=== PATIENT | female | born 1995 | race Caucasian/White ===

== ENCOUNTER 2020-10-16 17:41 | Emergency (ER) | payer OTHER, SELFPAY ==
--- NOTE | 2020-10-16 17:40 | RAD_ITS ---
STUDY: X-RAY - RIGHT ANKLE REASON FOR EXAM: Female, 25 years old. Fall. Lateral foot pain. TECHNIQUE: 3 view(s) of the ankle. COMPARISON: 05/07/2014. Right foot, 10/16/2020. FINDINGS: Normal visualized distal tibia and fibula. Normal medial and lateral malleoli. Normal tibiotalar articulation and ankle mortise. Normal visualized talus and calcaneus. The visualized subtalar, talonavicular, calcaneocuboid and tarsal articulations are normal. There is evidence of a fracture of the distal fifth metatarsal. The soft tissue structures are unremarkable. RAD/Ankle min 3 Views IMPRESSION: 1. Normal x-ray examination of the ankle. 2. Fracture of the fifth metatarsal. Electronically Signed: Jamison Langley DO at 18:02 EDT Tel [phone], Service support ,
[2020-10-16 17:41] VITALS: BP 142/97; PULSE 88; RESP 16; TEMP 36.2; O2SAT 97; BMI 25.0
--- NOTE | 2020-10-16 17:43 | RAD_ITS ---
STUDY: X-RAY - RIGHT FOOT CLINICAL: Female, 25 years old. Fall. TECHNIQUE: 3 view(s) of the foot. COMPARISON: Right foot, 05/07/2014. FINDINGS: Normal talus, calcaneus, and tarsal bones. Normal visualized subtalar, talonavicular, calcaneocuboid, tarsal and tarsometatarsal articulations. Normal first through fourth metatarsi. There is a spiral fracture of the distal shaft of the fifth metatarsal. Normal metatarsophalangeal joint of the great toe. Normal tibial and fibular sesamoid bones. Normal interphalangeal joint of the great toe. Normal phalanges of the great toe. Normal second through fifth metatarsophalangeal joints. Normal interphalangeal joints and phalanges of the lesser toes. Lateral soft tissue swelling. RAD/Foot min 3 Views IMPRESSION: Fracture of the distal fifth metatarsal with associated soft tissue swelling. Electronically Signed: Jamison Langley DO at 18:01 EDT Tel [phone], Service support ,
--- NOTE | 2020-10-16 19:36 | ED.VIS.FALL ---
HPI HPI - Fall History of Present Illness Chief Complaint: Fall Informant: patient Occured/Mechanism Occurred: Today Usually ambulates: Without assistance Pain/Injury Location: Right foot and ankle Pain Location: lower extremity Quality of Pain: Aching Worsened by: Movement Relieved by: Nothing Associated Symptoms Associated Symptoms: Negative for Parasthesias, Weakness, Inability to ambulate and Loss of consciousness Narrative Narrative: Patient presents with right foot and ankle injury that occurred today after a fall. Patient states she fell down some steps. Patient denies any head injury or loss of consciousness. Patient admits to some bruising and swelling over the right fifth metatarsal area. Patient also complains of pain and swelling over the lateral aspect of her right ankle. Patient admits to an abrasion over her right knee as well. Patient states her pain is worse with movement. Patient describes her pain as aching. Patient denies any paresthesias or weakness. Patient denies any other injuries. PFSH PFSH no medical history Home Medications Control Pills 1 tab PO DAILY 03/08/15 [History Last Taken Unknown] hydrocodone-acetaminophen 1 tab PO Q6H PRN PRN 3 Days #10 tablet 10/16/20 [Rx Last Taken Unknown] Allergy/AdvReac Type Severity Reaction Status Date / Time cefuroxime [From Ceftin] Allergy Rash Verified 10/16/20 17:43 no surgical history Social History Smoking Status: Never smoker ROS ROS ED Constitutional Constitutional ED: Denies chills or fever(s) Eyes Eyes: Denies blurry vision or change in vision ENT ENT ED: Denies rhinorrhea or sore throat Cardiovascular Cardiovascular: Denies chest pain or palpitations Respiratory/Chest Respiratory/Chest: Denies cough or dyspnea Gastrointestinal Gastrointestinal: Denies nausea or vomiting Genitourinary Genitourinary ED: Denies dysuria or hematuria Musculoskeletal Musculoskeletal: Denies back pain or neck pain Integumentary Denies abscess or rash Neurologic Neurologic: Denies headache(s) or weakness Allergic/Immunologic Allergic/Immunologic ED: Denies mouth swelling or urticaria EXAM Physical Exam Const Vital Signs: 10/16/20 17:41 Temperature 97.2 F L Temperature Source Temporal Pulse Rate 88 Respiratory Rate 16 Blood Pressure 142/97 H Blood Pressure Mean 112 Pulse Ox 97 Oxygen Delivery Method Room Air Positive well nourished and well developed General Appearance ED: well developed HEENT Reports normocephalic atraumatic Neck full ROM Extremity Extremity Narrative: There is tenderness, edema, and ecchymosis over the lateral aspect of the right foot. There is also tenderness and edema over the lateral malleolus of the right ankle. There is no deformity noted. Range of motion was limited in all motions of the right foot and ankle secondary to pain. Sensation was intact to light touch in all digits. Capillary refill was less than 2 seconds in all digits. There is superficial abrasion over the anterior aspect of the right knee. There is no active bleeding noted. There is full range of motion. There is no effusion. Pedal pulses are equal bilaterally. Neuro oriented x3, CN's II-XII intact bilaterally, moves all extremities, no focal motor deficits and no sensory deficits noted Sensorium / Orientation: alert Psych mental status grossly normal Skin Trauma: abrasion MDM MDM MDM Narrative Medical decision making narrative: X-rays of the right foot were obtained. There are 3 views. On my interpretation, there is a spiral oblique fracture of the distal fifth metatarsal shaft. There is minimal displacement and no angulation. Radiologist also interpreted the x-ray and agrees. X-rays of the right ankle were obtained. There are 3 views. There are no fractures of the ankle bones on my interpretation, there is a fracture of the fifth metatarsal. Radiologist also interpreted the x-rays and agrees. Patient was given a walking boot. Patient was instructed to ice and elevate the right foot and ankle. Patient was given a prescription for [place]. Patient declined crutches. Patient was instructed to follow-up with her primary care physician in 5 to 7 days. Patient was also given referral for podiatry. Patient and family understood and were agreeable with the plan. All questions were answered. Radiography Diagnostic Testing: Radiology Impression Ankle X-Ray 10/16/20 17:40 IMPRESSION: 1. Normal x-ray examination of the ankle. 2. Fracture of the fifth metatarsal. Electronically Signed: Jamison Langley DO at 18:02 EDT Tel [phone], Service support , Foot X-Ray 10/16/20 17:43 IMPRESSION: Fracture of the distal fifth metatarsal with associated soft tissue swelling. Electronically Signed: Jamsion Langley DO at 18:01 EDT Tel [phone], Service support , Discharge Plan Triage Chief Complaint: Fall ED Provider: Gael Beltre Dx/Rx/DC Orders Clinical Impression: Closed nondisplaced fracture of fifth right metatarsal bone Instructions: ED Fracture, Foot Prescriptions: New hydrocodone-acetaminophen [hydrocodone-acetaminophen] 1 TABLET tablet 1 tab PO Q6H PRN PRN (Reason: Pain) 3 Days Qty: 10 RF: 0 No Action Control Pills 1 tab PO DAILY RF: 0 Primary Care Provider: Melvin Langley Referrals: Everardo Small DPM [STAFF PHYSICIAN] - 3-5 Days Melvin Langley MD [Primary Care Provider] - 5-7 Days Disposition Disposition: Home, Self Care
[2020-10-16] MEDS: HYDROcodone Bitartrate/Apap 5/325 Tablet PO (20:51)
[2020-10-16 20:52] VITALS: BP 123/74; PULSE 80; RESP 16; O2SAT 98
== END 2020-10-16 21:24 | disposition home or self-care (01) ==
LOC: ED 19:56
PROVIDERS: Emergency Provider Emergency Medicine; PCP Family Medicine
DX: S92.354A Nondisplaced fracture of fifth metatarsal bone, right foot, initial encounter for closed fracture (principal); W10.9XXA Fall (on) (from) unspecified stairs and steps, initial encounter; Y93.01 Activity, walking, marching and hiking; Y92.89 Other specified places as the place of occurrence of the external cause; Y99.8 Other external cause status
CPT/HCPCS: 73610; 73630; 99284

== ENCOUNTER → 2020-10-19 15:18 | Outpatient (CLI) | payer OTHER, SELFPAY ==
[2020-10-19 18:49] LABS: Vitamin D,25 Hydroxy 33.4 ng/mL
== END ==
PROVIDERS: PCP Family Medicine; Referring Provider Podiatrist; Visit Provider Podiatrist
DX: E55.9 Vitamin D deficiency, unspecified (principal); S92.309A Fracture of unspecified metatarsal bone(s), unspecified foot, initial encounter for closed fracture
CPT/HCPCS: 36415; 82306

== ENCOUNTER 2021-02-23 18:49 | Emergency (ER) | payer OTHER, SELFPAY ==
[2021-02-23 18:50] VITALS: BP 131/87; PULSE 87; RESP 18; TEMP 35.9; O2SAT 100; BMI 25.0
[2021-02-23 19:56] VITALS: BP 131/87; PULSE 87; RESP 18; TEMP 35.9; O2SAT 100
--- NOTE | 2021-02-23 20:12 | CT_ITS ---
STUDY: CTA CHEST REASON FOR EXAM: Female, 25 years old. Covid positive pain under right breast RADIATION DOSAGE (If Supplied By Facility): CTDIvol = ( 8.89 ) mGy, DLP = ( 273.85 ) mGycm TECHNIQUE: The examination was performed with the intravenous administration of IV 100mL Isovue-370. Post-processing of the angiographic images was performed, with multiplanar reformation and 3D reconstruction. Individualized dose optimization techniques were used for this CT. COMPARISON: None. FINDINGS: There is no acute or chronic pulmonary embolism. Aorta is of normal caliber. Lungs are clear. There is no pneumothorax, pulmonary edema or pleural effusions. Mediastinal contents are normal. Osseous structures are intact. Abdominal structures are unremarkable. CT/CTA Chest W/WO Contrast IMPRESSION: 1. No pulmonary embolism 2. No acute chest disease. Electronically Signed: Tc Gregory MD at 21:24 EST Tel , Service support ,
--- NOTE | 2021-02-23 20:14 | EX.ED.DYSGE1 ---
HPI History of Present Illness Chief Complaint: Shortness of Breath Informant: patient Narrative Narrative: 25-year-old female presenting to the emergency room with right lower chest pain. Patient was able to come out of her Covid quarantine on Monday and states that she really had some mild symptoms. She started off with some mild rhinorrhea and then began to have a cough. That subsided and today's cough has been rather dry as compared to the moist cough that it had been. She notes a sharp pain lower anterior right chest that is worse with coughing and deep breathing. Not necessarily tender to palpation. [facility] Medical History (Updated 02/23/21 @ 21:[address] Bulmaro Zaldivar DO) COVID-19 Home Medications Control Pills 1 tab PO DAILY 03/08/15 [History Last Taken Unknown] Allergy/AdvReac Type Severity Reaction Status Date / Time cefuroxime [From Ceftin] Allergy Rash Verified 02/23/21 18:52 Social History (Updated 02/23/21 @ 20:[address] Bulmaro Zaldivar DO) Smoking Status: Never smoker substance use type: does not use ROS ROS ED Constitutional Constitutional ED: Denies chills, fever(s) or weight loss Eyes Eyes: Denies change in vision or diplopia ENT ENT ED: Reports rhinorrhea; Denies ear pain or sore throat Cardiovascular Cardiovascular: Reports chest pain; Denies orthopnea, palpitations or racing heartbeat Respiratory/Chest Respiratory/Chest: Reports cough; Denies dyspnea or orthopnea Gastrointestinal Gastrointestinal: Denies abdominal pain, diarrhea, nausea or vomiting Genitourinary Genitourinary ED: Denies dysuria, hematuria or urinary frequency Musculoskeletal Musculoskeletal: Denies arthralgias or myalgias Integumentary Denies abscess or rash Neurologic Neurologic: Denies headache(s) or weakness Psychiatric Psychiatric: Denies anxiety, depression, suicidal ideation or suicidal thoughts Endocrine Endocrinology: Denies polydipsia, polyphagia or polyuria Allergic/Immunologic Allergic/Immunologic ED: Denies mouth swelling, tongue swelling or urticaria EXAM Physical Exam Const Vital Signs: 02/23/21 18:50 02/23/21 19:56 Temperature 96.7 F L 96.7 F L Temperature Source Temporal Temporal Pulse Rate 87 87 Respiratory Rate 18 18 Respiratory Effort Short of Breath Blood Pressure 131/87 H 131/87 H Blood Pressure Mean 101 101 Pulse Ox 100 100 Oxygen Delivery Method Room Air Room Air Positive well nourished and well developed General Appearance ED: well developed HEENT Reports normocephalic, head/scalp atraumatic, TM's clear and moist mucous membranes Negative for trauma Tympanic Membrane ED: Yes TM's clear Eyes PERRL and EOMs intact bilaterally Neck no lymphadenopathy, supple and no JVD Resp normal respiratory effort and clear to auscultation bilaterally Cardio regular rate, regular rhythm and no murmurs GI normal to inspection, nondistended, normoactive bowel sounds and non-tender Palpation: soft Back/Spine no CVA tenderness and normal ROM Extremity normal to inspection General Extremety ED: Negative for edema General Extremity: Negative for edema Neuro oriented x3 and CN's II-XII intact bilaterally Sensorium / Orientation: alert Motor Exam: strength 5/5 throughout Psych mental status grossly normal Mood & Affect: Negative for depressed or tearful Skin no rashes or lesions noted and no wounds MDM MDM MDM Narrative Medical decision making narrative: Basic blood work was negative. CTA of the chest shows no pulmonary embolism or acute chest disease. Patient will be discharged home with supportive care return if worsening or concerns Lab Data Attestation: I reviewed the patient's lab results. Labs: Laboratory Results - last 24 hr 02/23/21 02/23/21 02/23/21 20:25 20:25 20:25 WBC 6.0 RBC 4.67 Hgb 14.0 Hct 42.6 MCV 91.2 MCH 30.0 MCHC 32.9 RDW Std Deviation 39.7 RDW Coeff of [place] 11.8 Plt Count 324 MPV 9.1 Immature Gran % (Auto) 0.300 Neut % (Auto) 47.4 Lymph % (Auto) 36.2 [place] % (Auto) 9.9 Eos % (Auto) 5.4 H Baso % (Auto) 0.8 Absolute Neuts (auto) 2.8 Absolute Lymphs (auto) 2.16 Nucleated RBC % 0 Sodium 141 Potassium 4.0 Chloride 105 Carbon Dioxide 27.0 Anion Gap 9 BUN 18 Creatinine 0.94 Estim Creat Clear Calc 88.97 Est GFR (MDRD) Af Amer 93 Est GFR (MDRD) Non-Af 77 BUN/Creatinine Ratio 19.2 Glucose 85 Calcium 9.1 Serum , Qual NEGATIVE Radiography Diagnostic Testing: Clinical Impression(s) from Imaging Studies Chest CTA 02/23/21 20:12 IMPRESSION: 1. No pulmonary embolism 2. No acute chest disease. Electronically Signed: Tc Gregory MD at 21:24 EST Tel , Service support , Discharge Plan Triage Chief Complaint: Shortness of Breath ED Provider: Bulmaro Zaldivar Dx/Rx/DC Orders Clinical Impression: Chest pain Instructions: ED Chest Pain, Uncertain Cause Prescriptions: No Action Control Pills 1 tab PO DAILY RF: 0 Primary Care Provider: Melvin Langley Referrals: Melvin Langley MD [Primary Care Provider] - As Needed Disposition Disposition: Home, Self Care
[2021-02-23 20:32] LABS: Absolute Lymphocyte Count 2.16 X10^3/uL (0.83-4.51); Absolute Neutrophil Count 2.8 X10^3/uL (2.0-7.7); Basophil# 0.05 X10^3/uL; Basophil% 0.8 % (0-1); Eosinophil# 0.32 X10^3/uL; Eosinophils% 5.4 % (0-5); Hematocrit 42.6 % (37-47); Lymphocyte # 2.16 X10^3/ul (0.83-4.51); Lymphocyte % 36.2 % (19-41); Mean Corp Hgb Conc 32.9 g/dL (32-36); Mean Corpuscular Volume 91.2 fL (81-99); Mean Platelet Vol. 9.1 fl (6.2-12.0); Monocyte# 0.59 X10^3/uL; Monocyte% 9.9 % (0-10); NRBC Flagged by Analyzer 0 % (0-5); Neutrophil # 2.83 X10^3/uL (2.7-7.7); Neutrophil % 47.4 % (47-70); Platelet Count 324 K/mm3 (150-450); RBC Distribution Width CV 11.8 % (11.6-14.6); RBC Distribution Width SD 39.7 fl (35.1-43.9); Red Blood Count 4.67 M/mm3 (4.2-5.4)
[2021-02-23 20:49] LABS: Internal QC Validated? YES +Cl - CLEAR BKGD; Pregnancy, Serum, hCG Quali. NEGATIVE Negative
[2021-02-23 20:53] LABS: Anion Gap 9 (5-15); BUN 18 mg/dL (7-18); BUN/Creat Ratio 19.2 RATIO (10-20); Calcium,Total 9.1 mg/dL (8.5-10.1); Chloride 105 mmol/L (98-107); Creatinine, Serum 0.94 mg/dL (0.55-1.02); EST Glomerular Filtration Rate 77 mL/min (>60); Est Glom Filt Rate - Afr Amer 93 mL/min (>60); Estimated Creatinine Clearance 88.97 ml/min; Glucose 85 mg/dL (74-106); Sodium Level 141 mmol/L (136-145)
== END 2021-02-23 21:57 | disposition home or self-care (01) ==
PROVIDERS: Emergency Provider Emergency Medicine; PCP Family Medicine; Visit Provider Emergency Medicine
DX: R07.9 Chest pain, unspecified (principal); R06.02 Shortness of breath; Z79.3 Long term (current) use of hormonal contraceptives; Z86.16 Personal history of COVID-19
CPT/HCPCS: 71275; 80048; 84703; 85025; 99284; Q9967

== ENCOUNTER → 2021-09-02 | Outpatient (CLI) | payer MEDICAID, SELFPAY ==
[2021-09-02 12:53] LABS: T4 Free Direct 1.29 ng/dL (0.76-1.46); Thyroid Stim Hormone (TSH) 1.93 uIU/mL (0.358-3.74)
== END | disposition home or self-care (01) ==
LOC: MTLAB 10:23
PROVIDERS: PCP Family Medicine; Referring Provider Family Medicine; Visit Provider Family Medicine
DX: N92.6 Irregular menstruation, unspecified (principal)
CPT/HCPCS: 36415; 84439; 84443

== ENCOUNTER → 2021-11-01 | Outpatient (CLI) | payer MEDICAID, SELFPAY ==
[2021-11-12 15:08] LABS: Lyme IgG P18 Ab Absent (.); Lyme IgG P23 Ab Absent (.); Lyme IgG P28 Ab Absent (.); Lyme IgG P30 Ab Absent (.); Lyme IgG P39 Ab Absent (.); Lyme IgG P41 Ab Absent (.); Lyme IgG P45 Ab Absent (.); Lyme IgG P58 Ab Absent (.); Lyme IgG P66 Ab Absent (.); Lyme IgG P93 Ab Absent (.); Lyme IgM P23 Ab Absent (.); Lyme IgM P39 Ab Absent (.); Lyme IgM P41 Ab Absent (.)
[2021-11-12 20:40] LABS: Lyme IgG WB Interpretation Negative (.); Lyme IgM WB Interpretation Negative (.)
== END | disposition home or self-care (01) ==
LOC: MTLAB 13:42
PROVIDERS: PCP Family Medicine; Referring Provider Family Medicine; Visit Provider Family Medicine
DX: S30.816A Abrasion of unspecified external genital organs, female, initial encounter (principal); A69.20 Lyme disease, unspecified; W57.XXXA Bitten or stung by nonvenomous insect and other nonvenomous arthropods, initial encounter
CPT/HCPCS: 36415; 86617

== ENCOUNTER → 2021-11-29 | Outpatient (CLI) | payer MEDICAID, SELFPAY ==
--- NOTE | 2021-11-29 | LES_PTH ---
PATIENT: ARIES PARISI [facility][id number] AGE/SX: 26/F ROOM: RE11/29/[address]: Dr. Bella Ma DO : 1995 BED: DIS: 11/29/2021 SPEC #: [id number] RECD: 11/29/21 18:02 STATUS: AME ALTAGRACIA #: [id number] SHANTELL: 11/29/21 00:[address]: Bella Ma DEPT: SURGICAL PATHOLOGY RECD BY: Tyler Leos ENTERED: 11/30/21 11:46 SP TYPE: Lesion OTHR DR: Dr. Melvin Langley MD Tissues: Skin of eyelid, NOS Procedures: Surgery Specimen Level IV HEADER OPERATION: Excision right preauricular lesion PRE-OP DIAGNOSIS: Telangiectasia, painful, cyst, mucinous TISSUE SUBMITTED: Preauricular skin lesion MICROSCOPIC DIAGNOSIS Preauricular skin lesion, biopsy: Granulation with associated acute and chronic inflammation. Focal changes suggestive of an epidermal inclusion cyst. See comment. AM:[email or web address] 12/01/2021 COMMENT There are focal changes suggestive of an epidermal inclusion cyst. Clinical correlation is suggested. MICROSCOPIC DESCRIPTION Slides are reviewed. GROSS DESCRIPTION Received in fixative is one container labeled with the patient's name and designated right preauricular lesion. The specimen consists of a shave biopsy of beverly-white skin measuring 0.6 x 0.4 x 0.1 cm. This piece is inked and serially sectioned. Also present in the container is a small piece of beverly-white skin measuring 0.2 x 0.1 x 0.1 cm. The entire specimen is submitted in one cassette. / LUIS F:arcadio 11/30/2021 TC:2 CPT: 10623
== END | disposition home or self-care (01) ==
LOC: LABSPEC 14:08
PROVIDERS: PCP Family Medicine; Visit Provider Family Medicine
DX: I78.1 Nevus, non-neoplastic (principal)
CPT/HCPCS: 88305

== ENCOUNTER → 2022-11-30 | Outpatient (CLI) | payer OTHER, MEDICAID, SELFPAY | END | disposition home or self-care (01) | LOC: LABSPEC 12:56 | PROVIDERS: PCP Family Medicine; Referring Provider Registered Nurse; Visit Provider Registered Nurse | DX: Z34.90 Encounter for supervision of normal pregnancy, unspecified, unspecified trimester (principal); Z3A.00 Weeks of gestation of pregnancy not specified | CPT/HCPCS: 87086; 87088 ==

== ENCOUNTER → 2022-12-14 | Outpatient (CLI) | payer OTHER, SELFPAY ==
[2022-12-14 14:23] LABS: NATERA MAILED SPECIMEN
[2022-12-14 16:04] LABS: Absolute Lymphocyte Count 2.41 X10^3/uL (0.83-4.51); Absolute Neutrophil Count 8.5 X10^3/uL (2.0-7.7); Basophil# 0.07 X10^3/uL; Basophil% 0.6 % (0-1); Eosinophil# 0.14 X10^3/uL; Eosinophils% 1.2 % (0-5); Hematocrit 38.5 % (37-47); Hemoglobin 13.1 g/dL (12.0-15.0); Lymphocyte # 2.41 X10^3/ul (0.83-4.51); Lymphocyte % 20.5 % (19-41); Mean Corpuscular Hgb 31.3 pg (27.0-32.0); Mean Corpuscular Volume 91.9 fL (81-99); Mean Platelet Vol. 9.6 fl (6.2-12.0); Monocyte# 0.56 X10^3/uL; Monocyte% 4.8 % (0-10); NRBC Flagged by Analyzer 0 % (0-5); Neutrophil # 8.49 X10^3/uL (2.7-7.7); Neutrophil % 72.3 % (47-70); Platelet Count 362 K/mm3 (150-450); RBC Distribution Width CV 12.7 % (11.6-14.6); RBC Distribution Width SD 42.1 fl (35.1-43.9); Red Blood Count 4.19 M/mm3 (4.2-5.4); White Blood Count 11.7 K/mm3 (4.4-11.0)
[2022-12-14 17:35] LABS: HIV - WCH Non-Reactive (Nonreactive); Hepatitis B Surface Antigen Non-Reactive (Nonreactive); Hepatitis C Antibody Non-Reactive (Nonreactive); Rubella IgG Reactive (Nonreactive); Syphilis Antibodies Non-reactive
== END | disposition home or self-care (01) ==
LOC: MTLAB 12:48
PROVIDERS: PCP Family Medicine; Referring Provider Registered Nurse; Visit Provider Registered Nurse
DX: Z34.90 Encounter for supervision of normal pregnancy, unspecified, unspecified trimester (principal); Z3A.00 Weeks of gestation of pregnancy not specified
CPT/HCPCS: 36415; 85025; 86703; 86762; 86780; 86803; 86850; 86900; 86901; 87340; 87491; 87591

== ENCOUNTER 2023-01-08 14:05 | Emergency (ER) | payer OTHER, MEDICAID, SELFPAY ==
[2023-01-08 14:06] VITALS: BP 135/79; PULSE 87; RESP 16; TEMP 37.1; O2SAT 97; BMI 26.2
--- NOTE | 2023-01-08 14:50 | US_ITS ---
STUDY: SECOND AND THIRD TRIMESTER OBSTETRICAL ULTRASOUND - LIMITED REASON FOR EXAM: Female, 27 years old vaginal bleeding LMP: 09/23/2022 PRIOR ULTRASOUND: None. TECHNIQUE: Transabdominal TECHNICAL QUALITY: Adequate. FINDINGS: There is a single intrauterine fetus. The fetus is in a breech presentation. There is demonstrated cardiac activity with a heart rate of 164 bpm. There is a normal amniotic fluid volume. The largest amniotic fluid pocket measures 3.6 cm. The amniotic fluid index (DAVID) is cm. The placenta is anterior in location and is not low lying. There are Grade 0 placental changes. The cervix measures 3.4 cm cm in length. BIOMETRY: BPD: : weeks, days HC: : weeks, days AC: 9.3 cm: 15 weeks, 3 days FL: : weeks, days Age by LMP: 15 weeks, 2 days. ROMY by LMP: 06/30/2023. age by prior US: weeks, days. ROMY by prior US: . age by current US: 15 weeks, 3 days. ROMY by current US: 06/29/2023. Estimated weight: grams, +/- grams, percentile. Gender: US/OB Limited (No Biometrics) IMPRESSION: Living intrauterine of 15 weeks 3 days as described above. Electronically Signed: Jonn Fisher MD at 17:14 EST ,
--- NOTE | 2023-01-08 14:58 | ED.VIS.FEGU ---
HPI <ELIZABETH Marcial - Last Filed: 01/08/23 17:39> HPI - Female History of Present Illness Chief Complaint: Vag Bld, Preg Narrative Narrative: Patient presenting today due to a vaginal bleed that started this afternoon after having intercourse. She reports that this has happened in the past after having intercourse but she has never had this much bleeding. She reports that the bleeding has diminished and is now a light spotting, she has not had to use a tampon or pad. She is G1, P0, currently 15 weeks , she follows with Dr. Paredes. She reports having minimal pelvic pain but reports that she does have this occasionally. PFSH <ELIZABETH Marcial - Last Filed: 01/08/23 17:39> PFS Medical History Anxiety COVID-19 Home Medications inulin 2 gram chewable tablet (Fiber Gummies) 2 g PO DAILY 11/30/22 [History Last Taken Unknown] magnesium 200 mg tablet 200 mg PO DAILY 11/30/22 [History Last Taken Unknown] multivitamin no.47-iron fum 27 mg-folate no.1 1 mg-dha 300 mg capsule (PNV-DHA) 1 cap PO DAILY 11/30/22 [History Last Taken Unknown] escitalopram oxalate 10 mg tablet 10 mg PO DAILY 01/08/23 [History Last Taken Unknown] Allergy/AdvReac Type Severity Reaction Status Date / Time cefuroxime [From Ceftin] Allergy Rash Verified 01/08/23 14:06 Family History Grandfather Throat cancer Grandfather Alzheimer disease Dementia Grandmother Cancer Mother Breast cancer, Onset Age: 25 Endometriosis Father No problems noted. Social History adopted: No household members: spouse housing: house current occupational status: employed current occupation: [employer] at [employer] current occupational exposures/hazards: Yes pets and animals: Yes history of recent travel: No sexually active: Yes Smoking Status: Former smoker how long ago did patient quit smoking: quit a month ago since alcohol intake: never substance use type: does not use seatbelt use: always do you feel safe at home: Yes additional social history: Spouse - Marcos Schimdt ROS <ELIZABETH Marcial - Last Filed: 01/08/23 17:39> ROS ED Constitutional Constitutional ED: Denies chills or fever(s) Cardiovascular Cardiovascular: Denies chest pain Respiratory/Chest Respiratory/Chest: Denies cough or dyspnea Gastrointestinal Gastrointestinal: Denies abdominal pain, nausea or vomiting Genitourinary Genitourinary ED: Denies dysuria, hematuria or urinary urgency Musculoskeletal Musculoskeletal: Denies arthralgias or myalgias Neurologic Neurologic: Denies weakness EXAM <ELIZABETH Marcial - Last Filed: 01/08/23 17:39> Physical Exam Const Vital Signs: 01/08/23 14:06 Temperature 98.7 F Temperature Source Temporal Pulse Rate 87 Respiratory Rate 16 Blood Pressure 135/79 H Blood Pressure Mean 97 Pulse Ox 97 Oxygen Delivery Method Room Air Positive well nourished, well developed and no apparent distress General Appearance ED: well developed HEENT Reports normocephalic and head/scalp atraumatic Mouth ED: Yes moist mucous membranes normal Eyes PERRL and EOMs intact bilaterally Neck full ROM and supple Chest Wall inspection of chest normal Resp normal respiratory effort and clear to auscultation bilaterally Cardio regular rate and regular rhythm GI soft to palpation, non-tender, non-distended and no masses Back/Spine normal ROM and normal to inspection Extremity normal to inspection and full ROM Neuro oriented x3, CN's II-XII intact bilaterally, moves all extremities, no focal motor deficits and no sensory deficits noted Sensorium / Orientation: awake and alert Psych mental status grossly normal and thought process normal Skin no rashes or lesions noted and no wounds <Dr. Yordan Geronimo MD - Last Filed: 01/08/23 15:28> Physical Exam Const Vital Signs: 01/08/23 14:06 Temperature 98.7 F Temperature Source Temporal Pulse Rate 87 Respiratory Rate 16 Blood Pressure 135/79 H Blood Pressure Mean 97 Pulse Ox 97 Oxygen Delivery Method Room Air MDM <ELIZABETH Marcial - Last Filed: 01/08/23 17:39> MDM MDM Narrative Medical decision making narrative: Patient presenting due to vaginal bleeding that occurred after having intercourse with her this afternoon. She has had vaginal bleeding in the past after intercourse while being but reports that she seems to be bleeding more now than she did in the past which concerned her. She reports that she is having mild spotting now. She is currently 15 weeks , follows with Dr. Paredes. Her blood type is A positive. Serum quant will be obtained and transvaginal ultrasound. Transvaginal ultrasound shows a live intrauterine of 15 weeks and 3 days. She has been encouraged to have pelvic rest, avoid intercourse/heavy lifting. She is to follow-up with her OB and will be discharged home in stable condition. She is not having any increased bleeding, she is comfortable with plan. I have personally performed a face to face assessment of the patient and have reviewed the KENNY Note. I performed a substantive portion of the visit including all aspects of the following. My gaviria findings include: History is 27-year-old female Ab0. Approximately [address] 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 Patient had intercourse today and had some vaginal bleeding. Her blood type is a positive. She is really not having much pelvic cramping is had no dysuria or fever. Exam is [well-appearing 27-year-old female. Vital signs stable afebrile. HEENT exam normal. Lungs clear. Heart regular rhythm. Abdomen soft nontender. Moving all 4 extremities. Nontender no edema. Neurologically she is awake and alert with no focal motor deficits.] Medical Decision Making [patient in second trimester with vaginal bleeding. Quant and pelvic ultrasound be obtained. Her blood type is known and is A positive.] Other additions or changes: [None] Lab Data Labs: Laboratory Results - last 24 hr 01/08/23 14:51 HCG, Quant [id number] H Radiography Diagnostic Testing: Clinical Impression(s) from Imaging Studies Obstetrics Ultrasound 01/08/23 14:50 IMPRESSION: Living intrauterine of 15 weeks 3 days as described above. Electronically Signed: Jonn Fisher MD at 17:14 EST , <Dr. Yordan Geronimo MD - Last Filed: 01/08/23 15:28> [facility] Narrative Medical decision making narrative: Patient presenting due to vaginal bleeding that occurred after having intercourse with her this afternoon. She has had vaginal bleeding in the past after intercourse while being but reports that she seems to be bleeding more now than she did in the past which concerned her. She is currently 15 weeks , follows with Dr. Paredes. Her blood type is A positive. Serum quant will be obtained and transvaginal ultrasound. I have personally performed a face to face assessment of the patient and have reviewed the KENNY Note. I performed a substantive portion of the visit including all aspects of the following. My gaviria findings include: History is 27-year-old female Ab0. Approximately [address] 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 Patient had intercourse today and had some vaginal bleeding. Her blood type is a positive. She is really not having much pelvic cramping is had no dysuria or fever. Exam is [well-appearing 27-year-old female. Vital signs stable afebrile. HEENT exam normal. Lungs clear. Heart regular rhythm. Abdomen soft nontender. Moving all 4 extremities. Nontender no edema. Neurologically she is awake and alert with no focal motor deficits.] Medical Decision Making [patient in second trimester with vaginal bleeding. Quant and pelvic ultrasound be obtained. Her blood type is known and is A positive.] Other additions or changes: [None] History & Record Review Discussion w/independent historian: Patient and Family Lab Data Labs: Laboratory Results - last 24 hr 01/08/23 14:51 HCG, Quant [id number] H Radiography Diagnostic Testing: Clinical Impression(s) from Imaging Studies Obstetrics Ultrasound 01/08/23 14:50 IMPRESSION: Living intrauterine of 15 weeks 3 days as described above. Electronically Signed: Jonn Fisher MD at 17:14 EST , Discharge Plan Triage Chief Complaint: Vag Bld, Preg ED Midlevel Provider: Morenita Edwards ED Provider: Yordan Geronimo Dx/Rx/DC Orders Clinical Impression: Vaginal bleeding during , Second trimester Instructions: Bleeding During Early Prescriptions: No Action magnesium 200 mg tablet 200 mg PO DAILY PNV-DHA 27 mg iron-1 mg -300 mg capsule 1 cap PO DAILY Fiber Gummies 2 gram tablet,chewable 2 g PO DAILY escitalopram oxalate 10 mg tablet 10 mg PO DAILY Patient Comments: TAKE 1 TABLET BY MOUTH EVERY DAY Primary Care Provider: Bella Ma Referrals: Bella Ma DO [Primary Care Provider] - Activity Restrictions/Additional Instructions: Follow-up with your OB, return for any worsening of your symptoms. Refrain from having sexual intercourse or any heavy lifting. Disposition Disposition: Home, Self Care
[2023-01-08 17:40] VITALS: RESP 14
== END 2023-01-08 17:41 | disposition home or self-care (01) ==
PROVIDERS: Physician Assistant; Emergency Provider Emergency Medicine; PCP Family Medicine; Visit Provider Emergency Medicine
DX: O20.9 Hemorrhage in early pregnancy, unspecified (principal); Z87.891 Personal history of nicotine dependence; Z3A.15 15 weeks gestation of pregnancy; O99.342 Other mental disorders complicating pregnancy, second trimester; F41.9 Anxiety disorder, unspecified
CPT/HCPCS: 76815; 84702; 99282; A4216

== ENCOUNTER → 2023-01-24 | Outpatient (CLI) | payer OTHER, SELFPAY ==
[2023-01-24 07:47] LABS: Mucous, Urine 0 SEEN /hpf (<or=2+)
[2023-01-24 10:10] LABS: Color, Urine Yellow (Yellow); Glucose, Dipstick Normal (Normal); Ketone-Dipstick Negative (Negative); Leukocyte Esterase-Dipstick 25 /ul (Negative); Nitrite-Dipstick Negative (Negative); Occult Blood-Urine 50 /ul (Negative); Protein-Dipstick 15 mg/dl (Negative); Specific Gravity, Urine 1.015 (1.002-1.030); Urine Bilirubin Dipstick Negative (Negative); Urine Clarity Clear (Clear); Urine Urobilinogen Normal (Normal)
[2023-01-24 10:28] LABS: Amorphous Sediment 2+; Bacteria 2+ /hpf (None Seen); Red Blood Cells-Urine 0-5 SEEN /hpf (0-5); Squamous Epithelial Cells - UA 5-10 SEEN /hpf (5-10); White Blood Cells 0-5 SEEN /hpf (0-5)
== END | disposition home or self-care (01) ==
PROVIDERS: PCP Family Medicine; Visit Provider Physician Assistant
DX: R30.0 Dysuria (principal)
CPT/HCPCS: 81001; 87086

== ENCOUNTER → 2023-01-30 | Outpatient (CLI) | payer OTHER, SELFPAY | END | disposition home or self-care (01) | PROVIDERS: PCP Family Medicine; Referring Provider Nurse Practitioner Women's Health; Visit Provider Nurse Practitioner Women's Health | DX: O26.899 Other specified pregnancy related conditions, unspecified trimester (principal); R10.2 Pelvic and perineal pain; R30.0 Dysuria | CPT/HCPCS: 87070; 87086; 87205 ==

== ENCOUNTER → 2023-03-09 | Outpatient (CLI) | payer OTHER, SELFPAY ==
--- NOTE | 2023-03-09 14:22 | US_ITS ---
STUDY: SECOND AND THIRD TRIMESTER OBSTETRICAL ULTRASOUND REASON FOR EXAM: Female, 27 years old anatomy LMP: 09/23/2022 TECHNIQUE: Transabdominal TECHNICAL QUALITY: Adequate. PRIOR ULTRASOUND: 01/08/2023 FINDINGS: There is a single intrauterine fetus. The fetus is in a transverse lie with the head on the maternal right side. There is demonstrated cardiac activity with a heart rate of 155 bpm. There is a normal amniotic fluid volume. The largest amniotic fluid pocket measures 4.0 cm. The amniotic fluid index (DAVID) is cm. The placenta is anterior in location and is not low lying. There are Grade 0 placental changes. The cervix measures 4.4 cm in length. The bilateral adnexal regions are normal. BIOMETRY: BPD: 5.7 cm: 23 weeks, 3 days HC: 21.2 cm: 23 weeks, 2 days AC: 20.0 cm: 24 weeks, 5 days FL: 4.0 cm: 22 weeks, 6 days CI: 75.97 FL/BPD: 69.86 FL/HC: 18.83 FL/AC: 19.89 HC/AC: 1.06 age by current US: 23 weeks, 3 days. ROMY by current US: 07/03/2023. Estimated weight: 640 grams, +/- 96 grams, 43 %. age by prior US: weeks, days. ROMY by prior US: . Age by LMP: 23 weeks, 6 days. RMOY by LMP: 06/30/2023. ANATOMY: Gender: Male Cranium: Normal lateral ventricles. Normal choroid plexus. Normal cerebellum. Normal cisterna magna. Normal face, nose and lips. Chest: Normal 4-chamber heart. Abdomen/Pelvis: Normal diaphragm. Normal stomach. Normal abdominal wall. Normal cord insertion. Normal 3 vessel cord. Normal kidneys. Normal bladder. Spine: Normal cervical spine. Normal thoracic spine. Normal lumbar spine. Normal sacrum. Extremities: Normal bilateral upper extremities. Normal bilateral lower extremities. US/OB Anatomy Scan IMPRESSION: Living intrauterine of 23 weeks 3 days as described above. Electronically Signed: Jonn Fisher MD at 23:29 EST ,
--- OUTSIDE RECORDS SUMMARY | 2023-03-09 14:46 | XMS RPT_ITS | CCD ---
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 Name Role Phone Melvin Langley MD Primary Care Provider MELVIN LANGLEY Primary Care Unavailable BRUNILDA CARTAGENA Attending Unavailable MELVIN LANGLEY Primary Care Unavailable BRUNILDA CARTAGENA Referring Unavailable MELVIN LANGLEY Primary Care Unavailable DR LYNETTE COBURN DO Primary Care Physician TAI MCGHEE MD Attending Unavailable DR LYNETTE COBURN DO Primary Care Unavailable TAI MCGHEE MD Attending Unavailable DR LYNETTE COBURN DO Primary Care Unavailable Allergies Allergy Classification Reported Allergen(s) Allergy Type Date of Onset Reaction(s) Facility (3 sources) cefdinir; Translations: [CEFDINIR] Drug Allergy 03-29-2011 GI Upset [facility] Work Phone: (4 sources) Coconut extract; Translations: [COCONUT] Drug Allergy 09-11-2017 Hives [facility] (3 sources) Wheat gluten extract; Translations: [GLUTEN] Drug Allergy 10-21-2020 Rash, GI Upset [facility] (1 source) Gluten Food allergy [facility] Medications Completed/Discontinued Medications Medication Drug Class(es) Dates Sig (Normalized) Sig (Original) Albuterol (2 sources) beta2-Adrenergic Agonist ALBUTER OL SULFATE ORAL Take by mouth. 0 Active Problems Active Problems Problem Classification Problem Date Documented Date Episodic/Chronic Contraceptive and procreative management (1 source) Oral contraception; Translations: [Encounter for surveillance of contraceptive pills] Episodic Immunizations and screening for infectious disease (2 sources) Patient encounter status; Translations: [Encounter for screening for infections with a predominantly sexual mode of transmission] Episodic Menstrual disorders (4 sources) Secondary amenorrhea; Translations: [Secondary amenorrhea] Onset: 08-18-2009 Chronic Other female genital disorders (1 source) Vaginal discharge; Translations: [Other specified noninflammatory disorders of vagina] Episodic Other upper respiratory infections (1 source) Pharyngitis; Translations: [Acute pharyngitis, unspecified] Episodic Past or Other Problems Problem Classification Problem Date Documented Da te Episodic/Chronic Other injuries and conditions due to external causes (2 sources) Foreign body in esophagus; Translations: [Unspecified foreign body in esophagus causing other injury, initial encounter] Onset: 03-14-2015 03-14-2015 Episodic Results Test Name Value Interpretation Reference Range Facil ity Vital Signs Date Time Vital Sign Value Performing Clinician Facility 02-15-2022 12:15-0500 Body temperature 98.24 [degF] TAI MCGHEE MD [facility] 02-15-2022 12:15-0500 Body weight 71.5 kg TAI MCGHEE MD [facility] 02-15-2022 12:15-0500 Diastolic Blood Pressure Non-Invasive 76 1 TAI MCGHEE MD [facility] 02-15-2022 12:15-0500 Heart rate 130 /min TAI MCGHEE MD [facility] 02-15-2022 12:15-0500 Respiratory rate 16 /min TAI MCGHEE MD [facility] 02-15-2022 12:15-0500 Systolic Blood Pressure Non-Invasive 158 1 TAI MCGHEE MD [facility] 02-11-2022 14:44-0500 Body temperature 98.71 [degF] Everardo Alvarado APRN.CNP Work Phone: [facility] 02-11-2022 14:44-0500 Body weight 73.39 kg Everardo Alvarado APRN.CNP Work Phone: [facility] 02-11-2022 14:44-0500 Diastolic blood pressure 82 mm[Hg] Everardo Robertleearnestine HOSPITAL PHARMACY TECHNICIAN.[employer] Work Phone: [facility] 02-11-2022 14:44-0500 Heart rate 110 /min Everardo Stewardearnestine HOSPITAL PHARMACY TECHNICIAN.[employer] Work Phone: [facility] 02-11-2022 14:44-0500 Respiratory rate 18 /min Everardo Stewardearnestine HOSPITAL PHARMACY TECHNICIAN.[employer] Work Phone: [facility] 02-11-2022 14:44-0500 SaO2% (BldA) [Mass fraction] 96 % Everardo Stewardearnestine HOSPITAL PHARMACY TECHNICIAN.[employer] Work Phone: [facility] 02-11-2022 14:44-0500 Systolic blood pressure 118 mm[Hg] Everardonamrata Jonesemmyearnestine HOSPITAL PHARMACY TECHNICIAN.[employer] Work Phone: [facility] 11-10-2021 15:48-0400 Body height 170.2 cm Brunilda Cartagena HOSPITAL PHARMACY TECHNICIAN.[employer] Work Phone: [facility] 11-10-2021 15:48-0400 Body weight 75.3 kg Brunilda Cartagena HOSPITAL PHARMACY TECHNICIAN.[employer] Work Phone: [facility] 11-10-2021 15:48-0400 Diastolic blood pressure 76 mm[Hg] Brunilda Cartagena HOSPITAL PHARMACY TECHNICIAN.[employer] Work Phone: [facility] 11-10-2021 15:48-0400 Systolic blood pressure 126 mm[Hg] Brunilda Cartagena HOSPITAL PHARMACY TECHNICIAN.[employer] Work Phone: [facility] Encounters Encounter Date Encounter Type Care Provider Facility Start: 02-15-2022 End: 02-15-2022 Emergency department patient visit TAI MCGHEE MD Facility:B Start: 02-15-2022 End: 02-15-2022 Emergency department patient visit TAI MCGHEE MD [facility] Start: 02-11-2022 End: 02-11-2022 ambulatory MELVIN LANGLEY Facility:[facility] Start: 02-11-2022 End: 02-11-2022 Office outpatient visit 15 minutes Everardo Alvarado APRN.CNP Work Phone: [facility] Procedures Date Procedure Procedure Detail Performing Clinician Start: 02-11-2022 STREP A MOLECULAR (POC) Everardo Alvarado APRN.CNP Work Phone: Plan of Treatment Date Care Activity Detail Author Start: 09-16-2022 PAP TESTING PAP TESTING [facility] Start: 11-10-2021 End: 01-10-2022 Choriogonadotropin.beta subunit [Units/volume] in Serum or Plasma [facility] Work Phone: Immunizations Immunization Date Immunization Notes Care Provider Emeli gonzalez 05-19-2009 human papilloma viru s vaccine, quadrivalent Brunilda Cartagena APRN.[employer] Work Phone: [facility] Work Phone: 12-23-2008 human papilloma viru s vaccine, quadrivalent Brunilda Cartagena RADHA.[employer] Work Phone: [facility] Work Phone: 10-16-2008 human papilloma viru s vaccine, quadrivalent Brunilda Cartagena HOSPITAL PHARMACY TECHNICIAN.[employer] Work Phone: [facility] Work Phone: Payers Date Payer Category Payer Unknown [id number] 2021 Medicaid MEDICAID [facility] MEDICAID [id number] 2021-Present [phone] [address] [place] [address] Medicaid [id number] 2021 Medicaid [id number] 1995 Unknown [id number] 1995 Unknown [id number] Social History Date Type Detail Facility Start: 11-10-2021 Tobacco smoking stat us NHIS Ex-smoker [facility] Work Phone: History of tobacco use Current smoker [facility] Work Phone: History of tobacco use Cigarette Smoker C [facility] Work Phone: Start: 11-10-2021 Tobacco use and exposure Smokeless tobacco non-user [facility] Work Phone: Start: 11-10-2021 End: 02-11-2022 Alcohol intake Current drinker of alcohol (finding) [facility] Start: 09-17-2019 History SDOH Alcohol Frequency 2 [facility] Start: 09-17-2019 History SDOH Alcohol Binge 1 [facility] Start: 09-05-2016 History SDOH Alcohol Comment Occasionally [facility] Start: 09-17-2019 History SDOH Social Connections Phone 3 [facility] Start: 09-17-2019 History SDOH Social Connections Living 7 [facility] Start: 09-17-2019 History SDOH Physica l Activity DPW 4 [facility] Start: 09-17-2019 History SDOH Physica l Activity MPS 6 [facility] Start: 11-10-2021 Tobacco Comment [facility] Start: 1995 Sex Assigned At Not on file C [facility] Tobacco smoking status No Smokin g Status Entered [facility] Sex Assigned At Female [facility] Functional Status Date Assessment Result Facility 02-15-2022 Functional Status Standard Safet y ID band on, Call device within reach, Bed in low position, Wheels locked, Upper/Half-Length side-rails up, Bedside Cart Locked, Safety level maintained [facility] Mental Status Date Assessment Result Facility 02-15-2022 Mental Status Orientation Oriented x 4 [facility] Clinical Notes 10-02-2009 to 02-15-2022 Patient InstructionsEverardo Alvarado APRN.VIJAYA - 02/11/2022 2:45 PM Ayaka Cartagena APRN.CNP - 11/10/2021 3:43 PM EDT Note Date & Type Note Facility 02-15-2022 Hospital Discharge instructions Patient Education 02/15/2022 13:16:48 Rectal Foreign Body, Removed (Adult) Rectal Foreign Body, Removed (Adult) An object in the rectum is called a foreign body. Objects that are easy to put into the rectum can be very hard to get out again. Trying to remove them can lead to swelling and spasms of the rectal muscles. This can make getting the object out even harder. An object stuck in the rectum can be very painful. It can cause bleeding. It may also puncture the wall of the rectum. This can be very serious. If the object is in the rectum for a time, infection can develop. X-rays or other tests may be done to get a view of the object and where it is. The goal is to remove the object from the rectum without causing further damage. This can often be done safely in the emergency department. Medicine may be given to relax you and prevent pain during removal. After the object is removed, the rectum is examined for signs of injury or infection. Home care Medicine may be prescribed to help relieve pain and swelling. Take all medicine as directed. Antibiotics may be used to help treat or prevent infection. If these are prescribed, take them as directed until they are gone. The following are general care guidelines: If you were given relaxing medicine for the removal, do not drive or operate heavy equipment for 24 hours. Don't put anything into your rectum for at least a week. This allows it to heal. If passing stool is painful, use a laxative or stool softener for a few days. Take these by mouth, instead of using a suppository. If using vibrators or dildos for sex play, choose one made for insertion into the rectum. These have safety features that keep them from getting stuck. Follow-up care Follow up with your healthcare provider, or as advised. If you have damage to the rectum, you may be referred to a specialist. Call 911 Call 911 if any of these occur: Heavy bleeding Swollen, tense, or very painful abdomen Fainting or loss of consciousness Trouble breathing Rapid heart rate When to seek medical advice Call your healthcare provider right away if any of these occur: Fever of 100.4 F (38 C) or higher, or as directed by your healthcare provider Bleeding from the rectum Rectal pain that gets worse Nausea or vomiting 1994-[address] [employer]. [address] [place] [address], [place] [address]. All rights reserved. This information is not intended as a substitute for professional medical care. Always follow your healthcare professional's instructions. Follow Up Care 02/15/2022 12:13:52 With:LYNETTE COBURN DO Address: [address] [place] [address] [place] [id number]- When:2-4 days [facility] Emergency department Discharge summary Discharge Instructions Thank you for allowing [facility] to assist you with your healthcare needs. The following is important discharge information regarding your hospital visit. Diagnosis from Today's Visit Rectal foreign body What to Do Next Instructions from Your Care Team No qualifying data available. Post Acute Orders No qualifying data available. You Need to Schedule the Following Appointments Follow Up with LYNETTE COBURN DO When Within 2-4 days Where: [address] [place] [address] [id number]- Allergies Glutens coconut Medications Please ask your primary doctor or pharmacist before taking any other medication not listed, including over the counter drugs, herbal medications, vitamins and or supplements as they may interact with your home medications. Please take this list to your next doctor s visit. Bring all medications you take, including over the counter medications, herbals and other supplements with you to your doctor s visit. Patients and families are reminded to discard old lists and to update any records with all medication providers or retail pharmacies. Education Materials Rectal Foreign Body, Removed (Adult) An object in the rectum is called a foreign body. Objects that are easy to put into the rectum can be very hard to get out again. Trying to remove them can lead to swelling and spasms of the rectal muscles. This can make getting the object out even harder. An object stuck in the rectum can be very painful. It can cause bleeding. It may also puncture the wall of the rectum. This can be very serious. If the object is in the rectum for a time, infection can develop. X-rays or other tests may be done to get a view of the object and where it is. The goal is to remove the object from the rectum without causing further damage. This can often be done safely in the emergency department. Medicine may be given to relax you and prevent pain during removal. After the object is removed, the rectum is examined for signs of injury or infection. Home care Medicine may be prescribed to help relieve pain and swelling. Take all medicine as directed. Antibiotics may be used to help treat or prevent infection. If these are prescribed, take them as directed until they are gone. The following are general care guidelines: If you were given relaxing medicine for the removal, do not drive or operate heavy equipment for 24 hours. Don't put anything into your rectum for at least a week. This allows it to heal. If passing stool is painful, use a laxative or stool softener for a few days. Take these by mouth, instead of using a suppository. If using vibrators or dildos for sex play, choose one made for insertion into the rectum. These have safety features that keep them from getting stuck. Follow-up care Follow up with your healthcare provider, or as advised. If you have damage to the rectum, you may be referred to a specialist. Call 911 Call 911 if any of these occur: Heavy bleeding Swollen, tense, or very painful abdomen Fainting or loss of consciousness Trouble breathing Rapid heart rate When to seek medical advice Call your healthcare provider right away if any of these occur: Fever of 100.4 F (38 C) or higher, or as directed by your healthcare provider Bleeding from the rectum Rectal pain that gets worse Nausea or vomiting [id number] [employer]. [address] [place] [address], [place] [address]. All rights reserved. This information is not intended as a substitute for professional medical care. Always follow your healthcare professional's instructions. Additional Information VACCINATE! IT SAVES LIVES! Members of the community who have not yet received the COVID-19 vaccine and would like to receive it can visit one of [facility] vaccine clinics. There are many vaccine clinic locations within the [facility]. For locations and available times, please visit [email or web address]. It is important to note that some COVID mobile vaccine clinics are held outdoors and may be canceled in rainy or stormy conditions. To learn more about pediatric vaccinations (ages 5-11), we invite you to visit the [facility] webpage. [email or web address] To learn more about the COVID-19 vaccine, we invite you to visit the [facility] website for a list of frequently asked questions. [email or web address] [email or web address] [facility] Patient Portal Access Instructions: Stay connected with your healthcare team and access your personal medical information anytime with the [facility] Patient Portal. If you would like a full copy of your medical records please contact the [facility] Medical Records Department Monday through Monday between 8a.m. and 4:30p.m. Please follow the directions below to access the portal: 1.Access the email account you provided upon registration to the [facility].2.Look for an invitation email from [facility].3.Open the email and access the invitation link: Accept Invitation to [facility]4.Fill in the required alcocer to create your account. Sign into [email or web address] with your username and password that you created in the above steps to stay up to date. You can then view a summary of results, a summary of your visits, and the ability to download your summaries to your computer or send the information securely to a physician. Remember that your healthcare information is confidential, so carefully consider who you will allow to register on the [facility] Patient Portal for access to your information. You can also access the [facility] Patient Portal on the ViewReple. Simply click on Health Records under Health Data and then click on the SpotOnWay logo. HOW TO SAFELY DISPOSE OF PRESCRIPTION MEDICATIONS Please use one of the following methods to safely dispose of your unused medications. 1.Use a drug disposal kit: the drug disposal pouch allows you to safely discard your old and unused drugs. Ask your nurse to give you one when you are discharged.2.Visit a local take-back location: Many local pharmacies and police departments have programs that collect old and unwanted prescription drugs. Call your local pharmacy or go to http://bit.ly/2S5Te3s to find one close to you.3.Make use of household items: Use cat litter or old coffee grounds to dispose medications if other options are not available. Mix your drugs with these household products, seal them in an airtight container and throw it into the garbage. Call [facility]: [phone] to be sure your drugs can be disposed of in this way. Some medicines may require a different approach.4.Never flush your medications down the toilet. IF YOU HAVE BEEN PRESCRIBED AN OPIOIDS FOR PAIN If you have been prescribed an opioid (such as hydrocodone, oxycodone or morphine), it is critical to understand the possible side effects and risks of opioid pain medications. Even when taken as directed, opioids can have several side effects including: Tolerance, meaning you might need to take more of a medication for the same pain relief. Nausea, vomiting and/or constipation. Sleepiness, dizziness, dry mouth, confusion, depression or itching. Physical dependence, meaning you have withdrawal symptoms when a medication is stopped ? this can develop within a few days. KNOW YOUR RESPONSIBILITIES It is important to know exactly how much and how often to take the opioid pain medications you are prescribed. Never take opioids in higher amounts or more often than prescribed. Do not combine opioids with alcohol or other drugs that cause drowsiness, such as benzodiazepines, also known as benzos, including diazepam and alprazolam, muscle relaxants or sleep aids. Never sell or share prescription opioids. This is illegal. Store opioids in a secure place and out of reach of others (including children, family, friends and visitors). The last page(s) of this document has been signed and retained as a CHART COPY Signatures Patient Education Materials Rectal Foreign Body, Removed (Adult) Medication Leaflets My discharge plan and instructions have been reviewed and explained to me and IISAK RACHEL understand my current condition and have read and understand these discharge instructions. I have received a written copy of the plan/instructions. If I have questions, I am aware that I should contact my doctor. 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 There is a nonobstructive bowel gas pattern. There is no radiopaque foreign body. Soft tissues are unremarkable. IMPRESSION: No radiopaque foreign body. Interpreted by: Charlie Briones MD Preliminary Report By: Charlie Briones MD Electronically signed By Charlie Briones MD Dictated Date: 02/15/2022 12:59:53 PM Prelim Date: 02/15/2022 1:00:43 PM Sign Date: 02/15/2022 1:00:43 PM Ordering Provider: [facility] 02-15-2022 Note ORIGINAL HISTORY: Foreign body COMPARISON: No FINDINGS: There is formed stool and gas in the large bowel. There is a nonobstructive bowel gas pattern. There is no radiopaque foreign body. Soft tissues are unremarkable. IMPRESSION: No radiopaque foreign body. Interpreted by: Charlie Briones MD Preliminary Report By: Charlie Briones MD Electronically signed By Charlie Briones MD Dictated Date: 02/15/2022 12:59:53 PM Prelim Date: 02/15/2022 1:00:43 PM Sign Date: 02/15/2022 1:00:43 PM Ordering Provider: [facility] 02-11-2022 Note HNO ID: [id number] Author: Everardo lAvarado APRN.[employer] Service: ? Author Type: Nurse Practitioner Type: Progress Notes Filed: 02/11/2022 3:08 PM Note Text: Subjective HPI Nontoxic-appearing female presents urgent care chief complaint sore throat ear pain. Duration of symptoms 1 day. Associated symptoms sore throat or ear pain slight nasal congestion. States pain was worse when she arose this morning. Did take Motrin this did help. Did have a low-grade temperature. Nothing greater than 100.4. No known sick contacts. Denies any significant discomfort currently. Denies inability to swallow handling secretions decreased range of motion of neck. History of strep throat this feels similar. Denies any fever body aches chills productive cough chest pain shortness of breath pleuritic pain hemoptysis nausea vomiting abdominal pain change in bowel or bladder habits. Past medical history prescription medication use and allergies reviewed. Denies chance of is not breast-feeding. .Patient presents with: Sore Throat: Sore throat 7/10, bilateral ear pain 6/10 x 1 day PAST MEDICAL HISTORY Diagnosis Date Chlamydia 2013 Dysmenorrhea Endometriosis, site unspecified Endometriosis Gonorrhea 2013 PAST SURGICAL HISTORY Procedure Laterality Date EGD FLEXIBLE FOREIGN BODY REMOVAL 03/08/15 meat UNSPECIFIED ORAL SURGERY PROCEDURE, BY REPORT [place] [facility] ALLERGIES Coconut, Omnicef [Cefdinir], and Gluten MEDICATIONS busPIRone (BUSPAR) 5 mg tablet Take 5 mg by mouth once daily. Drospirenone-Ethinyl Estradiol (JAME, 28,) 3-0.02 mg per tablet Take 1 tablet by mouth once daily. FOR CONTINUOUS USE. FLUoxetine HCl 20 mg tablet Take 20 mg by mouth once daily. Take 40mg daily ALBUTEROL SULFATE ORAL Take by mouth. FAMILY HISTORY Problem Relation Age of Onset Cancer Paternal Grandmother Cancer Paternal Grandfather Alzheimer's Disease Paternal Grandfather Cancer Maternal Grandfather Pancreatic Heart Maternal Grandfather Alzheimer's Disease Maternal Grandfather other (Endometrosis) Mother Aneurysm Father Heart Social History Tobacco Use Smoking status: Former Types: Cigarettes Smokeless tobacco: Never Tobacco comments: now vaping Vaping Use Vaping Use: Some days Substances: Nicotine, Flavoring Substance Use Topics Alcohol use: Yes Alcohol/week: 5.0 - 7.5 standard drinks Types: 2 - 3 Mixed Drinks per week Comment: Occasionally Drug use: No Comment: former BP 118/82 Pulse 110 Temp 37.1 ?C (98.7 ?F) Resp 18 Wt 73.4 kg (161 lb 12.8 oz) LMP 06/14/2021 (Approximate) SpO2 96% BMI 25.34 kg/m? Hr 82 Review of Systems Constitutional: Negative for chills, fever and malaise/fatigue. HENT: Positive for congestion, ear pain and sore throat. Negative for ear discharge and sinus pain. Eyes: Negative for blurred vision, pain, discharge and redness. Respiratory: Negative for cough, hemoptysis, sputum production, shortness of breath, wheezing and stridor. Cardiovascular: Negative for chest pain. Gastrointestinal: Negative for abdominal pain, diarrhea, nausea and vomiting. Musculoskeletal: Negative for myalgias. Skin: Negative for itching and rash. Neurological: Negative for dizziness and headaches. Objective Physical Exam Vitals and nursing note reviewed. Constitutional: General: She is not in acute distress. Appearance: She is not diaphoretic. HENT: Head: Normocephalic and atraumatic. Jaw: No trismus, tenderness or pain on movement. Right Ear: Hearing, tympanic membrane, ear canal and external ear normal. No decreased hearing noted. No drainage, swelling or tenderness. No mastoid tenderness. Tympanic membrane is not perforated, erythematous or bulging. Left Ear: Hearing, tympanic membrane, ear canal and external ear normal. No decreased hearing noted. No drainage, swelling or tenderness. No mastoid tenderness. Tympanic membrane is not perforated, erythematous or bulging. Nose: Congestion present. Mouth/Throat: Lips: [place]. Mouth: Mucous membranes are moist. Pharynx: Oropharynx is clear. Uvula midline. Posterior oropharyngeal erythema present. No pharyngeal swelling, oropharyngeal exudate or uvula swelling. Tonsils: No tonsillar exudate or tonsillar abscesses. 1+ on the right. 1+ on the left. Eyes: General: Right eye: No discharge. Left eye: No discharge. Conjunctiva/sclera: Conjunctivae normal. Pupils: Pupils are equal, round, and reactive to light. Cardiovascular: Rate and Rhythm: Normal rate and regular rhythm. Heart sounds: Normal heart sounds. Pulmonary: Effort: Pulmonary effort is normal. No tachypnea, accessory muscle usage or respiratory distress. Breath sounds: Normal breath sounds. No stridor. No wheezing, rhonchi or rales. Abdominal: Palpations: Abdomen is soft. Tenderness: There is no abdominal tenderness. Musculoskeletal: General: No tenderness. Normal range of motion. (more content not included)... [facility] 02-11-2022 Instructions Everardo Alvarado APRN.[facility] - 02/11/2022 3:02 PM EST [facility] PATIENT INFO PHARYNGITIS OVERVIEW A sore throat (pharyngitis) is a common problem, and usually is caused by a viral or bacterial infection. Sore throat usually resolves on its own without complications in adults, although it is important to know when to seek medical attention. Viruses can cause a sore throat and other upper respiratory infections, such as the common cold. Sore throat caused by a virus is not treated with antibiotics, but instead may be treated with rest, pain medication, and other therapies aimed at relieving symptoms. Strep throat is a particular kind of pharyngitis that is caused by a bacterium known as group A streptococcus (GAS). Strep throat is treated with a course of antibiotics. SORE THROAT SYMPTOMS Viral pharyngitis -- Most people with a sore throat have a virus. The most common viruses are those that cause upper respiratory infections, such as the common cold. Symptoms of a viral infection can include: A runny or congested nose Irritation or redness of the eyes Cough, hoarseness, or soreness in the roof of the mouth Some viruses cause a fever and can make you feel quite ill. Strep throat -- Approximately 10 percent of adults with a sore throat have strep throat. Signs and symptoms of strep throat include the following: Pain in the throat Fever (temperature greater than 100.4 F or 38 C) Enlarged lymph glands in the neck White patches of pus on the side or back of the throat No cough, runny nose, or irritation/redness of the eyes Other infections -- Many other less common but more serious infections can cause a sore throat, including mononucleosis (mono), influenza (the flu), N. gonococcus (gonorrhea), human immunodeficiency virus (HIV), and others. When to seek urgent help -- See your doctor or nurse immediately if you have a sore throat along with any of the following: Difficulty breathing Skin rash Drooling because you cannot swallow Swelling of the neck or tongue Stiff neck or difficulty opening the mouth SORE THROAT DIAGNOSIS Most people with a sore throat get better without treatment. There is no specific treatment for a sore throat caused by usual cold viruses. Is it strep or not? -- A combination of symptoms (fever, enlarged glands in the neck, white patches on your tonsils, and no cough) can help in determining if you have strep. If you have two or more symptoms, a rapid test or throat culture may be done. People with fewer than two symptoms usually do not need testing or treatment for strep throat. Rapid test -- The rapid test determines if there are streptococcus bacteria on a throat swab. The test can be done in a clinician's office and the results are available within a few minutes. The test is accurate in most cases, although a small percentage of tests are falsely negative (the bacteria are present but the test is negative). Throat culture -- A throat culture involves swabbing the throat, sending the swab to a laboratory, and waiting 24 to 48 hours for the results. Throat cultures are slightly more accurate than the rapid test. TREATMENT OF SORE THROAT Sore throat treatment -- Antibiotics do not help throat pain caused by a virus and are not recommended. Sore throat caused by viral infections usually lasts four to five days. During this time, treatments to reduce pain may be helpful. Several therapies can help to relieve throat pain. Pain medication -- You can treat your throat pain with a mild pain reliever such as acetaminophen (Tylenol ) or a non-steroidal anti-inflammatory agent such as ibuprofen or naproxen (Motrin or Aleve ). Oral rinses -- Salt-water gargles are an old stand-by for throat pain. It is not clear that salt water works to relieve pain, but it is unlikely to be harmful. Most recipes suggest 1/4 to 1/2 teaspoon of salt per one cup (8 ounces) of warm water. Sprays -- Sprays containing topical anesthetics (eg, benzocaine, phenol) are available to treat sore throat. However, such sprays are no more effective than sucking on hard candy. Lozenges -- A variety of lozenges (cough drops) are available to treat throat pain or relieve dryness. However, it is not clear that lozenges work any better than other forms of hard candy, which are generally less expensive. Other treatments -- Other treatments that may help with throat pain include sipping warm beverages (eg, honey or lemon tea, chicken soup), cold beverages, or eating cold or frozen desserts (eg, ice cream, popsicles). Alternative therapies -- Health food stores, vitamin outlets, and Internet Web sites offer alternative treatments for relief of sore throat pain. We do not recommend these type of treatments due to the risks of contamination with pesticides/herbicides, inaccurate labeling and dosing information, and a lack of studies showing that these treatments are safe and effective. Strep throat -- Although strep throat typically resolves on its own within two to five days, treatment with antibiotics is recommended for adults whose rapid test or throat culture is positive for strep throat. Penicillin, or an antibiotic related to penicillin, is the treatment of choice for strep throat. It is usually given in pill or liquid form two to four times per day for 10 days. A one time injection of penicillin is also available. People who are allergic to penicillin are given an alternate antibiotic. It is important to finish the entire course of treatment to completely eliminate the infection. If symptoms do not begin to improve or worsen by three days of antibiotic treatment, you should see your doctor or nurse again. Return to work/school -- If you have been diagnosed with strep throat, stay home from work or school until you have completed 24 hours of antibiotics. Within 24 hours of beginning antibiotic treatment, you will feel better and will be less contagious [1]. If you have a sore throat (not diagnosed as strep), you may participate in your usual activities as soon as you feel well. SORE THROAT PREVENTION Hand washing is an essential and highly effective way to prevent the spread of infection. Wet your hands with water and plain soap, and rub them together for 15 to 30 seconds. Pay special attention to the fingernails, between the fingers, and the wrists. Rinse your hands thoroughly, and dry them with a clean towel. Alcohol-based hand rubs are a good alternative for disinfecting hands if a sink is not available. Hand rubs should be spread over the entire surface of hands, fingers, and wrists until dry, and may be used several times. These rubs can be used repeatedly without skin irritation or loss of effectiveness. Hand rubs are available as a liquid or wipe in small, portable sizes that are easy to carry in a pocket or handbag. When a sink is available, visibly soiled hands should be washed with soap and water. Wash your hands after coughing, blowing the nose, or sneezing. While it is not always possible to avoid being near a person who is sick, avoiding touching your eyes, nose, or mouth to prevent the spread of infection. In addition, tissues should be used to cover the mouth when sneezing or coughing. These used tissues should be disposed of promptly. Sneezing/coughing into your sleeve (at the inner elbow) is another way to contain sprays of saliva and secretions and will not contaminate your hand documented in this encounter [facility] 02-11-2022 History of Present illness Narrative Subjective HPI Nontoxic-appearing female presents urgent care chief complaint sore throat ear pain. Duration of symptoms 1 day. Associated symptoms sore throat or ear pain slight nasal congestion. States pain was worse when she arose this morning. Did take Motrin this did help. Did have a low-grade temperature. Nothing greater than 100.4. No known sick contacts. Denies any significant discomfort currently. Denies inability to swallow handling secretions decreased range of motion of neck. History of strep throat this feels similar. Denies any fever body aches chills productive cough chest pain shortness of breath pleuritic pain hemoptysis nausea vomiting abdominal pain change in bowel or bladder habits. Past medical history prescription medication use and allergies reviewed. Denies chance of is not breast-feeding. .Patient presents with: Sore Throat: Sore throat 7/10, bilateral ear pain 6/10 x 1 day PAST MEDICAL HISTORY Diagnosis Date Chlamydia 2013 Dysmenorrhea Endometriosis, site unspecified Endometriosis Gonorrhea 2013 PAST SURGICAL HISTORY Procedure Laterality Date EGD FLEXIBLE FOREIGN BODY REMOVAL 03/08/15 meat UNSPECIFIED ORAL SURGERY PROCEDURE, BY REPORT [place] [facility] ALLERGIES Coconut, Omnicef [Cefdinir], and Gluten MEDICATIONS busPIRone (BUSPAR) 5 mg tablet Take 5 mg by mouth once daily. Drospirenone-Ethinyl Estradiol (JAME, 28,) 3-0.02 mg per tablet Take 1 tablet by mouth once daily. FOR CONTINUOUS USE. FLUoxetine HCl 20 mg tablet Take 20 mg by mouth once daily. Take 40mg daily ALBUTEROL SULFATE ORAL Take by mouth. FAMILY HISTORY Problem Relation Age of Onset Cancer Paternal Grandmother Cancer Paternal Grandfather Alzheimer's Disease Paternal Grandfather Cancer Maternal Grandfather Pancreatic Heart Maternal Grandfather Alzheimer's Disease Maternal Grandfather other (Endometrosis) Mother Aneurysm Father Heart Social History Tobacco Use Smoking status: Former Types: Cigarettes Smokeless tobacco: Never Tobacco comments: now vaping Vaping Use Vaping Use: Some days Substances: Nicotine, Flavoring Substance Use Topics Alcohol use: Yes Alcohol/week: 5.0 - 7.5 standard drinks Types: 2 - 3 Mixed Drinks per week Comment: Occasionally Drug use: No Comment: former BP 118/82 Pulse 110 Temp 37.1 C (98.7 F) Resp 18 Wt 73.4 kg (161 lb 12.8 oz) LMP 06/14/2021 (Approximate) SpO2 96% BMI 25.34 kg/m Hr 82 Review of Systems Constitutional: Negative for chills, fever and malaise/fatigue. HENT: Positive for congestion, ear pain and sore throat. Negative for ear discharge and sinus pain. Eyes: Negative for blurred vision, pain, discharge and redness. Respiratory: Negative for cough, hemoptysis, sputum production, shortness of breath, wheezing and stridor. Cardiovascular: Negative for chest pain. Gastrointestinal: Negative for abdominal pain, diarrhea, nausea and vomiting. Musculoskeletal: Negative for myalgias. Skin: Negative for itching and rash. Neurological: Negative for dizziness and headaches. Objective Physical Exam Vitals and nursing note reviewed. Constitutional: General: She is not in acute distress. Appearance: She is not diaphoretic. HENT: Head: Normocephalic and atraumatic. Jaw: No trismus, tenderness or pain on movement. Right Ear: Hearing, tympanic membrane, ear canal and external ear normal. No decreased hearing noted. No drainage, swelling or tenderness. No mastoid tenderness. Tympanic membrane is not perforated, erythematous or bulging. Left Ear: Hearing, tympanic membrane, ear canal and external ear normal. No decreased hearing noted. No drainage, swelling or tenderness. No mastoid tenderness. Tympanic membrane is not perforated, erythematous or bulging. Nose: Congestion present. Mouth/Throat: Lips: [place]. Mouth: Mucous membranes are moist. Pharynx: Oropharynx is clear. Uvula midline. Posterior oropharyngeal erythema present. No pharyngeal swelling, oropharyngeal exudate or uvula swelling. Tonsils: No tonsillar exudate or tonsillar abscesses. 1+ on the right. 1+ on the left. Eyes: General: Right eye: No discharge. Left eye: No discharge. Conjunctiva/sclera: Conjunctivae normal. Pupils: Pupils are equal, round, and reactive to light. Cardiovascular: Rate and Rhythm: Normal rate and regular rhythm. Heart sounds: Normal heart sounds. Pulmonary: Effort: Pulmonary effort is normal. No tachypnea, accessory muscle usage or respiratory distress. Breath sounds: Normal breath sounds. No stridor. No wheezing, rhonchi or rales. Abdominal: Palpations: Abdomen is soft. Tenderness: There is no abdominal tenderness. Musculoskeletal: General: No tenderness. Normal range of motion. Cervical back: Normal range of motion and neck supple. No rigidity or tenderness. No pain with movement. Normal range of motion. Lymphadenopathy: Head: Right side of head: No submental, submandibular, tonsillar, preauricular, posterior auricular or occipital adenopathy. Left side of head: No submental, submandibular, tonsillar, preauricular, posterior auricular or occipital adenopathy. Cervical: Cervical adenopathy present. Right cervical: Superficial cervical adenopathy present. No posterior cervical adenopathy. Left cervical: Superficial cervical adenopathy present. No posterior cervical adenopathy. Skin: General: Skin is warm and dry. Findings: No rash. Neurological: Mental Status: She is alert and oriented to person, place, and time. ASSESSMENT/PLAN: 1. Pharyngitis, unspecified etiology - ICD9: 462, ICD10: J02.9 - STREP A MOLECULAR (POC) Strep test negative. Suspicious of viral cause of pharyngitis. No cough body aches or chills. Patient was educated on supportive therapies. Patient will follow up with primary care provider as needed. Patient was instructed to immediately proceed to emergency room for any new, worsening, or symptoms lasting longer than anticipated. The patient's clinical presentation is otherwise unremarkable at this time. Based on exam and clinical finding, the patient is stable for discharge. Plan of care was discussed with patient. Patient verbalizes understanding and agrees to plan of care. This note was generated using [employer] software. It may contain errors in wording, punctuation, or spelling. Everardo Alvarado APRN.[facility] documented in this encounter [facility] 11-10-2021 Note HNO ID: [id number] Author: Brunilda Cartagena APRN.[facility] Service: ? Author Type: Nurse Practitioner Type: Progress Notes Filed: 11/10/2021 4:23 PM Note Text: Advisory Application Developer offered: Patient declines. Aries is a 26 year old who presents for an annual gynecologic exam with complaints, amenorrhea . One month ago, ended bad relationship and moved back with mother after living with BF for 6 months with a really stressful relationship. Affected mental health. Menses: cycles every 28 days and 4 days of light-moderate flow. No menses for past 4-5 months no missed pills. Several home UPT negative. Contraception: oral contraceptives [employer] history: endometriosis HPV vaccine: Yes Last Pap: 2019 normal HPV: n/a History of abnormal pap: No Last mammogram: never Sexually active: No Last sexual encounter 2 months ago No bleeding or pain with intercourse. Documentation from previous visit of 10/21/2020 was copied and pasted, documentation has been reviewed and edited as necessary for today's visit. 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: Sexual Activity: Not Currently; Male Contraception: Pill PAST MEDICAL HISTORY Diagnosis Date Chlamydia 2013 Dysmenorrhea Endometriosis, site unspecified Endometriosis Gonorrhea 2013 PAST SURGICAL HISTORY Procedure Laterality Date EGD W/REM FB STOMACH/DUOD 03/08/15 meat UNSPECIFIED ORAL SURGERY PROCEDURE, BY REPORT [place] [facility] FAMILY HISTORY Problem Relation Age of Onset Cancer Paternal Grandmother Cancer Paternal Grandfather Alzheimer's Disease Paternal Grandfather Cancer Maternal Grandfather Pancreatic Heart Maternal Grandfather Alzheimer's Disease Maternal Grandfather other (Endometrosis) Mother Aneurysm Father Heart SOCIAL HISTORY Social History Tobacco Use Smoking status: Former Smokeless tobacco: Never Tobacco comments: now vaping Vaping Use Vaping Use: current everyday user Substances: Nicotine, Flavoring Substance Use Topics Alcohol use: Yes Alcohol/week: 5.0 - 7.5 standard drinks Types: 2 - 3 Mixed Drinks per week Comment: Occasionally Drug use: No Comment: former REVIEW OF SYSTEMS Abdomen: No abdominal pain, nausea, vomiting, diarrhea, or constipation. No bloating, early satiety, indigestion, or increased flatulence. Bladder: No dysuria, gross hematuria, urinary frequency, urinary urgency, or incontinence. Breast: No breast lumps, nipple d/c, overlying skin changes, redness or skin retraction. Allergies and current medication updated:Yes EXAM: BP 126/76 Ht 5' 7 (1.70m) Wt 166 lb (75.3kg) LMP 06/14/2021 BMI 25.99 kg/(m2). GENERAL: pleasant, female in no apparent distress HEENT: Normocephalic, atraumatic, mucus membranes moist, and no lesions NECK: Supple, full range of motion, no adenopathy, and thyroid normal DERMATOLOGY: Normal, without lesions, non-icteric, and non-hirsute BREAST: soft, non-tender, symmetric, no dominant mass, normal nipple-areolar complex, no lymphadenopathy, and no nipple discharge CHEST: Normal inspiratory effort ABDOMEN: soft, non-tender, and no masses PELVIC: external genitalia normal, normal Bartholin's glands, urethra, [place]'s glands, no vulvar lesions, no cervical lesions, good vaginal support, pale yellow-white discharge present, normal appearing perineal body and perianal region. Cervix beefy in color BIMANUAL: uterus normal size, shape and consistency, no adnexal masses, and non-tender NO CMT RECTOVAGINAL: deferred. NEURO: alert and oriented x3,exam grossly non-focal EXTREMITIES: normal ASSESSMENT/PLAN: 1) Health maintenance: Pap/HPV up to date. Nutrition, exercise and routine health maintenance exams reviewed. Smoking cessation: Benefits of smoking cessation reviewed. Patient encouraged to avoid smoking. HPV vaccine: completed series 2. 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 Vaginal discharge - ICD9: 623.5, ICD10: N89.8 - GC/CHLAMYDIA DNA DET - VICKY / TRICHOMONAS AMPLIFICATION - BACTERIAL VAGINOSIS AMPLIFICATION 4) Contraception: combined hormonal contraceptives. Contraceptive options reviewed and information provided. 5) STD screening: Accepted STD check. 6) Follow up one year or sooner as needed Brunilda Cartagena APRN.[facility] 11-10-2021 History of Present illness Narrative Advisory Application Developer offered: Patient declines. Aries is a 26 year old who presents for an annual gynecologic exam with complaints, amenorrhea . One month ago, ended bad relationship and moved back with mother after living with BF for 6 months with a really stressful relationship. Affected mental health. Menses: cycles every 28 days and 4 days of light-moderate flow. No menses for past 4-5 months no missed pills. Several home UPT negative. Contraception: oral contraceptives [employer] history: endometriosis HPV vaccine: Yes Last Pap: 2019 normal HPV: n/a History of abnormal pap: No Last mammogram: never Sexually active: No Last sexual encounter 2 months ago No bleeding or pain with intercourse. Documentation from previous visit of 10/21/2020 was copied and pasted, documentation has been reviewed and edited as necessary for today's visit. 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: Sexual Activity: Not Currently; Male Contraception: Pill PAST MEDICAL HISTORY Diagnosis Date Chlamydia 2013 Dysmenorrhea Endometriosis, site unspecified Endometriosis Gonorrhea 2013 PAST SURGICAL HISTORY Procedure Laterality Date EGD W/REM FB STOMACH/DUOD 03/08/15 meat UNSPECIFIED ORAL SURGERY PROCEDURE, BY REPORT [employer] [place] [facility] FAMILY HISTORY Problem Relation Age of Onset Cancer Paternal Grandmother Cancer Paternal Grandfather Alzheimer's Disease Paternal Grandfather Cancer Maternal Grandfather Pancreatic Heart Maternal Grandfather Alzheimer's Disease Maternal Grandfather other (Endometrosis) Mother Aneurysm Father Heart SOCIAL HISTORY Social History Tobacco Use Smoking status: Former Smokeless tobacco: Never Tobacco comments: now vaping Vaping Use Vaping Use: current everyday user Substances: Nicotine, Flavoring Substance Use Topics Alcohol use: Yes Alcohol/week: 5.0 - 7.5 standard drinks Types: 2 - 3 Mixed Drinks per week Comment: Occasionally Drug use: No Comment: former REVIEW OF SYSTEMS Abdomen: No abdominal pain, nausea, vomiting, diarrhea, or constipation. No bloating, early satiety, indigestion, or increased flatulence. Bladder: No dysuria, gross hematuria, urinary frequency, urinary urgency, or incontinence. Breast: No breast lumps, nipple d/c, overlying skin changes, redness or skin retraction. Allergies and current medication updated:Yes EXAM: BP 126/76 Ht 5' 7 (1.70m) Wt 166 lb (75.3kg) LMP 06/14/2021 BMI 25.99 kg/(m^2). GENERAL: pleasant, female in no apparent distress HEENT: Normocephalic, atraumatic, mucus membranes moist, and no lesions NECK: Supple, full range of motion, no adenopathy, and thyroid normal DERMATOLOGY: Normal, without lesions, non-icteric, and non-hirsute BREAST: soft, non-tender, symmetric, no dominant mass, normal nipple-areolar complex, no lymphadenopathy, and no nipple discharge CHEST: Normal inspiratory effort ABDOMEN: soft, non-tender, and no masses PELVIC: external genitalia normal, normal Bartholin's glands, urethra, [place]'s glands, no vulvar lesions, no cervical lesions, good vaginal support, pale yellow-white discharge present, normal appearing perineal body and perianal region. Cervix beefy in color BIMANUAL: uterus normal size, shape and consistency, no adnexal masses, and non-tender NO CMT RECTOVAGINAL: deferred. NEURO: alert and oriented x3,exam grossly non-focal EXTREMITIES: normal ASSESSMENT/PLAN: 1) Health maintenance: Pap/HPV up to date. Nutrition, exercise and routine health maintenance exams reviewed. Smoking cessation: Benefits of smoking cessation reviewed. Patient encouraged to avoid smoking. HPV vaccine: completed series 2. 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 Vaginal discharge - ICD9: 623.5, ICD10: N89.8 - GC/CHLAMYDIA DNA DET - VICKY / TRICHOMONAS AMPLIFICATION - BACTERIAL VAGINOSIS AMPLIFICATION 4) Contraception: combined hormonal contraceptives. Contraceptive options reviewed and information provided. 5) STD screening: Accepted STD check. 6) Follow up one year or sooner as needed Brunilda Cartagena APRN.VIJAYA documented in this encounter [facility] documented as of this encounter (statuses as of 11/10/2021) [facility]08-13-2010 History of Past illness Narrative* Problem Noted Date Resolved Date Sprain of foot, unspecified site 10/02/2009 07/30/2015 Congenital pes planus 10/02/2009 07/30/2015 Closed fracture of middle or proximal phalanx or phalanges of hand 01/27/2009 07/30/2015 documented as of this encounter (statuses as of 02/13/2022) [facility] No data available for this section [facility] Evaluation note* Diagnosis Encounter for gynecological examination with abnormal finding- Primary Routine gynecological examination Screening examination for STD (sexually transmitted disease) Screening examination for venereal disease Secondary amenorrhea Absence of menstruation Surveillance for control, oral contraceptives Surveillance of previously prescribed contraceptive pill Vaginal discharge Leukorrhea, not specified as infective Screen for STD (sexually transmitted disease) Screening examination for venereal disease documented in this encounter [facility] Diagnosis Pharyngitis, unspecified etiology- Primary documented in this encounter [facility] Summary Purpose Family History No Family History Records FoundNo Family History Records Found Advance Directives No Advanced Directives Records FoundNo Advanced Directives Records Found Additional Source Comments Source Comments (unrecognize d section and content) In the event this informatio n is protected by the Federal Confidentiality of Alcohol and Drug Abuse Patient Records regulations: The Federal rules restrict any use of the information to criminally investigate or prosecute any alcohol or drug abuse patient.[facility] the event this information is protected by the Federal Confidentiality of Alcohol and Drug Abuse Patient Records regulations: The Federal rules restrict any use of the information to criminally investigate or prosecute any alcohol or drug abuse patient.[facility] Care Teams (unrecognized sec tion and content) Tailing Machine Operator Relationship Specialty Start Date End Date Melvin Langley MD PCP - General 02/03/09 Reason for Visit (unrecogniz ed section and content) INFORMATION SOURCE (unrecogn ized section and content) DATE CREATED AUTHOR AUTHOR'S ORGANIZ ATION 05/23/2022 [facility]) Care Team (unrecognized sect ion and content) Care Team Personnel Name: LYNETTE COBURN DO Member Role: Primary Care Physician Address: Address: [address] [place] [address] [place] [address]- Name: BLAKE PLEITEZ DO Position: Resident Member Role: Resident Address: Address: [address] [facility] [place] [address]- Name: VERONICA Nathan Position: ED RN Member Role: ED RN Name: TAI MCGHEE MD Position: ED Physician Member Role: ED Physician Address: Address: [facility] [address] [place] [address]- US FOR RECORDS PERTAINING TO PATIENTS WHO ARE OR HAVE BEEN ENROLLED IN A CHEMICAL DEPENDENCY/SUBSTANCEABUSE PROGRAM, SOME INFORMATION MAY BE OMITTED. This clinical summary was aggregated from multiple sources. Caution should be exercised in using it in the provision of clinical care. This summary normalizes information from multiple sources, and as a consequence, information in this document may materially change the coding, format and clinical context of patient data. In addition, data may be omitted in some cases. CLINICAL DECISIONS SHOULD BE BASED ON THE PRIMARY CLINICAL RECORDS. [facility]. provides no warranty or guarantee of the accuracy or completeness of information in this document.
== END | disposition home or self-care (01) ==
PROVIDERS: PCP Family Medicine; Referring Provider Obstetrics & Gynecology; Visit Provider Obstetrics & Gynecology
DX: Z34.00 Encounter for supervision of normal first pregnancy, unspecified trimester (principal); Z3A.00 Weeks of gestation of pregnancy not specified
CPT/HCPCS: 76805; 76817

== ENCOUNTER → 2023-04-11 | Outpatient (CLI) | payer OTHER, SELFPAY ==
--- OUTSIDE RECORDS SUMMARY | 2023-03-23 09:06 | XMS RPT_ITS | CCD ---
Author Name Unknown Address [address] [place] [address] [place] [address] Organization [facility] Care Team Providers Care Police District Switchboard Operator Name Role Phone Melvin Langley MD Primary Care Provider 1( [phone] MELVIN LANGLEY Primary Care Unavailable BRUNILDA CARTAGENA Attending Unavailable MELVIN LANGLEY Primary Care Unavailable BRUNILDA CARTAGENA Referring Unavailable MELVIN LANGLEY Primary Care Unavailable DR LYNETTE COBURN DO Primary Care Physician TAI MCGHEE MD Attending Unavailable DR LYNETTE COBURN DO Primary Care Unavailable TAI MCGHEE MD Attending Unavailable DR LYNETTE COBUNR DO Primary Care Unavailable Allergies Allergy Classification Reported Allergen(s) Allergy Type Date of Onset Reaction(s) Facility (3 sources) cefdinir; Translations: [CEFDINIR] Drug Allergy 03-29-2011 GI Upset [facility] Work Phone: (4 sources) Coconut extract; Translations: [COCONUT] Drug Allergy 09-11-2017 Hives [facility] (3 sources) Wheat gluten extract; Translations: [GLUTEN] Drug Allergy 10-21-2020 Rash, GI Upset [facility] (1 source) Gluten Food allergy [facility] Medications Completed/Discontinued Medications Medication Drug Class(es) Dates [...] Body temperature 98.24 [degF] TAI MCGHEE MD [facility] 02-15-2022 12:15-0500 Body weight 71.5 kg TAI MCGHEE MD [facility] 02-15-2022 12:15-0500 Diastolic Blood Pressure Non-Invasive 76 1 TAI MCGHEE MD [facility] 02-15-2022 12:15-0500 Heart rate 130 /min TAI MCGHEE MD [facility] 02-15-2022 12:15-0500 Respiratory rate 16 /min TAI MCGHEE MD [facility] 02-15-2022 12:15-0500 Systolic Blood Pressure Non-Invasive 158 1 TAI MCGHEE MD [facility] 02-11-2022 14:44-0500 Body temperature 98.71 [degF] Everardo Alvarado APRN.CNP Work Phone: [facility] 02-11-2022 14:44-0500 Body weight 73.39 kg Everardo Alvarado APRN.CNP Work Phone: [facility] 02-11-2022 14:44-0500 Diastolic blood pressure 82 mm[Hg] Everardo Robertleearnestine BEEF CATTLE FARM WORKER.POP SINGER Work Phone: [facility] 02-11-2022 14:44-0500 Heart rate 110 /min Everardo Stewardearnestine BEEF CATTLE FARM WORKER.POP SINGER Work Phone: [facility] 02-11-2022 14:44-0500 Respiratory rate 18 /min Everardo Stewardearnestine BEEF CATTLE FARM WORKER.POP SINGER Work Phone: [facility] 02-11-2022 14:44-0500 SaO2% (BldA) [Mass fraction] 96 % Everardo Stewardearnestine BEEF CATTLE FARM WORKER.POP SINGER Work Phone: [facility] 02-11-2022 14:44-0500 Systolic blood pressure 118 mm[Hg] Everardonamrata Jonesemmyearnestine BEEF CATTLE FARM WORKER.POP SINGER Work Phone: [facility] 11-10-2021 15:48-0400 Body height 170.2 cm Brunilda Cartagena BEEF CATTLE FARM WORKER.POP SINGER Work Phone: [facility] 11-10-2021 15:48-0400 Body weight 75.3 kg Brunilda Cartagena BEEF CATTLE FARM WORKER.POP SINGER Work Phone: [facility] 11-10-2021 15:48-0400 Diastolic blood pressure 76 mm[Hg] Brunilda Cartagena BEEF CATTLE FARM WORKER.POP SINGER Work Phone: [facility] 11-10-2021 15:48-0400 Systolic blood pressure 126 mm[Hg] Brunilda Cartagena BEEF CATTLE FARM WORKER.POP SINGER Work Phone: [facility] Encounters Encounter Date Encounter Type Care Provider Facility Start: 02-15-2022 End: 02-15-2022 Emergency department patient visit TAI MCGHEE MD Facility:B Start: 02-15-2022 End: 02-15-2022 Emergency department patient visit TAI MCGHEE MD [facility] Start: 02-11-2022 End: 02-11-2022 ambulatory MELVIN LANGLEY Facility:[facility] Start: 02-11-2022 End: 02-11-2022 Office outpatient visit 15 minutes Everardo Alvarado APRN.CNP Work Phone: [facility] Procedures Date Procedure Procedure Detail Performing Clinician Start: 02-11-2022 STREP A MOLECULAR (POC) Everardo Alvarado APRN.CNP Work Phone: Plan of Treatment Date Care Activity Detail Author Start: 09-16-2022 PAP TESTING PAP TESTING [facility] Start: 11-10-2021 End: 01-10-2022 Choriogonadotropin.beta subunit [Units/volume] in Serum or Plasma [facility] Work Phone: Immunizations Immunization Date Immunization Notes Care Provider Emeli gonzalez 05-19-2009 human papilloma viru s vaccine, quadrivalent Brunilda Cartagena APRN.POP SINGER Work Phone: [facility] Work Phone: 12-23-2008 human papilloma viru s vaccine, quadrivalent Brunilda Cartagena RADHA.POP SINGER Work Phone: [facility] Work Phone: 10-16-2008 human papilloma viru s vaccine, quadrivalent Brunilda Cartagena BEEF CATTLE FARM WORKER.POP SINGER Work Phone: [facility] Work Phone: Payers Date Payer Category Payer Unknown [id number] 2021 Medicaid MEDICAID [facility] MEDICAID [id number] 2021-Present [phone] [address] [place] [address] Medicaid [id number] 2021 Medicaid [id number] 1995 Unknown [id number] 1995 Unknown [id number] Social History Date Type Detail Facility Start: 11-10-2021 Tobacco smoking stat us NHIS Ex-smoker [facility] Work Phone: History of tobacco use Current smoker [facility] Work Phone: History of tobacco use Cigarette Smoker C [facility] Work Phone: Start: 11-10-2021 Tobacco use and exposure Smokeless tobacco non-user [facility] Work Phone: Start: 11-10-2021 End: 02-11-2022 Alcohol intake Current drinker of alcohol (finding) [facility] Start: 09-17-2019 History SDOH Alcohol Frequency 2 [facility] Start: 09-17-2019 History SDOH Alcohol Binge 1 [facility] Start: 09-05-2016 History SDOH Alcohol Comment Occasionally [facility] Start: 09-17-2019 History SDOH Social Connections Phone 3 [facility] Start: 09-17-2019 History SDOH Social Connections Living 7 [facility] Start: 09-17-2019 History SDOH Physica l Activity DPW 4 [facility] Start: 09-17-2019 History SDOH Physica l Activity MPS 6 [facility] Start: 11-10-2021 Tobacco Comment [facility] Start: 1995 Sex Assigned At Not on file C [facility] Tobacco smoking status No Smokin g Status Entered [facility] Sex Assigned At Female [facility] Functional Status Date Assessment Result Facility 02-15-2022 Functional Status Standard Safet y ID band on, Call device within reach, Bed in low position, Wheels locked, Upper/Half-Length side-rails up, Bedside Cart Locked, Safety level maintained [facility] Mental Status Date Assessment Result Facility 02-15-2022 Mental Status Orientation Oriented x [facility] Clinical Notes 10-02-2009 to 02-15-2022 Patient InstructionsEverardo [...] pain that gets worse Nausea or vomiting [id number] [employer] [facility]. [address] [place] [address], [place] [address]. All rights reserved. This information is not intended as a substitute for professional medical care. Always follow your healthcare professional's instructions. Follow Up Care 02/15/2022 12:13:52 With:LYNETTE COBURN DO Address: [address] [place] [address] [place] [id number]- When:2-4 days [facility] Emergency department Discharge summary Discharge Instructions Thank you for allowing [facility] to assist you with your healthcare needs. The following is important discharge information regarding your hospital visit. Diagnosis from Today's Visit Rectal foreign body What to Do Next Instructions from Your Care Team No qualifying data available. Post Acute Orders No qualifying data available. You Need to Schedule the Following Appointments Follow Up with LYNETTE COBURN DO When Within 2-4 days Where: [address] [place] [id number]- Allergies Glutens coconut Medications Please ask your [...] pain that gets worse Nausea or vomiting [phone] [employer] [facility]. [address] [address], [place] [address]. All rights reserved. This information is not intended as a substitute for professional medical care. Always follow your healthcare professional's instructions. Additional Information VACCINATE! IT SAVES LIVES! Members of the community who have not yet received the COVID-19 vaccine and would like to receive it can visit one of [facility] vaccine clinics. There are many vaccine clinic locations within the [facility]. For locations and available times, please visit [email or web address]. It is important to note that some COVID mobile vaccine clinics are held outdoors and may be canceled in rainy or stormy conditions. To learn more about pediatric vaccinations (ages 5-11), we invite you to visit the [facility] webpage. [email or web address] To learn more about the COVID-19 vaccine, we invite you to visit the [facility] website for a list of frequently asked questions. [email or web address] [email or web address] [facility] Patient Portal Access Instructions: Stay connected with your healthcare team and access your personal medical information anytime with the [facility] Patient Portal. If you would like a full copy of your medical records please contact the [facility] Medical Records Department Monday through Monday between 8a.m. and 4:30p.m. Please follow the directions below to access the portal: 1.Access the email account you provided upon registration to the [facility].2.Look for an invitation email from [facility].3.Open the email and access the invitation link: Accept Invitation to [facility]4.Fill in the required alcocer to create your account. Sign into [email or web address] with your username and password that you [...] you will allow to register on the [facility] Patient Portal for access to your information. You can also access the [facility] Patient Portal on the [employer]. Simply click on Health Records under Health Data and then click on the [employer] logo. HOW TO SAFELY DISPOSE OF PRESCRIPTION [...] Call your local pharmacy or go to http://bit.ly/0I8Wl7a to find one close to you.3.Make use of household items: Use cat litter or old coffee grounds to dispose medications if other options are not available. Mix your drugs with these household products, seal them in an airtight container and throw it into the garbage. Call [facility]: [phone] to be sure your drugs can be [...] aware that I should contact my doctor. 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 Author Type: Nurse Practitioner Type: [...] meat UNSPECIFIED ORAL SURGERY PROCEDURE, BY REPORT [facility] ALLERGIES Coconut, Omnicef [Cefdinir], and Gluten [...] or bulging. Nose: Congestion present. Mouth/Throat: Lips: [place]. Mouth: Mucous membranes are moist. Pharynx: Oropharynx [...] range of motion. (more content not included)... [facility] 02-11-2022 Instructions Everardo Alvarado APRN.[facility] - 02/11/2022 3:02 PM EST [facility] [...] contaminate your hand documented in this encounter [facility] 02-11-2022 History of Present illness Narrative [...] meat UNSPECIFIED ORAL SURGERY PROCEDURE, BY REPORT [facility] ALL[facility] Coconut, Omnicef [Cefdinir], and Gluten [...] or bulging. Nose: Congestion present. Mouth/Throat: Lips: [place]. Mouth: Mucous membranes are moist. Pharynx: Oropharynx [...] of care. This note was generated using [employer] software. It may contain errors in wording, punctuation, or spelling. Everardo Alvarado APRN.VIJAYA documented in this encounter [facility] 11-10-2021 Note HNO ID: [id number] Author: Brunilda Cartagena APRN.VIJAYA Service: ? Author Type: Nurse Practitioner Type: Progress Notes Filed: 11/10/2021 4:23 PM Note Text: Bee Producer offered: Patient declines. Aries is a 26 [...] Several home UPT negative. Contraception: oral contraceptives Policy Adviser history: endometriosis HPV vaccine: Yes Last Pap: [...] L0 SAB0 IAB0 Ectopic0 Multiple0 Live Births0 Policy Adviser History LMP: 10/10/2020 (Exact Date), Having periods Age at Menarche: Age at First : Age at Menopause: Policy Adviser History Comments: Sexual Activity: Not Currently; Male Contraception: Pill PAST MEDICAL HISTORY Diagnosis Date Chlamydia 2013 Dysmenorrhea Endometriosis, site unspecified Endometriosis Gonorrhea 2013 PAST SURGICAL HISTORY Procedure Laterality Date EGD W/REM FB STOMACH/DUOD 03/08/15 meat UNSPECIFIED ORAL SURGERY PROCEDURE, BY REPORT [place] [facility] FAMILY HISTORY Problem Relation Age of [...] external genitalia normal, normal [place]olin's glands, urethra, [place]'s glands, no vulvar lesions, no cervical lesions, [...] year or sooner as needed Brunilda Cartagena APRN.[facility] 11-10-2021 History of Present illness Narrative Bee Producer offered: Patient declines. Aries is a 26 [...] Several home UPT negative. Contraception: oral contraceptives Policy Adviser history: endometriosis HPV vaccine: Yes Last Pap: [...] L0 SAB0 IAB0 Ectopic0 Multiple0 Live Births0 Policy Adviser History LMP: 10/10/2020 (Exact Date), Having periods Age at Menarche: Age at First : Age at Menopause: Policy Adviser History Comments: Sexual Activity: Not Currently; Male Contraception: Pill PAST MEDICAL HISTORY Diagnosis Date Chlamydia 2013 Dysmenorrhea Endometriosis, site unspecified Endometriosis Gonorrhea 2013 PAST SURGICAL HISTORY Procedure Laterality Date EGD W/REM FB STOMACH/DUOD 03/08/15 meat UNSPECIFIED ORAL SURGERY PROCEDURE, BY REPORT [place] [facility] FAMILY HISTORY Problem Relation Age of [...] external genitalia normal, normal Bartholin's glands, urethra, [place]'s glands, no vulvar lesions, no cervical lesions, [...] Brunilda Cartagena APRN.VIJAYA documented in this encounter [facility] documented as of this encounter (statuses as of 11/10/2021) [facility]08-13-2010 History of Past illness Narrative* Problem Noted Date Resolved Date Sprain of foot, unspecified site 10/02/2009 07/30/2015 Congenital pes planus 10/02/2009 07/30/2015 Closed fracture of middle or proximal phalanx or phalanges of hand 01/27/2009 07/30/2015 documented as of this encounter (statuses as of 02/13/2022) [facility] No data available for this section [facility] Evaluation note* Diagnosis Encounter for gynecological examination [...] for venereal disease [facility] Diagnosis Pharyngitis, unspecified etiology- Primary documented in this encounter [facility] Summary Purpose Family History No Family [...] or prosecute any alcohol or drug abuse patient.[facility] the event this information is protected by the Federal Confidentiality of Alcohol and Drug Abuse Patient Records regulations: The Federal rules restrict any use of the information to criminally investigate or prosecute any alcohol or drug abuse patient.[facility] Care Teams (unrecognized sec tion and content) Police District Switchboard Operator Relationship Specialty Start Date End Date Melvin Langley MD PCP - General 02/03/09 Reason for Visit (unrecogniz ed section and content) INFORMATION SOURCE (unrecogn ized section and content) DATE CREATED AUTHOR AUTHOR'S ORGANIZ ATION 05/23/2022 [facility] Care Team (unrecognized sect ion and content) Care Team Personnel Name: LYNETTE COBURN DO Member Role: Primary Care Physician Address: Address: [address] [place] [address] [place] [address]- Name: BLAKE PLEITEZ DO Position: Resident Member Role: Resident Address: Address: [address] [facility] [place] [address]- Name: VERONICA Nathan Position: ED RN Member Role: ED RN Name: TAI MCGHEE MD Position: ED Physician Member Role: ED Physician Address: Address: [facility] [address] [place] [address]- US FOR RECORDS PERTAINING TO PATIENTS WHO [...] BE BASED ON THE PRIMARY CLINICAL RECORDS. [facility]. provides no warranty or guarantee of the accuracy or completeness of information in this document.
[2023-04-11 09:55] LABS: Absolute Lymphocyte Count 1.74 X10^3/uL (0.83-4.51); Absolute Neutrophil Count 9.3 X10^3/uL (2.0-7.7); Basophil# 0.08 X10^3/uL; Basophil% 0.6 % (0-1); Eosinophil# 0.34 X10^3/uL; Eosinophils% 2.8 % (0-5); Hematocrit 36.4 % (37-47); Hemoglobin 12.1 g/dL (12.0-15.0); Lymphocyte # 1.74 X10^3/ul (0.83-4.51); Lymphocyte % 14.1 % (19-41); Mean Corp Hgb Conc 33.2 g/dL (32-36); Mean Corpuscular Hgb 30.9 pg (27.0-32.0); Mean Corpuscular Volume 93.1 fL (81-99); Mean Platelet Vol. 9.2 fl (6.2-12.0); Monocyte# 0.78 X10^3/uL; Monocyte% 6.3 % (0-10); NRBC Flagged by Analyzer 0 % (0-5); Neutrophil # 9.25 X10^3/uL (2.7-7.7); Platelet Count 309 K/mm3 (150-450); RBC Distribution Width CV 12.4 % (11.6-14.6); RBC Distribution Width SD 41.9 fl (35.1-43.9); Red Blood Count 3.91 M/mm3 (4.2-5.4); White Blood Count 12.3 K/mm3 (4.4-11.0)
[2023-04-11 10:08] LABS: Glucose Challenge Gest 1H 50g 121 mg/dL (70-140)
[2023-04-11 10:42] LABS: HIV - WCH Non-Reactive (Nonreactive); Syphilis Antibodies Non-reactive
== END | disposition home or self-care (01) ==
LOC: PAVLAB 08:38
PROVIDERS: PCP Family Medicine; Referring Provider Obstetrics & Gynecology; Visit Provider Obstetrics & Gynecology
DX: Z34.92 Encounter for supervision of normal pregnancy, unspecified, second trimester (principal); Z3A.22 22 weeks gestation of pregnancy
CPT/HCPCS: 36415; 82950; 85025; 86703; 86780

== ENCOUNTER 2023-05-11 12:10 | Outpatient (CLI) | payer OTHER, SELFPAY ==
[2023-05-11 12:25] VITALS: RESP 15; TEMP 36.6; O2SAT 100
[2023-05-11 12:27] VITALS: PULSE 85; O2SAT 97
[2023-05-11 12:29] VITALS: BP 122/73; PULSE 80
[2023-05-11 13:07] LABS: ROM Internal Control Test YES-OK TO RESULT pt. (Internal QC); ROM Patient Test Negative (Negative); Record Kit Lot#, ROM+ K1374
--- NOTE | 2023-05-12 00:58 | OB.TRI.PN_ITS ---
Progress Notes Progress Note: Patient presents for triage evaluation secondary to questionable ROM FHT: 135 Moderate variability reactive no decelerations category I tracing [place]: no regular Contractions Assessment and plan: amniotic membranes intact Reactive NST, reassuring maternal and status patient discharged to home to follow-up as scheduled. See problem list details for additional plan information. Laboratory Studies: Laboratory Tests 05/11/23 Range/Units 12:25 Vag Amniotic Fld Detect Negative (Negative) Charges/Coding Procedures Urinary/Genital 52xxx-59xxx: 16752-09 non-stress test Interp
== END 2023-05-11 13:50 | disposition home or self-care (01) ==
LOC: WPOUT 12:14 → WP 12:14
PROVIDERS: PCP Family Medicine; Referring Provider Obstetrics & Gynecology; Visit Provider Obstetrics & Gynecology
DX: Z71.1 Person with feared health complaint in whom no diagnosis is made (principal)
CPT/HCPCS: 59025; 59050; 84112; 99221; G0378

== ENCOUNTER 2023-05-23 14:51 | Outpatient (CLI) | payer OTHER, SELFPAY ==
[2023-05-23 15:01] VITALS: BP 130/68; PULSE 94
[2023-05-23 15:10] VITALS: BP 130/68; PULSE 99; RESP 18; TEMP 37.1; O2SAT 97
[2023-05-23] MEDS: Lactated Ringers 1,000 ML 999 ML IV (15:25)
[2023-05-23 15:42] VITALS: BMI 32.7
[2023-05-23 16:09] LABS: Hemoglobin 12.5 g/dL (12.0-15.0); Mean Corp Hgb Conc 33.8 g/dL (32-36); Mean Corpuscular Hgb 30.4 pg (27.0-32.0); Mean Platelet Vol. 10.2 fl (6.2-12.0); Platelet Count 358 K/mm3 (150-450); RBC Distribution Width CV 12.3 % (11.6-14.6); RBC Distribution Width SD 40.1 fl (35.1-43.9); Red Blood Count 4.11 M/mm3 (4.2-5.4); White Blood Count 14.3 K/mm3 (4.4-11.0)
[2023-05-23] MEDS: DiphenhydrAMINE 50 MG/ML Syringe 25 MG IV (16:14)
[2023-05-23 16:23] VITALS: BP 124/71; PULSE 77
[2023-05-23 16:27] LABS: Uric Acid 3.4 mg/dL (2.6-6.0)
[2023-05-23 16:34] LABS: ALB/GLOB Ratio 0.8 RATIO (0.9-2.4); AST(SGOT) 20 U/L (15-37); Alanine Aminotransfer ALT/SGPT 21 U/L (13-56); Albumin, Serum 2.7 g/dL (3.2-5.0); Alkaline Phosphatase 112 U/L (45-117); Anion Gap 6 (5-15); BUN 10 mg/dL (7-18); BUN/Creat Ratio 17.5 RATIO (10-20); Calcium,Total 8.8 mg/dL (8.5-10.1); Chloride 109 mmol/L (98-107); Creatinine, Serum 0.57 mg/dL (0.55-1.02); EST Glomerular Filtration Rate 134 mL/min (>60); Est Glom Filt Rate - Afr Amer 162 mL/min (>60); Globulin 3.5 g/dL (2.2-4.2); Glucose 79 mg/dL (74-106); Potassium 3.9 mmol/L (3.5-5.1); Protein, Total 6.2 g/dL (6.4-8.2); Sodium Level 138 mmol/L (136-145)
--- NOTE | 2023-05-23 18:00 | OB.TRI.PN_ITS ---
Progress Notes Date of Service: 05/23/23 Progress Note: Patient presents for triage evaluation secondary to rash, itching hands and feet and fatigue FHT: 130 Moderate variability reactive no decelerations category I tracing [place]: no Contractions Assessment and plan: normal labs and vitals, Reactive NST, reassuring maternal and status patient discharged to home to follow-up in office. Discussed with Dr rausch and agrees with plan of care. See problem list details for additional plan information. Laboratory Studies: Laboratory Tests 05/23/23 05/23/23 05/23/23 Range/Units 15:25 15:25 15:25 WBC (4.4-11.0) K/mm3 RBC (4.2-5.4) M/mm3 Hgb (12.0-15.0) g/dL Hct (37-47) % MCV (81-99) fL MCH (27.0-32.0) pg MCHC (32-36) g/dL RDW Std Deviation (35.1-43.9) fl RDW Coeff of Marley (11.6-14.6) % Plt Count (150-450) K/mm3 MPV (6.2-12.0) fl Sodium (136-145) mmol/L Potassium (3.5-5.1) mmol/L Chloride (98-107) mmol/L Carbon Dioxide (21.0-32.0) mmol/L Anion Gap (5-15) BUN (7-18) mg/dL Creatinine Estim Creat Clear Calc ml/min Est GFR (MDRD) Af Amer Est GFR (MDRD) Non-Af 134 BUN/Creatinine Ratio 17.5 (10-20) RATIO Glucose 79 (74-106) mg/dL Uric Acid 3.4 (2.6-6.0) mg/dL Calcium 8.8 (8.5-10.1) mg/dL Total Bilirubin 0.40 (0.20-1.00) mg/dL AST 20 Cancelled ALT 21 Cancelled Alkaline Phosphatase 112 (45-117) U/L Total Protein 6.2 L (6.4-8.2) g/dL Albumin 2.7 L (3.2-5.0) g/dL Globulin 3.5 (2.2-4.2) g/dL Albumin/Globulin Ratio 0.8 L (0.9-2.4) RATIO Miscellaneous Test Cancelled 05/23/23 05/23/23 05/23/23 Range/Units 15:25 15:25 15:25 WBC 14.3 H (4.4-11.0) K/mm3 RBC 4.11 L (4.2-5.4) M/mm3 Hgb 12.5 (12.0-15.0) g/dL Hct 37.0 (37-47) % MCV 90.0 (81-99) fL MCH 30.4 (27.0-32.0) pg MCHC 33.8 (32-36) g/dL RDW Std Deviation 40.1 (35.1-43.9) fl RDW Coeff of Marley 12.3 (11.6-14.6) % Plt Count 358 (150-450) K/mm3 MPV 10.2 (6.2-12.0) fl Sodium 138 (136-145) mmol/L Potassium 3.9 (3.5-5.1) mmol/L Chloride 109 H (98-107) mmol/L Carbon Dioxide 23.0 (21.0-32.0) mmol/L Anion Gap 6 (5-15) BUN 10 (7-18) mg/dL Creatinine 0.57 Cancelled Estim Creat Clear Calc 173.70 ml/min Est GFR (MDRD) Af Amer 162 Cancelled Est GFR (MDRD) Non-Af Cancelled BUN/Creatinine Ratio (10-20) RATIO Glucose (74-106) mg/dL Uric Acid (2.6-6.0) mg/dL Calcium (8.5-10.1) mg/dL Total Bilirubin (0.20-1.00) mg/dL AST ALT Alkaline Phosphatase (45-117) U/L Total Protein (6.4-8.2) g/dL Albumin (3.2-5.0) g/dL Globulin (2.2-4.2) g/dL Albumin/Globulin Ratio (0.9-2.4) RATIO Miscellaneous Test Charges/Coding Multi Select Codes Urinary/Genital Urinary/Genital CPT Codes: No Charge Assessment & Plan (1) Urinary tract infection affecting : COMMENT: Currently on antibiotic/neg culture. Stopped antibiotic (2) Anxiety: COMMENT: lexapro increased 20 mg, counseling, (3) Supervision of normal first : QUALIFIERS: Trimester: second trimester Qualified Code(s): Z34.02 - Encounter for supervision of normal first , second trimester COMMENT: PRR ROMY 06/30/2023. boy, Hasmukh partner:Marcos (4) : QUALIFIERS: Weeks of gestation: 34 weeks Qualified Code(s): Z3A.34 - 34 weeks gestation of COMMENT: NIPT low risk, declind ntd and carrier, normal anatomy (5) Cholestasis during : COMMENT: Rule out. bile acids pending. normal liver enzymes
== END 2023-05-23 18:03 | disposition home or self-care (01) ==
LOC: WPOUT 14:52 → WP 14:52
PROVIDERS: PCP Family Medicine; Referring Provider Advanced Practice Midwife; Visit Provider Advanced Practice Midwife
DX: O99.891 Other specified diseases and conditions complicating pregnancy (principal); R21 Rash and other nonspecific skin eruption; O23.43 Unspecified infection of urinary tract in pregnancy, third trimester; O99.343 Other mental disorders complicating pregnancy, third trimester; F41.9 Anxiety disorder, unspecified; Z79.899 Other long term (current) drug therapy; Z3A.34 34 weeks gestation of pregnancy
CPT/HCPCS: 96374; 96361; 36415; 59025; 59050; 80053; 84550; 85027; 99221; J7120; G0378

== ENCOUNTER → 2023-05-23 | Outpatient (CLI) | payer OTHER, SELFPAY ==
[2023-05-23 15:58] LABS: Protein, Urine (Random) 13.4 mg/dL (<11.9); Protein:Creat Ratio 206 mg/g CRE (0-200)
== END | disposition home or self-care (01) ==
PROVIDERS: PCP Family Medicine; Referring Provider Obstetrics & Gynecology; Visit Provider Obstetrics & Gynecology
DX: L29.9 Pruritus, unspecified (principal)
CPT/HCPCS: 82570; 84156

== ENCOUNTER 2023-05-24 13:15 | Outpatient (CLI) | payer OTHER, SELFPAY ==
[2023-05-24 13:34] VITALS: RESP 16; TEMP 36.3
[2023-05-24 13:39] VITALS: BP 142/90; PULSE 89
[2023-05-24 13:45] VITALS: BMI 32.9
[2023-05-24 13:50] LABS: Color, Urine Yellow (Yellow); Glucose, Dipstick Normal (Normal); Ketone-Dipstick Negative (Negative); Leukocyte Esterase-Dipstick 500 /ul (Negative); Nitrite-Dipstick Negative (Negative); Occult Blood-Urine Negative /ul (Negative); Protein-Dipstick Negative (Negative); Urine Bilirubin Dipstick Negative (Negative); Urine Clarity Clear (Clear); Urine Urobilinogen Normal (Normal)
[2023-05-24 14:07] VITALS: BP 134/85; PULSE 88
--- NOTE | 2023-05-24 14:21 | US_ITS ---
INDICATION: decreased FM EXAMINATION: Ultrasound US Biophysical Profile W/O Nonst TECHNIQUE: Transabdominal pelvic ultrasound was performed. COMPARISON: No relevant prior comparison study available LMP: 09/23/2022 Beta-hCG: Unknown. Provided EGA: None. FINDINGS: INTRAUTERINE GESTATION(s): Single. HEART MOTION is 137 bpm. AMNIOTIC FLUID INDEX (DAVID): 12 cm, the largest pocket measures 4.4 cm. BIOPHYSICAL PROFILE (BPP): 09/27 -- Breathin/2. -- Movement: 2/2. -- Tone: 2/2. --DAVID: 2/2. PRESENTATION: Cephalic PLACENTA: Anterior grade 3. There is no placenta previa or abruption. CERVIX: The cervix is not visualized. MATERNAL OVARIES: Not visualized. FREE FLUID: None. US/Biophysical Prof W/O Non Stres IMPRESSION: Normal biophysical profile with score of 8 out of 8. Electronically Signed: Víctor Clinton MD at 15:26 EDT ,
[2023-05-24] MEDS: Acetaminophen 500 MG Tablet 1000 MG PO (14:46)
[2023-05-24 15:12] VITALS: BP 139/86; PULSE 75
--- NOTE | 2023-05-24 19:48 | OB.TRI.HP_ITS ---
HPI - General HPI Narrative ARIES PARISI, is a 28 F who presents to L&D at 34 weeks with decreased movement and left upper quadrant pain. PIH labs were done less than 24 hours ago and were noted to be normal. She is very anxious today due to decreased movement. An NST and BPP were ordered Maternal Data Information ROMY Calculator Estimated Delivery Date Method Current WG Current Estimate 06/30/23 LMP (Certain) 34w 5d PFSH PFSH Medical History Anxiety COVID-19 Dysuria Home Medications inulin 2 gram chewable tablet (Fiber Gummies) 2 g PO DAILY 11/30/22 [History Last Taken 05/23/23 22:00 2 grams] multivitamin no.47-iron fum 27 mg-folate no.1 1 mg-dha 300 mg capsule (PNV-DHA) 1 cap PO DAILY 11/30/22 [History Last Taken 05/23/23 22:00 1 cap] escitalopram oxalate 20 mg tablet 20 mg PO DAILY #30 tabs 03/23/23 [Rx Last Taken 05/23/23 22:00 20 mg] Allergy/AdvReac Type Severity Reaction Status Date / Time gluten Allergy Intermediate Abd Verified 05/24/23 13:33 cramps/diarrhea cefuroxime [From Ceftin] Allergy Rash Verified 05/24/23 13:33 coconut AdvReac Intermediate Rash Verified 05/24/23 13:33 Family History Grandfather Throat cancer Grandfather Alzheimer disease Dementia Grandmother Cancer Mother Breast cancer, Onset Age: 25 Endometriosis Father No problems noted. 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[employer] current occupational exposures/hazards: Yes pets and animals: Yes history of recent travel: No sexually active: Yes Smoking Status: Former smoker how long ago did patient quit smoking: quit a month ago since alcohol intake: never substance use type: does not use seatbelt use: always do you feel safe at home: Yes additional social history: Spouse - Marcos [employer] History 1 Elective abortions Hx Para Spontaneous abortions Hx # Term Pregnancies Ectopic pregnancies Hx # Pregnancies Multiple births # of living children Visit Details Expected Delivery Route/Plan Labor Preferences- CB/BF classes: [] labor support person: [] labor intervention preferences: [] pain management options preferred: [] cut cord/dad catch: [] : [] PP control planned: [] discussed possible routes of delivery and associated risks: [] special requests: [] Plans Covid status: [] Flu vaccine: [] Tdap vaccine: [] Rhogam: [] LARC form signed: [] Problem list reviewed and updated with the most current plan of care details and appropriate orders placed. Relevant counseling for the gestational age provided. Continue routine care and follow up unless otherwise noted in visit notes/problem list details OB Flowsheet Initial Weight: 165 lb Date -?-?-?-?-?-?-?-?-?-?-?-?- EGA Weight BP Urine Prot -?-?-?-?-?-?-?-?-?-?-?-?- Glucose FHR FuHt Pres Dilation -?-?-?-?-?-?-?-?-?-?-?-?- Effaced St Visit Note 11/30/22 -?-?-?-?-?-?-?-?-?-?-?-?- 9w 5d 165 lb 6 oz (+6 oz) 118/83 -?-?-?-?-?-?-?-?-?-?-?-?- 163 -?-?-?-?-?-?-?-?-?-?-?-?- LC- CRL con with LMP. discussed and considering nipt and carrier screening. will decided by next visit. 12/28/22 -?-?-?-?-?-?-?-?-?-?-?-?- 13w 5d 169 lb 2 oz (+4 lb 2 oz) 119/78 Negative -?-?-?-?-?-?-?-?-?-?-?-?- Negative 150 -?-?-?-?-?-?-?-?-?-?-?-?- LC- no vb/crampi ng. no concerns. wc us ordered due to cost. declines afp. LC- no vb/cramping. no john rns. [facility] us ordered due to cost. declines afp. its a boy! 01/27/23 -?-?-?-?-?-?-?-?-?-?-?-?- 18w 0d 177 lb 6 oz (+12 lb 6 oz) 122/81 Negative -?-?-?-?-?-?-?-?-?-?-?-?- Negative 153 -?-?-?-?-?-?-?-?-?-?-?-?- JV- no lof, vagi nal bleeding, or cramping. had bleeding and was seen in ER. this was after sex. suspect cervical ectropion. [facility] ultrasound ordered. 01/30/23 -?-?-?-?-?-?-?-?-?-?-?-?- 18w 3d 177 lb 6 oz (+12 lb 6 oz) Negative -?-?-?-?-?-?-?-?-?-?-?-?- Negative 146 0 -?-?-?-?-?-?-?-?-?-?-?-?- MH-Lower pelvic pain X 1 week. Went to ED. Normal US. Given Amoxil for UTI but culture was negative and sx persist. No bleeding. Denies vaginal itching. Has burning after urination. UA negative. Urine culture and comp vag culture plus BV pending. 02/24/23 -?-?-?-?-?-?-?-?-?-?-?-?- 22w 0d 190 lb 8 oz (+25 lb 8 oz) 117/76 Negative -?-?-?-?-?-?-?-?-?-?-?-?- Negative 155 22 -?-?-?-?-?-?-?-?-?-?-?-?- KW-no vb/crampin lynnette blanc. Discussed 28 week labs. cancelled anatomy scan due to cost. stressed importance of getting it done and will try through [facility] to get ordered. 03/23/23 -?-?-?-?-?-?-?-?-?-?-?-?- 25w 6d 192 lb (+27 lb) 130/91 Negative -?-?-?-?-?-?-?-?-?-?-?-?- Negative 150 -?-?-?-?-?-?-?-?-?-?-?-?- SM- no vb lof go od fm no regular ctx will do gct next time. 04/11/23 -?-?-?-?-?-?-?-?-?-?-?-?- 28w 4d 199 lb (+34 lb) 128/74 Negative -?-?-?-?-?-?-?-?-?-?-?-?- Negative 150 28 -?-?-?-?-?-?-?-?-?-?-?-?- KW- passed gct. no vb/ctx. good fm. Tdap and LARC today 04/28/23 -?-?-?-?-?-?-?-?-?-?-?-?- 31w 0d 197 lb (+32 lb) 126/80 Negative -?-?-?-?-?-?-?-?-?-?-?-?- Negative 155 31 -?-?-?-?-?-?-?-?-?-?-?-?- LC- no lof/ctx/v b. good fm. hip discomfort reviewed techniques. 05/09/23 -?-?-?-?-?-?-?-?-?-?-?-?- 32w 4d 202 lb 6 oz (+37 lb 6 oz) 106/71 Negative -?-?-?-?-?-?-?-?-?-?-?-?- Negative 150 34 -?-?-?-?-?-?-?-?-?-?-?-?- kw-no vb/lof/ctx . good fm. 05/23/23 -?-?-?-?-?-?-?-?-?-?-?-?- 34w 4d 210 lb (+45 lb) 125/81 -?-?-?-?-?-?-?-?-?-?-?-?- 180 -?-?-?-?-?-?-?-?-?-?-?-?- JV- pt presents with c/o low grade fever, rash on dorsal aspect of hands, itching of hands and feet, vision changes, and some disorientation at home. She is able to talk complete sentences without slurring speech. Face is symmetrical and she is moving her limbs equally. She also complaints of swelling in feet. an NST was started then stopped when heart tones in 170's-180's was noted to be sustained. sending to l&D for cbc, cmp, uric acid, iv fluids and benadryl. We will send out a prot:cr ratio here and order placed for bile acids to rule out pre-e and cholestasis. suspect viral illness however and suspect IV fluids will improve both baby and maternal symptoms. ROS Constitutional Constitutional: Reports systems reviewed and no addt'l complaints, except as documented Gastrointestinal Gastrointestinal: Denies bloating, constipation, cramping, diarrhea, nausea or vomiting Genitourinary Genitourinary: Reports other Details: Denies vaginal odor, vaginal bleeding, or vaginal discharge ; Denies difficulty urinating or flank pain NST FHR Rate Baby A Baseline: 140 Variability:: Moderate Accelerations:: 15 x 15 Decelerations:: None NST Reactive:: Yes FHR Category:: Category I Assessment & Plan (1) : QUALIFIERS: Weeks of gestation: 34 weeks Qualified Code(s): Z3A.34 - 34 weeks gestation of COMMENT: NIPT low risk, declind ntd and carrier, normal anatomy (2) Supervision of normal first : QUALIFIERS: Trimester: second trimester Qualified Code(s): Z34.02 - Encounter for supervision of normal first , second trimester COMMENT: PRR ROMY 06/30/2023. boy, [place] partner:Marcos (3) Anxiety: COMMENT: lexapro increased 20 mg, counseling, (4) Urinary tract infection affecting : COMMENT: Currently on antibiotic/neg culture. Stopped antibiotic (5) Decreased movement affecting management of mother, antepartum: PLAN: Plan nst is reactive and bpp is 8/8. recommend tylenol for pain, rest at home. recommend stopping work due to mild elevations in blood pressure. recommend repeating pih labs next week and close follow up. Charges/Coding Multi Select Codes Urinary/Genital Urinary/Genital CPT Codes: 78863-54 non-stress test Interp
== END 2023-05-24 16:30 | disposition home or self-care (01) ==
LOC: WPOUT 13:24 → WP 13:24
PROVIDERS: PCP Family Medicine; Referring Provider Obstetrics & Gynecology; Visit Provider Obstetrics & Gynecology
DX: O36.8130 Decreased fetal movements, third trimester, not applicable or unspecified (principal); Z3A.34 34 weeks gestation of pregnancy; O99.891 Other specified diseases and conditions complicating pregnancy; R10.12 Left upper quadrant pain; O99.343 Other mental disorders complicating pregnancy, third trimester; F41.9 Anxiety disorder, unspecified; Z79.899 Other long term (current) drug therapy; Z87.891 Personal history of nicotine dependence
CPT/HCPCS: 59025; 59050; 76819; 81002; 87086; 87088; 99221; G0378

== ENCOUNTER 2023-06-08 11:25 | Outpatient (CLI) | payer OTHER, SELFPAY ==
[2023-06-08] VITALS (10 sets, daily range): BP systolic 132–171; BP diastolic 78–92; PULSE 80–96; RESP 14; TEMP 37.3; O2SAT 97–100; BMI 32.7
--- NOTE | 2023-06-08 12:16 | US_ITS ---
STUDY: SECOND AND THIRD TRIMESTER OBSTETRICAL ULTRASOUND - LIMITED REASON FOR EXAM: Female, 28 years old growth and fluid check LMP: September 23, 2022 PRIOR ULTRASOUND: Comparison is made with prior study dated May 24, 2023. TECHNIQUE: Transabdominal TECHNICAL QUALITY: Adequate. FINDINGS: There is a single intrauterine fetus. The fetus is in a cephalic presentation. There is demonstrated cardiac activity with a heart rate of 148 bpm. There is a normal amniotic fluid volume. The largest amniotic fluid pocket measures 3.62 cm. The amniotic fluid index (DAVID) is 11.1 cm. The placenta is anterior in location and is not low lying. There are Grade 3 placental changes. The cervical length was not measured due to the head position. BIOMETRY: BPD: 8.96 cm: 36 weeks, 2 days HC: 32.56 cm: 36 weeks, 6 days AC: 32.96 cm: 36 weeks, 6 days FL: 6.99 cm: 35 weeks, 6 days Age by LMP: 36 weeks, 6 days. ROMY by LMP: June 30, 2023. age by current US: 36 weeks, 2 days. ROMY by current US: July 04, 2023. Estimated weight: 2989 grams, +/- 448 grams, 49 percentile. US/OB Limited With Biometrics IMPRESSION: Single live intrauterine gestation with mean gestational age of 36 weeks and 2 days. Electronically Signed: Stevan Love MD at 16:00 EDT ,
[2023-06-08 12:41] LABS: AST(SGOT) 15 U/L (15-37); Alanine Aminotransfer ALT/SGPT 14 U/L (13-56); Creatinine, Serum 0.61 mg/dL (0.55-1.02); EST Glomerular Filtration Rate 125 mL/min (>60); Est Glom Filt Rate - Afr Amer 151 mL/min (>60); Uric Acid 4.1 mg/dL (2.6-6.0)
[2023-06-08 12:58] LABS: Protein, Urine (Random) 23.2 mg/dL (<11.9); Protein:Creat Ratio 166 mg/g CRE (0-200)
[2023-06-08 13:18] LABS: Hematocrit 37.9 % (37-47); Hemoglobin 12.6 g/dL (12.0-15.0); Mean Corp Hgb Conc 33.2 g/dL (32-36); Mean Corpuscular Hgb 29.9 pg (27.0-32.0); Mean Platelet Vol. 10.2 fl (6.2-12.0); Platelet Count 318 K/mm3 (150-450); RBC Distribution Width CV 12.4 % (11.6-14.6); RBC Distribution Width SD 40.4 fl (35.1-43.9); Red Blood Count 4.21 M/mm3 (4.2-5.4); White Blood Count 14.9 K/mm3 (4.4-11.0)
--- NOTE | 2023-06-08 17:15 | OB.TRI.PN_ITS ---
Progress Notes Date of Service: 06/08/23 Progress Note: Patient presents for triage evaluation secondary to elevated bps FHT: 140 Moderate variability reactive no decelerations category I tracing [place]: no regular Contractions Assessment and plan: ghtn Reactive NST, reassuring maternal and status patient discharged to home to follow-up tomorrow for IOL. See problem list details for additional plan information. Laboratory Studies: Laboratory Tests 06/08/23 06/08/23 Range/Units 13:10 12:10 WBC 14.9 H Cancelled Corrected WBC Cancelled RBC 4.21 Cancelled Hgb 12.6 Cancelled Hct 37.9 Cancelled MCV 90.0 Cancelled MCH 29.9 Cancelled MCHC 33.2 Cancelled RDW Std Deviation 40.4 Cancelled RDW Coeff of Marley 12.4 Cancelled Plt Count 318 Cancelled MPV 10.2 Cancelled Diff Path Review Cancelled Creatinine 0.61 (0.55-1.02) mg/dL Est GFR (MDRD) Af Amer 151 (>60) mL/min Est GFR (MDRD) Non-Af 125 (>60) mL/min Uric Acid 4.1 (2.6-6.0) mg/dL AST 15 (15-37) U/L ALT 14 (13-56) U/L U Random Total Protein 23.2 H (<11.9) mg/dL Urine Creatinine 140.00 (NO RANGE EST.) mg/dL Protein/Creatinin Ratio 166 (0-200) mg/g CRE Charges/Coding Procedures Urinary/Genital 52xxx-59xxx: 50173-50 non-stress test Interp
== END 2023-06-08 15:45 | disposition home or self-care (01) ==
LOC: WPOUT 11:30 → WP 11:31
PROVIDERS: PCP Family Medicine; Referring Provider Obstetrics & Gynecology; Visit Provider Obstetrics & Gynecology
DX: O99.891 Other specified diseases and conditions complicating pregnancy (principal); R03.0 Elevated blood-pressure reading, without diagnosis of hypertension; Z3A.00 Weeks of gestation of pregnancy not specified
CPT/HCPCS: 59050; 76816; 82565; 82570; 84156; 84450; 84460; 84550; 85027; 87081; 99221; G0378

== ENCOUNTER 2023-06-09 08:02 | Inpatient (IN) | payer OTHER, SELFPAY ==
[2023-06-09] VITALS (56 sets, daily range): BP systolic 120–152; BP diastolic 66–92; PULSE 59–245; RESP 16–24; TEMP 36.4–37.3; O2SAT 81–100; BMI 33.0
[2023-06-09] MEDS: Lactated Ringers 1,000 ML 50 ML IV ×2 (07:50→17:08)
--- NOTE | 2023-06-09 08:07 | HP.PCM.OB_ITS ---
HPI - General General Date of Admission: 06/09/23 Date of Service: 06/09/23 HPI Narrative ARIES PARISI, is a 28 F 37.0 weeks gestation who presents for IOL for gestational HTN Maternal Data Information ROMY Calculator Estimated Delivery Date Method Current WG Current Estimate 06/30/23 LMP (Certain) 37w 0d Final ROMY: 06/30/23 Final ROMY Source: US >20 weeks Gestational age: 37.0 weeks PFSH PFSH Medical History Anxiety COVID-19 Dysuria Home Medications inulin 2 gram chewable tablet (Fiber Gummies) 2 g PO DAILY SUPPLEMENT 11/30/22 [History Last Taken 06/08/23] multivitamin no.47-iron fum 27 mg-folate no.1 1 mg-dha 300 mg capsule (PNV-DHA) 1 cap PO DAILY VITAMIN 11/30/22 [History Last Taken 05/23/23 22:00 1 cap] escitalopram oxalate 20 mg tablet 20 mg PO DAILY ANXIETY #30 tabs 03/23/23 [Rx Last Taken 06/08/23] Allergy/AdvReac Type Severity Reaction Status Date / Time gluten Allergy Intermediate Abd Verified 06/08/23 10:20 cramps/diarrhea cefuroxime [From Ceftin] Allergy Rash Verified 06/08/23 10:20 coconut AdvReac Intermediate Rash Verified 06/08/23 10:20 Family History Grandfather Throat cancer Grandfather Alzheimer disease Dementia Grandmother Cancer Mother Breast cancer, Onset Age: 25 Endometriosis Father No problems noted. 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[employer] current occupational exposures/hazards: Yes pets and animals: Yes history of recent travel: No sexually active: Yes Smoking Status: Former smoker how long ago did patient quit smoking: quit a month ago since alcohol intake: never substance use type: does not use seatbelt use: always do you feel safe at home: Yes additional social history: Spouse - Marcos Marina Porter History 1 Elective abortions Hx Para Spontaneous abortions Hx # Term Pregnancies Ectopic pregnancies Hx # Pregnancies Multiple births # of living children Visit Details Expected Delivery Route/Plan Labor Preferences- CB/BF classes: [] labor support person: [] labor intervention preferences: [] pain management options preferred: [] cut cord/dad catch: [] : [] PP control planned: [] discussed possible routes of delivery and associated risks: [] special requests: [] Plans Covid status: [] Flu vaccine: [] Tdap vaccine: [] Rhogam: [] LARC form signed: [] Problem list reviewed and updated with the most current plan of care details and appropriate orders placed. Relevant counseling for the gestational age provided. Continue routine care and follow up unless otherwise noted in visit notes/problem list details OB Flowsheet Initial Weight: 165 lb Date -?-?-?-?-?-?-?-?-?-?-?-?- EGA Weight BP Urine Prot -?-?-?-?-?-?-?-?-?-?-?-?- Glucose FHR FuHt Pres Dilation -?-?-?-?-?-?-?-?-?-?-?-?- Effaced St Visit Note 11/30/22 -?-?-?-?-?-?-?-?-?-?-?-?- 9w 5d 165 lb 6 oz (+6 oz) 118/83 -?-?-?-?-?-?-?-?-?-?-?-?- 163 -?-?-?-?-?-?-?-?-?-?--?-?- LC- CRL con with LMP. discussed and considering nipt and carrier screening. will decided by next visit. 12/28/22 -?-?-?-?-?-?-?-?-?-?-?-?- 13w 5d 169 lb 2 oz (+4 lb 2 oz) 119/78 Negative -?-?-?-?-?-?-?-?-?-?-?-?- Negative 150 -?-?-?-?-?-?-?-?-?-?-?-?- LC- no vb/crampi ng. no concerns. wc us ordered due to cost. declines afp. LC- no vb/cramping. no john rns. [facility] us ordered due to cost. declines afp. its a boy! 01/27/23 -?-?-?-?-?-?-?-?-?-?-?-?- 18w 0d 177 lb 6 oz (+12 lb 6 oz) 122/81 Negative -?-?-?-?-?-?-?-?-?-?-?-?- Negative 153 -?-?-?-?-?-?-?-?-?-?-?-?- JV- no lof, vagi nal bleeding, or cramping. had bleeding and was seen in ER. this was after sex. suspect cervical ectropion. [facility] ultrasound ordered. 01/30/23 -?-?-?-?-?-?-?-?-?-?-?-?- 18w 3d 177 lb 6 oz (+12 lb 6 oz) Negative -?-?-?-?-?-?-?-?-?-?-?-?- Negative 146 0 -?-?-?-?-?-?-?-?-?-?-?-?- MH-Lower pelvic pain X 1 week. Went to ED. Normal US. Given Amoxil for UTI but culture was negative and sx persist. No bleeding. Denies vaginal itching. Has burning after urination. UA negative. Urine culture and comp vag culture plus BV pending. 02/24/23 -?-?-?-?-?-?-?-?-?-?-?-?- 22w 0d 190 lb 8 oz (+25 lb 8 oz) 117/76 Negative -?-?-?-?-?-?-?-?-?-?-?-?- Negative 155 22 -?-?-?-?-?-?-?-?-?-?-?-?- KW-no vb/crampin lynnette blanc. Discussed 28 week labs. cancelled anatomy scan due to cost. stressed importance of getting it done and will try through [facility] to get ordered. 03/23/23 -?-?-?-?-?-?-?-?-?-?-?-?- 25w 6d 192 lb (+27 lb) 130/91 Negative -?-?-?-?-?-?-?--?-?-?-?-?- Negative 150 -?-?-?-?-?-?-?-?-?-?-?-?- SM- no vb lof go od fm no regular ctx will do gct next time. 04/11/23 -?-?-?-?-?-?-?-?-?-?-?-?- 28w 4d 199 lb (+34 lb) 128/74 Negative -?-?-?-?-?-?-?-?-?-?-?-?- Negative 150 28 -?-?-?-?-?-?-?-?-?-?-?-?- KW- passed gct. no vb/ctx. good fm. Tdap and LARC today 04/28/23 -?-?-?-?-?-?-?-?-?-?-?-?- 31w 0d 197 lb (+32 lb) 126/80 Negative -?-?-?-?-?-?-?-?-?--?-?-?- Negative 155 31 -?-?-?-?-?-?-?-?-?-?-?-?- LC- no lof/ctx/v b. good fm. hip discomfort reviewed techniques. 05/09/23 -?-?-?-?-?-?-?-?-?-?-?-?- 32w 4d 202 lb 6 oz (+37 lb 6 oz) 106/71 Negative -?-?-?-?-?-?-?-?-?-?-?-?- Negative 150 34 -?-?-?-?-?-?-?-?-?-?-?-?- kw-no vb/lof/ctx . good fm. 05/23/23 -?-?-?-?-?-?-?-?-?-?-?-?- 34w 4d 210 lb (+45 lb) 125/81 -?-?-?-?-?-?-?-?-?-?-?-?- 180 -?-?-?-?-?-?-?-?-?-?-?-?- JV- pt presents with c/o low grade fever, rash on dorsal aspect of hands, itching of hands and feet, vision changes, and some disorientation at home. She is able to talk complete sentences without slurring speech. Face is symmetrical and she is moving her limbs equally. She also complaints of swelling in feet. an NST was started then stopped when heart tones in 170's-180's was noted to be sustained. sending to l&D for cbc, cmp, uric acid, iv fluids and benadryl. We will send out a prot:cr ratio here and order placed for bile acids to rule out pre-e and cholestasis. suspect viral illness however and suspect IV fluids will improve both baby and maternal symptoms. 05/31/23 -?-?-?-?-?-?-?-?-?-?-?-?- 35w 5d 210 lb 8 oz (+45 lb 8 oz) 127/80 Negative -?-?-?-?-?-?-?-?-?-?-?-?- Negative 156 34.5 -?-?-?-?-?-?-?-?-?-?-?-?- JV- neil still jewel y nervous about home bp's in the 140's/80's-90's. here it is normal. will get her a cuff from the hospital for reassurance and accuracy. 06/08/23 -?-?-?-?-?-?-?-?-?-?-?-?- 36w 6d 209 lb (+44 lb) 145/95 Negative -?-?-?-?-?-?-?-?-?-?-?-?- Negative 150 36 -?-?-?-?-?-?-?-?-?-?-?-?- SM- bps still el evated at home- to l and d for labs and growth US, plan IOL tomorrow NST FHR Rate Baby A Baseline: 135 Variability:: Moderate Accelerations:: 15 x 15 Decelerations:: None NST Reactive:: Yes FHR Category:: Category I Uterine Activity:: irregular ROS Constitutional Constitutional: Denies change in weight, fatigue, fever(s), headache(s), poor appetite or weakness Eyes Eyes: Denies blurry vision, change in vision, floaters, seeing flashes or spots in vision ENT HEENT: Denies dizziness, headache(s), loss taste/smell or sore throat Cardiovascular Cardiovascular: Denies chest pain, dizziness, dyspnea, irregular heart rhythm, lightheadedness, palpitations or rapid heart rate Respiratory/Chest Respiratory/Chest: Denies change in mental status, chest tightness, cough, dyspnea or breast pain Gastrointestinal Gastrointestinal: Denies anorexia, chewing difficulty, constipation, diarrhea or weight changes Genitourinary Genitourinary: Denies difficulty urinating, dysuria, flank pain, genital pain, u rinary frequency or urinary urgency Musculoskeletal Musculoskeletal: Denies back pain, difficulty walking, extremity pain, joint pain, muscle cramps or muscle weakness Integumentary Integumentary: Denies lesions or unusual bruising Neurologic Neurologic: Denies abnormal movements, abnormal speech, dizziness, numbness, seizure-like activity, syncope or weakness Psychiatric Psychiatric: Denies behavioral changes, change in appetite, confusion, depression, homicidal ideation, suicidal ideation or suicidal thoughts Endocrine Endocrinology: Denies excessive sweating, polydipsia or polyuria Hematologic/Lymphatic Hematologic/Lymphatic: Denies anemia Allergic/Immunologic Allergic/Immunologic: Denies itchy eyes, lip swelling, throat swelling, tongue swelling or wheezing Physical Exam Const alert, oriented x3 and no apparent distress General Appearance: cooperative Orientation / Consciousness: awake HEENT normocephalic Neck full ROM Lymph Lymphatic: no lymphadenopathy noted Chest inspection of chest normal Resp normal respiratory effort and normal air movement Effort and Inspection: able to speak in complete sentences and symmetric chest movement GI soft to palpation and non-tender Inspection: gravid Palpation: soft; Negative for tender external exam normal Manual OB Exam: dilated 4, effaced 70 and station -2 Back/Spine normal to inspection Extremity normal to inspection and full ROM Skin no rashes or lesions noted Psych mental status grossly normal Appearance: grossly normal Speech: normal speech Labs Labs Labs: Blood Type A POSITIVE Antibody Screen NEGATIVE Hct 37.9 % (37-47) Hgb 12.6 g/dL (12.0-15.0) Obstetrics Ultrasound Syphilis Total Ab Non-reactive VZV IgG Antibody 798 index (Immune >165) Rubella IgG Antibody Reactive (Nonreactive) Hep Bs Antigen Non-Reactive (Nonreactive) Hepatitis C Antibody Non-Reactive (Nonreactive) HIV 1&2 Antibody Non-Reactive (Nonreactive) Glucose 1 Hr 50 gm 121 mg/dL (70-140) Miscellaneous Test Assessment & Plan (1) Gestational hypertension: COMMENT: plan IOL 37. growth US and labs done 06/07 PLAN: Patient presents IOL, plan management for with pitocin/AROM. Pain management: plans epidural. GBS pending. Management of any complications: GHTN I have reviewed [facility] and made any clinically relevant updates. (2) Urinary tract infection affecting : COMMENT: Currently on antibiotic/neg culture. Stopped antibiotic (3) Anxiety: COMMENT: lexapro increased 20 mg, counseling, (4) Supervision of normal first : QUALIFIERS: Trimester: second trimester Qualified Code(s): Z34.02 - Encounter for supervision of normal first , second trimester COMMENT: PRR ROMY 06/30/2023. boy, Hasmukh partner:Marcos (5) : QUALIFIERS: Weeks of gestation: 36 weeks Qualified Code(s): Z3A.36 - 36 weeks gestation of COMMENT: NIPT low risk, declind ntd and carrier, normal anatomy (6) Encounter for induction of labor: Charges/Coding Multi Select Codes Urinary/Genital Urinary/Genital CPT Codes: No Charge
[2023-06-09 08:24] LABS: Absolute Lymphocyte Count 2.24 X10^3/uL (0.83-4.51); Absolute Neutrophil Count 9.8 X10^3/uL (2.0-7.7); Basophil% 0.7 % (0-1); Eosinophil# 0.38 X10^3/uL; Eosinophils% 2.8 % (0-5); Hematocrit 35.2 % (37-47); Hemoglobin 11.8 g/dL (12.0-15.0); Lymphocyte # 2.24 X10^3/ul (0.83-4.51); Lymphocyte % 16.3 % (19-41); Mean Corp Hgb Conc 33.5 g/dL (32-36); Mean Corpuscular Hgb 29.9 pg (27.0-32.0); Mean Corpuscular Volume 89.1 fL (81-99); Mean Platelet Vol. 10.4 fl (6.2-12.0); Monocyte# 1.05 X10^3/uL; Monocyte% 7.6 % (0-10); NRBC Flagged by Analyzer 0 % (0-5); Neutrophil # 9.84 X10^3/uL (2.7-7.7); Neutrophil % 71.6 % (47-70); Platelet Count 338 K/mm3 (150-450); RBC Distribution Width CV 12.3 % (11.6-14.6); RBC Distribution Width SD 39.9 fl (35.1-43.9); Red Blood Count 3.95 M/mm3 (4.2-5.4); White Blood Count 13.8 K/mm3 (4.4-11.0)
[2023-06-09 08:45] LABS: AST(SGOT) 18 U/L (15-37); Alanine Aminotransfer ALT/SGPT 14 U/L (13-56); Creatinine, Serum 0.67 mg/dL (0.55-1.02); EST Glomerular Filtration Rate 111 mL/min (>60); Est Glom Filt Rate - Afr Amer 135 mL/min (>60); Estimated Creatinine Clearance 148.56 ml/min; Uric Acid 4.1 mg/dL (2.6-6.0)
[2023-06-09] MEDS: Oxytocin 15 Units/NS 250ml 15 UNITS/250 ML IV.SOLN 2 UNITS IV (09:03)
[2023-06-09] MEDS: Penicillin G Pot 5,000,000 UNITS in 0.9% Normal Saline (100mL MB+) 100 ML 150 UNITS IV (09:04)
[2023-06-09 09:11] LABS: Protein, Urine (Random) 27.5 mg/dL (<11.9); Protein:Creat Ratio 194 mg/g CRE (0-200)
[2023-06-09 09:13] LABS: Syphilis Antibodies Non-reactive
--- NOTE | 2023-06-09 12:15 | PN_ITS ---
Progress Note Coping well with contractions but starting to rate them 6/10. requesting epidural current tracing: FHT: 130 Moderate variability reactive no decelerations category I tracing [place]: 3-4 Contractions Membranes:intact SVE:4/80/-2 A/P: Continue with position changes Titrate pitocin per protocol Epidural per anesthesia when requested PCN for pending GBS prophylaxis AROM after comfortable with epidural Anticipate Dr Gibbs aware of above assessment and agrees with plan of care Assessment & Plan Assessment/Plan (1) Encounter for induction of labor: (2) Gestational hypertension: (3) Urinary tract infection affecting : (4) Anxiety: (5) Supervision of normal first : QUALIFIERS: Trimester: second trimester Qualified Code(s): Z34.02 - Encounter for supervision of normal first , second trimester (6) : QUALIFIERS: Weeks of gestation: 36 weeks Qualified Code(s): Z3A.36 - 36 weeks gestation of Procedures Urinary/Genital [id number]: No Charge
[2023-06-09] MEDS: LACTATED RINGERS 500 ML 999 ML IV (12:21)
[2023-06-09] MEDS: Penicillin G 3,000,000 Units 50 ML 100 UNITS IV ×3 (12:52→20:59)
[2023-06-09] MEDS: fentaNYL-bupivacaine (epidural) 100 ML BAG EPIDURAL ×2 (13:30→18:34)
--- NOTE | 2023-06-09 16:26 | PCM.PN.BLA ---
Progress Note comfortable with epidural current tracing: FHT: 145 Moderate variability reactive no decelerations category I tracing [place]: 3-5 Contractions Membranes:ruptured remains clear SVE:7/80/-1 A/P: Continue with position changes Titrate pitocin per protocol Epidural per anesthesia PCN for unknown GBS prophylaxis Anticipate Dr Gibbs aware of above assessment and agrees with plan of care Assessment & Plan Assessment/Plan (1) Encounter for induction of labor: (2) Gestational hypertension: (3) Anxiety: (4) Supervision of normal first : QUALIFIERS: Trimester: second trimester Qualified Code(s): Z34.02 - Encounter for supervision of normal first , second trimester (5) : QUALIFIERS: Weeks of gestation: 36 weeks Qualified Code(s): Z3A.36 - 36 weeks gestation of Multi Select Codes Urinary/Genital Urinary/Genital CPT Codes: No Charge
[2023-06-09] MEDS: Ondansetron 4 MG/2 ML Vial IV (19:42)
--- NOTE | 2023-06-09 22:04 | EX.PCM.OBRPT ---
Assessment & Plan (1) Vaginal delivery: COMMENT: KW 37 GHTN Denzel Noe (2) Gestational hypertension: COMMENT: plan IOL 37. growth US and labs done 06/07 (3) Anxiety: COMMENT: lexapro increased 20 mg, counseling, (4) Supervision of normal first : QUALIFIERS: Trimester: second trimester Qualified Code(s): Z34.02 - Encounter for supervision of normal first , second trimester COMMENT: PRR ROMY 06/30/2023. Hasmukh orta partner:Marcos (5) : QUALIFIERS: Weeks of gestation: 36 weeks Qualified Code(s): Z3A.36 - 36 weeks gestation of COMMENT: NIPT low risk, declind ntd and carrier, normal anatomy Maternal Data Information ROMY Calculator Estimated Delivery Date Method Current WG Current Estimate 06/30/23 LMP (Certain) 37w 0d Final ROMY: 06/30/23 Final ROMY Source: US >20 weeks Gestational age: 37.0 weeks Vaginal Delivery Maternal Presentation Maternal Presentation: Progressed well to 10cm dilated and made steady progress with effective maternal pushing. Delivered the head in AUTUMN presentation. The head was delivered atraumatically and no nuchal cord was identified. The anterior and posterior shoulders delivered without complication followed by the rest of the and the infant was placed on the maternal abdomen. Delayed cord clamping was employed for approximately 2 minutes. Cord was clamped and cut and gentle traction was applied to the cord and the placenta delivered spontaneously. blood gases obtained. Immediately following, it was noted to be intact with a 3 vessel cord. The perineum and vagina were inspected and noted to have a second degree laceration which was repaired with 3-0 Vicryl in the usual fashion. EBL was 100cc. Patient and tolerated delivery well. Apgars 7/9. Small perineal hematoma noted. Dr Gibbs notified of vaginal delivery and orders reviewed. Physician agrees with current plan of care. Type of Induction: Pitocin Medical Reason for Induction: Gestational Hypertension Operative Information Date of Procedure: 06/09/23 Pre-Operative Diagnosis: See AP comments Post-Operative Diagnosis: Same Surgery / Procedure Performed: Spontaneous Vaginal Delivery [employer] architect #1: Korin Villalobos Type of Anesthesia: Epidural Estimated Blood Loss: 100 Time of Delivery: 21:40 Findings Presentation: Vertex Amniotic Membrane Rupture Type: Artificial Amniotic Fluid Description: Clear Placental Delivery Description: Spontaneous Placenta Disposition: [facility] Cord Vessel Description: 3 Vessels Cord Entanglement: None Cord Gases: ABG and VBG A Gender: Male (1 minute): 7 (5 minute): 9 Delayed Cord Clamping: Yes Post Vaginal Delivery Medications Given After Delivery: IV Pitocin Episiotomy Description: None Laceration: 2nd degree Complication Complications: None Multi Select Codes Urinary/Genital Urinary/Genital CPT Codes: 01358 Vaginal Delivery [facility]
--- NOTE | 2023-06-09 22:09 | DCINST_ITS ---
Discharge Instructions Diet Discharge Diet: No restrictions Activity Discharge Activity: Return to Normal Activity May resume sexual activity in: 6-8 weeks Dressing / Incision Call your doctor if you observe: Fever of 101 or Higher, Coldness, Increased Pain, Numbness or Tingling, Change in Color, Inability to urinate, Inability to have a bowel movement, Using more than 1 pad per hour, Shortness of breath, Dizziness, Fainting spells, Swelling in the ankles, Chest pain, Increased palpitations (irregular heartbeat), Calf discomfort and Uncontrolled pain Follow Up Care Please Follow Up With: Korin Villalobos CNM When: Please call the office to schedule your follow up appointment in 6 weeks. If you had high blood pressure please call to schedule an appointment in 2 weeks. Test Results: Test results from this visit will be discussed in further detail at your follow- up appointment, if applicable. Discharge Plan Admission Admit Date/Time: 06/09/23 08:02 Attending Provider: Korin Villalobos Primary Care Provider: Bella Ma Discharge Orders/Prescriptions Prescriptions: No Action PNV-DHA 27 mg iron-1 mg -300 mg capsule 1 cap PO DAILY Fiber Gummies 2 gram tablet,chewable 2 g PO DAILY escitalopram oxalate 20 mg tablet 20 mg PO DAILY Qty: 30 12RF Referrals / Follow Up: Bella Ma DO [Primary Care Provider] -
[2023-06-09] MEDS: Oxytocin 15 Units/NS 250ml 15 UNITS/250 ML IV.SOLN 83 UNITS IV (22:20)
[2023-06-09] MEDS: Benzocaine/Lanolin/Aloe Vera 1 SPRAY EACH TOPICAL (22:39)
[2023-06-09] MEDS: Ibuprofen 600 MG Tablet PO (22:39)
[2023-06-09] MEDS: Escitalopram Oxalate 20 MG Tablet PO (22:40)
[2023-06-10 00:01] VITALS: RESP 20; TEMP 37.1; O2SAT 96
[2023-06-10] MEDS: 0.9% Saline Lock 10 ML Syringe IV (01:20)
--- NOTE | 2023-06-10 04:15 | PCM.PN.OB ---
Subjective Subjective Patient doing well without complaints. Tolerating PO. Ambulating and voiding without difficulty. Feeding well. Denies chest pain, shortness of breath, calf pain/swelling, fevers, chills, lightheadedness. Objective Data Objective Data Vital Signs: Vital Signs Temp Pulse Resp BP Pulse Ox 98.7 F 114 H 20 H 123/67 H 96 06/10/23 00:01 06/09/23 23:59 06/10/23 00:01 06/09/23 23:59 06/10/23 00:01 Weight: 211 lb 3.245 oz Body Mass Index (BMI) 33.0 Intake & Output: Intake and Output for Last 24 Hours 06/08/23 06/09/23 06/10/23 23:59 23:59 23:59 Intake Total 1675.83 / 1675.83 250 / 250 Output Total 1050 / 1050 350 / 350 Balance 625.83 / 625.83 -100 / -100 Lab / Micro Data 06/09/23 07:50 06/09/23 07:50 Labs: Laboratory Results - last 24 hr 06/09/23 07:50: WBC 13.8 H, RBC 3.95 L, Hgb 11.8 L, Hct 35.2 L, MCV 89.1, MCH 29.9, MCHC 33.5, RDW Std Deviation 39.9, RDW Coeff of [place] 12.3, Plt Count 338, MPV 10.4, Immature Gran % (Auto) 1.000 H, Neut % (Auto) 71.6 H, Lymph % (Auto) 16.3 L, [place] % (Auto) 7.6, Eos % (Auto) 2.8, Baso % (Auto) 0.7, Absolute Neuts (auto) 9.8 H, Absolute Lymphs (auto) 2.24, Nucleated RBC % 0, Creatinine 0.67, Estim Creat Clear Calc 148.56, Est GFR (MDRD) Af Amer 135, Est GFR (MDRD) Non-Af 111, Uric Acid 4.1, AST 18, ALT 14, Syphilis Total Ab Non-reactive, Blood Type A POSITIVE, Antibody Screen NEGATIVE 06/09/23 08:45: U Random Total Protein 27.5 H, Urine Creatinine 142.00, Protein/Creatinin Ratio 194 ROS Constitutional Constitutional: Reports systems reviewed and no addt'l complaints, except as documented; Denies anorexia or headache(s) Cardiovascular Cardiovascular: Reports systems reviewed and no addt'l complaints, except as documented; Denies dizziness, dyspnea, nausea or tachypnea Respiratory/Chest Respiratory/Chest: Reports systems reviewed and no addt'l complaints, except as documented; Denies cough, dyspnea, shortness of breath at rest or tachypnea Gastrointestinal Gastrointestinal: Reports systems reviewed and no addt'l complaints, except as documented; Denies abdominal pain, constipation or nausea Genitourinary Genitourinary: Reports systems reviewed and no addt'l complaints, except as documented; Denies burning urination, difficulty urinating, dysuria, urinary frequency or urinary incontinence Musculoskeletal Musculoskeletal: Reports systems reviewed and no addt'l complaints, except as documented Integumentary Integumentary: Reports systems reviewed and no addt'l complaints, except as documented Neurologic Neurologic: Reports systems reviewed and no addt'l complaints, except as documented; Denies abnormal speech, dizziness or headache(s) Psychiatric Psychiatric: Reports systems reviewed and no addt'l complaints, except as documented Endocrine Endocrinology: Reports systems reviewed and no addt'l complaints, except as documented Hematologic/Lymphatic Hematologic/Lymphatic: Reports systems reviewed and no addt'l complaints, except as documented Physical Exam Const alert, oriented x3 and no apparent distress Neck full ROM Resp normal respiratory effort, normal air movement and no retractions Effort and Inspection: able to speak in complete sentences and symmetric chest movement GI soft to palpation Bladder / Kidney Exam: bladder normal to palpation Uterus Palpation: uterus fundus firm Extremity normal to inspection and full ROM Psych mental status grossly normal, thought process normal and cooperative Assessment & Plan (1) Vaginal delivery: COMMENT: KW 37 GHTN Denzel Noe PLAN: s/p PPD # 1 1. routine post delivery care 2. breast feeding- support given 3. rh positive 4. rubella immune (2) Gestational hypertension: COMMENT: plan IOL 37. growth US and labs done 06/07 (3) Anxiety: COMMENT: lexapro increased 20 mg, counseling, (4) Supervision of normal first : QUALIFIERS: Trimester: second trimester Qualified Code(s): Z34.02 - Encounter for supervision of normal first , second trimester COMMENT: PRR ROMY 06/30/2023. boy, [place] partner:Marcos (5) : QUALIFIERS: Weeks of gestation: 36 weeks Qualified Code(s): Z3A.36 - 36 weeks gestation of COMMENT: NIPT low risk, declind ntd and carrier, normal anatomy Charges/Coding Multi Select Codes Urinary/Genital Urinary/Genital CPT Codes: No Charge
[2023-06-10 04:50] VITALS: BP 132/81; PULSE 90; RESP 16; TEMP 36.9; O2SAT 95
[2023-06-10] MEDS: Acetaminophen 500 MG Tablet 1000 MG PO ×2 (06:33→19:39)
[2023-06-10 08:33] VITALS: BP 125/77; PULSE 74; RESP 16; TEMP 36.7
[2023-06-10] MEDS: Ibuprofen 600 MG Tablet PO ×2 (08:41→23:59)
[2023-06-10] MEDS: oxyCODONE 5 MG Tablet PO (10:32)
[2023-06-10 12:03] VITALS: BP 139/82; PULSE 88; RESP 16; TEMP 36.8
[2023-06-10] MEDS: Senna/Docusate Sodium 1 Tablet PO (13:49)
[2023-06-10 16:40] VITALS: BP 129/98; PULSE 78; RESP 16; TEMP 36.8
[2023-06-10 20:48] VITALS: BP 128/93; PULSE 89; RESP 17; TEMP 36.6; O2SAT 96
[2023-06-11 03:17] VITALS: BP 121/78; PULSE 96; RESP 16; TEMP 36.5; O2SAT 97
[2023-06-11 08:13] VITALS: BP 129/90; PULSE 84; RESP 16; TEMP 36.5; O2SAT 96
[2023-06-11] MEDS: Ibuprofen 600 MG Tablet PO (08:20)
[2023-06-11] MEDS: oxyCODONE 5 MG Tablet PO (08:20)
--- NOTE | 2023-06-11 09:31 | PCM.PN.OB ---
Subjective Subjective Patient doing well without complaints. Tolerating PO. Ambulating and voiding without difficulty. Feeding well. Denies chest pain, shortness of breath, calf pain/swelling, fevers, chills, lightheadedness. Objective Data Objective Data Vital Signs: Vital Signs Temp Pulse Resp BP Pulse Ox O2 Del Method 97.7 F L 84 16 129/90 H 96 Room Air 06/11/23 08:13 06/11/23 08:13 06/11/23 08:13 06/11/23 08:13 06/11/23 08:13 06/11/23 08:13 Oxygen Delivery Method Room Air Weight: 211 lb 3.245 oz Body Mass Index (BMI) 33.0 Intake & Output: Intake and Output for Last 24 Hours 06/09/23 06/10/23 06/11/23 23:59 23:59 23:59 Intake Total 1675.83 / 1675.83 250 / 250 Output Total 1050 / 1050 1150 / 1150 Balance 625.83 / 625.83 -900 / -900 Lab / Micro Data Attestation: I reviewed the patient's lab results. 06/09/23 07:50 06/09/23 07:50 ROS Constitutional Constitutional: Reports systems reviewed and no addt'l complaints, except as documented; Denies anorexia or headache(s) Cardiovascular Cardiovascular: Reports systems reviewed and no addt'l complaints, except as documented; Denies dizziness, dyspnea, nausea or tachypnea Respiratory/Chest Respiratory/Chest: Reports systems reviewed and no addt'l complaints, except as documented; Denies cough, dyspnea, shortness of breath at rest or tachypnea Gastrointestinal Gastrointestinal: Reports systems reviewed and no addt'l complaints, except as documented; Denies abdominal pain, constipation or nausea Genitourinary Genitourinary: Reports systems reviewed and no addt'l complaints, except as documented; Denies burning urination, difficulty urinating, dysuria, urinary frequency or urinary incontinence Musculoskeletal Musculoskeletal: Reports systems reviewed and no addt'l complaints, except as documented Integumentary Integumentary: Reports systems reviewed and no addt'l complaints, except as documented Neurologic Neurologic: Reports systems reviewed and no addt'l complaints, except as documented; Denies abnormal speech, dizziness or headache(s) Psychiatric Psychiatric: Reports systems reviewed and no addt'l complaints, except as documented Endocrine Endocrinology: Reports systems reviewed and no addt'l complaints, except as documented Hematologic/Lymphatic Hematologic/Lymphatic: Reports systems reviewed and no addt'l complaints, except as documented Physical Exam Const alert, oriented x3 and no apparent distress Neck full ROM Resp normal respiratory effort, normal air movement and no retractions Effort and Inspection: able to speak in complete sentences and symmetric chest movement GI soft to palpation Bladder / Kidney Exam: bladder normal to palpation Uterus Palpation: uterus fundus firm Extremity normal to inspection and full ROM Psych mental status grossly normal, thought process normal and cooperative Assessment & Plan (1) Vaginal delivery: COMMENT: KW 37 GHTN You Noe PLAN: s/p PPD # 2 1. routine post delivery care 2. breast feeding- support given 3. rh positive 4. rubella immune 5. Discharge home (2) Encounter for induction of labor: (3) Gestational hypertension: COMMENT: plan IOL 37. growth US and labs done 06/07 (4) Anxiety: COMMENT: lexapro increased 20 mg, counseling, (5) Supervision of normal first : QUALIFIERS: Trimester: second trimester Qualified Code(s): Z34.02 - Encounter for supervision of normal first , second trimester COMMENT: PRR ROMY 06/30/2023. youHasmukh partner: Bulmaro (6) : QUALIFIERS: Weeks of gestation: 36 weeks Qualified Code(s): Z3A.36 - 36 weeks gestation of COMMENT: NIPT low risk, declind ntd and carrier, normal anatomy Charges/Coding Multi Select Codes Urinary/Genital Urinary/Genital CPT Codes: No Charge
--- NOTE | 2023-06-15 11:15 | NURSING ---
Follow up phone call questions asked by Queta Steel CNP, IBCLC at follow up visit. States she is feeling well and bleeding is minimal. Denies any headaches, visual disturbances, flu like symptoms, or baby blues. is nursing well, milk is in, he just gets sleepy. He is nursing every 2-3 hours and having wet and stool diapers. States she loved all of her nurses.
== END 2023-06-11 11:20 | disposition home or self-care (01) | DRG 807 ==
PROVIDERS: Admitting Provider Advanced Practice Midwife; PCP Family Medicine; Referring Provider Advanced Practice Midwife; Visit Provider Advanced Practice Midwife
DX: O13.4 Gestational [pregnancy-induced] hypertension without significant proteinuria, complicating childbirth (principal); O99.344 Other mental disorders complicating childbirth; F41.9 Anxiety disorder, unspecified; O70.1 Second degree perineal laceration during delivery; Z37.0 Single live birth; Z3A.37 37 weeks gestation of pregnancy; Z79.899 Other long term (current) drug therapy; Z87.891 Personal history of nicotine dependence
CPT/HCPCS: 59025; 59050; 82565; 82570; 84156; 84450; 84460; 84550; 85025; 85027; 86780; 86850; 86900; 86901; 99221; J7120; A4216; G0378; J2405

== ENCOUNTER → 2023-07-28 | Outpatient (CLI) | payer OTHER, SELFPAY ==
[2023-08-03 21:07] LABS: HPV APTIMA, High Risk Negative (Negative)
[2023-08-03 21:28] LABS: HPV Reflexed? YES, CHARGE PATIENT
== END | disposition home or self-care (01) ==
LOC: LABSPEC 17:10
PROVIDERS: PCP Family Medicine; Referring Provider Obstetrics & Gynecology; Visit Provider Obstetrics & Gynecology
DX: Z12.4 Encounter for screening for malignant neoplasm of cervix (principal)
CPT/HCPCS: 87624; 88175; G0145

== ENCOUNTER → 2023-11-09 | Outpatient (CLI) | payer OTHER, SELFPAY ==
[2023-11-09 11:21] LABS: AST(SGOT) 11 U/L (15-37); Alanine Aminotransfer ALT/SGPT 18 U/L (13-56); Cholesterol 184 mg/dL (200); High Density Lipoprotein 78 mg/dL; Triglycerides 90 mg/dL; Very Low Density Lipoprotein 18 mg/dL (5-40)
== END | disposition home or self-care (01) ==
LOC: MTLAB 07:27
PROVIDERS: PCP Family Medicine; Referring Provider Physician Assistant Medical; Visit Provider Physician Assistant Medical
DX: L70.0 Acne vulgaris (principal)
CPT/HCPCS: 36415; 80061; 84450; 84460

== ENCOUNTER → 2024-01-01 | Outpatient (CLI) | payer OTHER, SELFPAY ==
--- NOTE | 2024-01-01 15:56 | RAD_ITS ---
STUDY: X-RAY CHEST REASON FOR EXAM: Female, 28 years old. cough, fatigue TECHNIQUE: PA and lateral COMPARISON: April 29, 2014 FINDINGS: Mild interstitial thickening in both lower lobes more pronounced on the left possibly due to inflammatory disease. There is no demonstrated pleural abnormality. Normal size heart. Normal mediastinum and margret. Normal visualized pulmonary arteries. Normal visualized aortic arch and descending thoracic aorta. Normal visualized thoracic spine. Normal visualized ribs, clavicles, and shoulders. There is no demonstrated abnormality of the visualized soft tissue structures of the upper abdomen. RAD/Chest PA and Lateral IMPRESSION: Mild interstitial prominence most lower lobes more pronounced on the left possibly inflammatory. Electronically Signed: Everardo Brown MD at 17:00 EST ,
== END | disposition home or self-care (01) ==
PROVIDERS: PCP Family Medicine; Referring Provider Physician Assistant; Visit Provider Physician Assistant
DX: R05.9 Cough, unspecified (principal)
CPT/HCPCS: 71046

== ENCOUNTER → 2024-04-08 | Outpatient (CLI) | payer OTHER, SELFPAY ==
[2024-04-08 17:55] LABS: Absolute Lymphocyte Count 3.09 X10^3/uL (0.83-4.51); Absolute Neutrophil Count 5.6 X10^3/uL (2.0-7.7); Basophil# 0.07 X10^3/uL; Basophil% 0.7 % (0-1); Eosinophil# 0.21 X10^3/uL; Eosinophils% 2.2 % (0-5); Hematocrit 39.6 % (37-47); Hemoglobin 13.2 g/dL (12.0-15.0); Lymphocyte # 3.09 X10^3/ul (0.83-4.51); Lymphocyte % 32.6 % (19-41); Mean Corp Hgb Conc 33.3 g/dL (32-36); Mean Corpuscular Hgb 30.1 pg (27.0-32.0); Mean Corpuscular Volume 90.2 fL (81-99); Mean Platelet Vol. 9.7 fl (6.2-12.0); Monocyte# 0.53 X10^3/uL; Monocyte% 5.6 % (0-10); NRBC Flagged by Analyzer 0 % (0-5); Neutrophil # 5.55 X10^3/uL (2.7-7.7); Neutrophil % 58.6 % (47-70); Platelet Count 371 K/mm3 (150-450); RBC Distribution Width CV 12.2 % (11.6-14.6); RBC Distribution Width SD 40.3 fl (35.1-43.9); Red Blood Count 4.39 M/mm3 (4.2-5.4); White Blood Count 9.5 K/mm3 (4.4-11.0)
[2024-04-08 18:40] LABS: AST(SGOT) 13 U/L (15-37); Alanine Aminotransfer ALT/SGPT 17 U/L (13-56); Albumin, Serum 3.5 g/dL (3.2-5.0); Alkaline Phosphatase 41 U/L (45-117); Anion Gap 6 (5-15); BUN 21 mg/dL (7-18); BUN/Creat Ratio 24.2 RATIO (10-20); Calcium,Total 8.5 mg/dL (8.5-10.1); Chloride 110 mmol/L (98-107); Creatinine, Serum 0.87 mg/dL (0.55-1.02); EST Glomerular Filtration Rate 82 mL/min (>60); Est Glom Filt Rate - Afr Amer 99 mL/min (>60); Free T3 2.2 pg/mL (2.18-3.98); Globulin 3.5 g/dL (2.2-4.2); Glucose 91 mg/dL (74-106); Iron 76 ug/dL (50-170); Iron Binding Capacity,Total 366 ug/dL (250-450); PERCENT IRON SATURATION 20.8 % (15.0-55.0); Sodium Level 138 mmol/L (136-145); T4 Free Direct 1.24 ng/dL (0.76-1.46)
[2024-04-09 15:32] LABS: Vitamin B12 1109 pg/mL (211-911)
[2024-04-10 04:07] LABS: Thyroid Peroxidase AB < 9 IU/mL (0-34)
[2024-04-11 14:08] LABS: Anti-Nuclear Antibody Test Positive (.)
== END | disposition home or self-care (01) ==
LOC: MTLAB 16:47
PROVIDERS: PCP Family Medicine; Referring Provider Physician Assistant Medical; Visit Provider Physician Assistant Medical
DX: R53.83 Other fatigue (principal); L70.0 Acne vulgaris; Z79.899 Other long term (current) drug therapy; L20.89 Other atopic dermatitis
CPT/HCPCS: 36415; 80053; 82306; 82607; 83540; 83550; 84439; 84443; 84481; 85025; 86038; 86376

== ENCOUNTER 2024-06-24 07:39 | Emergency (ER) | payer OTHER, SELFPAY ==
[2024-06-24 07:41] VITALS: BP 124/77; PULSE 89; RESP 16; TEMP 36.9; O2SAT 95; BMI 27.0
--- NOTE | 2024-06-24 08:06 | EDS_ITS ---
HPI History of Present Illness Chief Complaint: Abd Pain Detail of Chief Complaint: Left lower quadrant abdominal pain Informant: patient and spouse/S.O. Onset/Context/Timing Onset: Days (Started approximately 3 days ago.) Context: Sudden Onset Timing: Continuous Quality: Pain Location: Left lower quadrant Current Severity: Moderate Maximum Severity: Severe Worsened by: Nothing specific Relieved by: Nothing Associated Symptoms Associated Symptoms: Nausea and vomiting and radiation through to the back Narrative Narrative: Patient is a 29-year-old G1, P1 Ab0 female whose last normal menstrual period was 2 weeks ago. She did a home test yesterday which was negative. She endorses history of endometriosis. Denies STI. Denies history of ectopic . She contacted her [employer] yesterday. [employer] recommended test. test was negative. Since the test was negative she did not present yesterday. She has persistent pain. She states has not had pain like this before. There is associated nausea and vomiting. She states she did have diarrhea a couple days ago. There was no blood or mucus. Pain has persisted. She denies fever or chills. Significant other states she has had sweats. She has no history of renal ureterolithiasis. She denies dysuria, frequency, urgency or hematuria. There is no history of trauma. There is no rash that she has noted. Prior similar symptoms: No Recent Illness/Hospitalization: No [facility] Medical History Bilateral pulmonary infiltrates Vaginal delivery Dysuria Urinary tract infection affecting Anxiety COVID-19 Home Medications ?Medication ?Instructions ?Recorded ?Last Taken ?Type drospirenone 3 mg-ethinyl 1 tab PO DAILY #84 tabs 08/2006/23/24 Rx estradiol 0.02 mg tablet (JAME (28)) spironolactone 100 mg tablet 100 mg PO QDAY 01/01/24 0 06/23/24 History fluoxetine 40 mg capsule 40 mg PO DAILY #30 caps 12/2206/23/24 Rx acetaminophen 325 mg tablet (Pain 650 mg PO Q4H PRN pa in 06/24/24 06/23/24 History Relief (acetaminophen)) dupilumab 300 mg/2 mL subcutaneous 300 mg subcut .COMP HOWARD 06/24/24 06/16/24 History syringe (Dupixent) ibuprofen 200 mg tablet (Advil) 400 mg PO Q6H PRN pain 06/24/24 06/23/24 History Allergy/AdvReac Type Severity Reaction Status Date / Time gluten Allergy Intermediate Abd Verified 06/24/24 07:42 cramps/diarrhea cefuroxime (From Ceftin) Allergy Rash Verified 06/24/24 07:42 coconut AdvReac Intermediate Rash Verified 06/24/24 07:42 Family History Grandfather Throat cancer Grandfather Alzheimer disease Dementia Grandmother Cancer Mother Breast cancer, Onset Age: 25 Endometriosis Father No problems noted. 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[email or web address] current occupational exposures/hazards: Yes pets and animals: Yes history of recent travel: No sexually active: Yes Smoking Status: Former smoker how long ago did patient quit smoking: quit a month ago since alcohol intake: never substance use type: does not use seatbelt use: always do you feel safe at home: Yes additional social history: Spouse - Marcoscarol Schmidt ROS ROS ED Constitutional Constitutional ED: Reports sweats; Denies chills, fever(s), subjective or weight loss ENT ENT ED: Denies rhinorrhea or sore throat Cardiovascular Cardiovascular: Denies chest pain or palpitations Respiratory/Chest Respiratory/Chest: Denies cough, dyspnea or dyspnea on exertion Gastrointestinal Gastrointestinal: Reports abdominal pain, diarrhea, nausea and vomiting; Denies constipation or melena Genitourinary Genitourinary ED: Reports LMP (females 10-50) Details: Comment: (2 weeks ago per patient. She is on control. She has not missed a dose or varied the dose by more than an hour.); Denies dysuria, hematuria or urinary frequency Musculoskeletal Musculoskeletal: Reports back pain; Denies arthralgias or myalgias Integumentary Denies abscess, Abrasions or rash Psychiatric Psychiatric: Denies anxiety or depression Endocrine Endocrinology: Denies cold intolerance or heat intolerance Hematologic/Lymphatic Hematologic/Lymphatic: Reports systems reviewed and no addt'l complaints, except as documented EXAM Physical Exam Const Vital Signs: 06/24/24 07:41 06/24/24 10:00 06/24/24 12:00 Temperature 98.5 F 98.9 F Temperature Source Oral Oral Pulse Rate 89 78 81 Respiratory Rate 16 16 18 Blood Pressure 124/77 H 145/78 H 129/78 H Blood Pressure Mean 92 100 95 Pulse Ox 95 98 99 Oxygen Delivery Method Room Air Room Air Positive well nourished and well developed General Appearance ED: well developed and pallor; Negative for cyanotic, diaphoretic or NAD HEENT Reports moist mucous membranes HEENT Narrative: Has atraumatic normocephalic. Ears normal. Nares patent. Eyes PERRL and EOMs intact bilaterally General Eye ED: Negative for pale conjunctiva or scleral icterus Neck no lymphadenopathy, supple and no JVD Resp normal respiratory effort and clear to auscultation bilaterally Cardio regular rate, regular rhythm, S1 normal heart sound, S2 normal heart sound and no murmurs GI normal to inspection, nondistended, normoactive bowel sounds, non-distended and no masses; Negative for non-tender Palpation: soft and tender LLQ; Negative for guarding or rebound tenderness present Narrative: External genitalia normal. Bimanual exam is remarkable for tenderness with pressure against the bladder. There is no cervical motion tenderness. There is no enlargement of the uterus. No appreciable mass or fullness in the right or left adnexa. There is no vaginal discharge. Cervix appears normal. Back/Spine no CVA tenderness Extremity normal to inspection General Extremety ED: Negative for edema General Extremity: Negative for edema Neuro oriented x3 and CN's II-XII intact bilaterally Sensorium / Orientation: alert Psych mental status grossly normal Skin no rashes or lesions noted, no wounds and skin turgor normal General Skin Exam: elasticity normal and pallor; Negative for jaundice MDM MDM MDM Narrative Medical decision making narrative: Differential diagnosis would include ovarian torsion, endometriosis, ovarian cyst, ruptured ovarian cyst, doubt ectopic with negative test yesterday, doubt STI since she has no vaginal discharge or dyspareunia. And need to consider atypical presentation for ureterolithiasis. History & Record Review Additional record(s) reviewed:: Prior inpatient record (Operative note from June 09, 2023, note authored by Korin Villalobos.), Prior ED visit (Most recent ER visit was December 2022 for issues related to second trimester . This note was authored by Dr. Everardo Geronimo. February [address] Dietrich for chest pain.) and Prior labs Lab Data Attestation: I reviewed the patient's lab results. Lab results narrative: CBC is normal. test is normal Labs: Laboratory Results - last 24 hr 06/24/24 06/24/24 07:52 09:13 WBC 6.6 RBC 4.52 Hgb 13.9 Hct 40.9 MCV 90.5 MCH 30.8 MCHC 34.0 RDW Std Deviation 40.2 RDW Coeff of Marley 12.2 Plt Count 345 MPV 9.4 Immature Gran % (Auto) 0.300 Neut % (Auto) 49.6 Lymph % (Auto) 38.8 Campbell % (Auto) 7.1 Eos % (Auto) 3.3 Baso % (Auto) 0.9 Absolute Neuts (auto) 3.3 Absolute Lymphs (auto) 2.57 Nucleated RBC % 0 Serum , Qual NEGATIVE Urine Color Yellow Urine Clarity Clear Urine pH 6.0 Ur Specific [place] 1.020 Urine Protein 15 H Urine Glucose (UA) Normal Urine Ketones Negative Urine Occult Blood 50 H Urine Nitrite Negative Urine Bilirubin Negative Urine Urobilinogen Normal Ur Leukocyte Esterase 25 H Urine RBC 0 SEEN Urine WBC 0-5 SEEN Ur Squamous Epith Cells 0-5 SEEN Urine Bacteria RARE Urine Mucus 0 SEEN Urine macro was positive for occult blood and leukoesterase and negative for nitrites. Micro reveals 0 RBCs and 0-5 WBCs and 0-5 squamous epithelial cells. Rare bacteria. Since patient has no symptoms there is no indication for treatment. The cause of her left lower quad abdominal pain is unknown. Since she does have significant pain will obtain ultrasound to assess for torsion. Radiography Diagnostic Testing: Clinical Impression(s) from Imaging Studies Transvaginal US 06/24/24 11:04 IMPRESSION: 1. No definite acute abnormality. Note venous waveforms not confidently identified in either ovary, however LEFT ovarian torsion is considered unlikely given preserved low resistance arterial waveforms and normal ovarian size/morphology. 2. Questionable 2 mm endocervical polyp versus mucosal fold. Trace nonspecific endocervical fluid. 3. Additional description as above. Reading Location: [facility] Ultrasound report was read. Patient be discharged to home. Discharge Plan Triage Chief Complaint: Abd Pain Other Complaint: Vag Bleeding ED Provider: Mau Logan Dx/Rx/DC Orders Clinical Impression: Pelvic pain, Hx of endometriosis Instructions: ED Pain, Acute, Uncertain Cause Prescriptions: No Action spironolactone 100 mg tablet 100 mg PO QDAY Dupixent Syringe 300 mg/2 mL syringe 300 mg subcut .COMPLEX Rx Instructions: 300 mg subcutaneously qoweek; ibuprofen [Advil] 200 mg tablet 400 mg PO Q6H PRN (Reason: pain) acetaminophen [Pain Relief (acetaminophen)] 325 mg tablet 650 mg PO Q4H PRN (Reason: pain) drospirenone-ethinyl estradiol [JAME (28)] 3-0.02 mg tablet 1 tab PO DAILY Qty: 84 4RF fluoxetine 40 mg capsule 40 mg PO DAILY Qty: 30 12RF Primary Care Provider: Bella Ma Referrals: Bella Ma DO [Primary Care Provider] - Berkley Gibbs MD [Med Staff - Active Staff] - 3-5 Days if not improving Activity Restrictions/Additional Instructions: Recommend taking either 4 ibuprofen tablets every 8 hours or 2 Aleve tablets every 12 hours for the next 3 days. Print Language: Korean Disposition Disposition: Home, Self Care
[2024-06-24 08:14] LABS: Absolute Lymphocyte Count 2.57 X10^3/uL (0.83-4.51); Absolute Neutrophil Count 3.3 X10^3/uL (2.0-7.7); Basophil# 0.06 X10^3/uL; Basophil% 0.9 % (0-1); Eosinophil# 0.22 X10^3/uL; Eosinophils% 3.3 % (0-5); Hematocrit 40.9 % (37-47); Hemoglobin 13.9 g/dL (12.0-15.0); Lymphocyte # 2.57 X10^3/ul (0.83-4.51); Lymphocyte % 38.8 % (19-41); Mean Corpuscular Hgb 30.8 pg (27.0-32.0); Mean Corpuscular Volume 90.5 fL (81-99); Mean Platelet Vol. 9.4 fl (6.2-12.0); Monocyte# 0.47 X10^3/uL; Monocyte% 7.1 % (0-10); NRBC Flagged by Analyzer 0 % (0-5); Neutrophil # 3.29 X10^3/uL (2.7-7.7); Neutrophil % 49.6 % (47-70); Platelet Count 345 K/mm3 (150-450); RBC Distribution Width CV 12.2 % (11.6-14.6); RBC Distribution Width SD 40.2 fl (35.1-43.9); Red Blood Count 4.52 M/mm3 (4.2-5.4); White Blood Count 6.6 K/mm3 (4.4-11.0)
[2024-06-24] MEDS: Ketorolac 15 MG/ML Vial IV (08:25)
[2024-06-24] MEDS: Ondansetron 4 MG/2 ML Vial IV (08:25)
[2024-06-24 08:30] LABS: Internal QC Validated? YES +Cl - CLEAR BKGD; Pregnancy, Serum, hCG Quali. NEGATIVE Negative
[2024-06-24 09:22] LABS: Mucous, Urine 0 SEEN /hpf (<or=2+); Red Blood Cells-Urine 0 SEEN /hpf (0-5)
[2024-06-24 09:27] LABS: Color, Urine Yellow (Yellow); Glucose, Dipstick Normal (Normal); Ketone-Dipstick Negative (Negative); Leukocyte Esterase-Dipstick 25 /ul (Negative); Nitrite-Dipstick Negative (Negative); Occult Blood-Urine 50 /ul (Negative); Protein-Dipstick 15 mg/dl (Negative); Urine Bilirubin Dipstick Negative (Negative); Urine Clarity Clear (Clear); Urine Urobilinogen Normal (Normal)
[2024-06-24 10:00] VITALS: BP 145/78; PULSE 78; RESP 16; TEMP 37.2; O2SAT 98
[2024-06-24 11:00] LABS: Bacteria RARE /hpf (None Seen); Squamous Epithelial Cells - UA 0-5 SEEN /hpf (5-10); White Blood Cells 0-5 SEEN /hpf (0-5)
--- NOTE | 2024-06-24 11:04 | US_ITS ---
PROCEDURE: TRANSVAGINAL NON- (USTVAG), 06/24/2024 REASON FOR EXAM: LEFT LOWER QUADRANT ABDOMINAL PAIN CHECK FOR TORSI TECHNIQUE: Grayscale, color Doppler, and spectral Doppler transvaginal pelvic ultrasound was performed. COMPARISON: 06/08/2023 FINDINGS: Uterus: 7.9 x 5.0 x 3.1 cm, Anteverted. Unremarkable echotexture. Endometrium: 3 mm, echogenic secretory appearance. Cervix: Question a tiny 2 mm echogenic polyp versus mucosal fold. Trace nonspecific endocervical fluid. Right ovary: 2.6 x 2.2 x 1.5 cm (estimated volume 4.3 mL). Unremarkable. Normal arterial waveforms. Left ovary: 3.5 x 2.5 x 1.6 cm (estimated volume 7.1 mL) unremarkable. Normal low resistance arterial waveforms. Free fluid: None visualized. Other: Prominent parauterine vasculature is nonspecific. US/Transvaginal Non- IMPRESSION: 1. No definite acute abnormality. Note venous waveforms not confidently identi fied in either ovary, however LEFT ovarian torsion is considered unlikely given preserved low resistance arterial waveforms and no rmal ovarian size/morphology. 2. Questionable 2 mm endocervical polyp versus mucosal fold. Trace nonspecific endocervical fluid. 3. Additional description as above. Reading Location: [id number]
[2024-06-24 12:00] VITALS: BP 129/78; PULSE 81; RESP 18; O2SAT 99
[2024-06-24] MEDS: Ibuprofen 600 MG Tablet PO (12:41)
[2024-06-24 13:00] VITALS: BP 125/74; PULSE 84; RESP 16; TEMP 36.9; O2SAT 100
== END 2024-06-24 13:01 | disposition home or self-care (01) ==
PROVIDERS: Emergency Provider Emergency Medicine; PCP Family Medicine; Visit Provider Emergency Medicine
DX: R10.32 Left lower quadrant pain (principal); N93.9 Abnormal uterine and vaginal bleeding, unspecified; Z87.891 Personal history of nicotine dependence; F41.9 Anxiety disorder, unspecified; Z79.899 Other long term (current) drug therapy; R10.2 Pelvic and perineal pain; Z87.42 Personal history of other diseases of the female genital tract
CPT/HCPCS: 76830; 81001; 84703; 85025; 93976; 96374; 96375; 99284; A4216; J2405

== ENCOUNTER → 2024-06-28 | Outpatient (CLI) | payer OTHER, SELFPAY ==
[2024-07-01 22:06] LABS: Chlamydia By Nucleic Acid AMP Negative (Negative); Gonococcus By Nucleic Acid AMP Negative (Negative)
== END | disposition home or self-care (01) ==
LOC: LABSPEC 15:11
PROVIDERS: PCP Family Medicine; Referring Provider Advanced Practice Midwife; Visit Provider Advanced Practice Midwife
DX: R10.2 Pelvic and perineal pain (principal); Z20.2 Contact with and (suspected) exposure to infections with a predominantly sexual mode of transmission; N89.8 Other specified noninflammatory disorders of vagina; Z12.4 Encounter for screening for malignant neoplasm of cervix
CPT/HCPCS: 87070; 87086; 87205; 87491; 87591; 88175; G0145

== ENCOUNTER 2024-08-14 11:50 | Observation (INO) | payer OTHER, SELFPAY ==
[2024-08-14] VITALS (14 sets, daily range): BP systolic 98–154; BP diastolic 57–104; PULSE 60–86; RESP 14–24; TEMP 36.4–37; O2SAT 94–100; BMI 26.6; BMI 26.1
--- NOTE | 2024-08-14 11:55 | CT_ITS ---
PROCEDURE: STROKE BRAIN/HEAD WITHOUT CONT, 08/14/2024 REASON FOR EXAM: NEURO DEFICIT, ACUTE, STROKE SUSPECTED COMPARISON: None TECHNIQUE: CT head was performed without IV contrast. Multiplanar reformats were generated. RADIATION DOSE SUMMARY: CTDlvol: 44.99 mGy DLP: 812.98 mGycm One or more dose reduction techniques were used (e.g., Automated exposure control, adjustment of the mA and/or kV according to patient size, use of iterative reconstruction technique). FINDINGS: Cerebrum: Unremarkable. Cerebellum/brainstem: Unremarkable. Note slight limitation due to beam hardening artifact. Ventricles/extra-axial spaces: Unremarkable. Paranasal sinuses/mastoid air cells: Unremarkable. Scalp/calvarium: Unremarkable. Other: Unremarkable. CT/STROKE Brain/Head without Cont IMPRESSION: No visible acute intracranial findings. If there is persistent concern for an a cute intracranial process, recommend MRI. Red Alert: As above The critical information above was relayed directly by me by telephone to Ricky Mccarty on 08/14/2024 at 10:56 am. Reading Location: [id number]
--- NOTE | 2024-08-14 11:57 | CT_ITS ---
PROCEDURE: STROKE CTA HEAD AND NECK W/CON 08/14/2024 REASON FOR EXAM: NEURO DEFICIT, ACUTE, STROKE SUSPECTED TECHNIQUE: CTA head and neck was performed with IV contrast. Multiplanar reformats as well as MIP and 3D reconstructions were generated. IV contrast: Isovue 370 VOLUME: 100ML RADIATION DOSE SUMMARY: CTDlvol: 16.61+ 17.10 mGy DLP: 696.73 mGycm One or more dose reduction techniques were used (e.g., Automated exposure control, adjustment of the mA and/or kV according to patient size, use of iterative reconstruction technique). COMPARISON: None. FINDINGS: Note the exam is optimized for evaluation of the major cervical/intracranial arterial vasculature rather than the remaining soft tissues. CTA NECK: Great vessel origins: Patent. RIGHT carotid system: Patent. LEFT carotid system: Patent. RIGHT Vertebral: Patent. LEFT Vertebral: Patent. Slight LEFT dominance. Other: Straightening normal cervical lordosis could be positional. CTA HEAD: Slight limitation related to venous contamination. Anterior circulation: Patent. Posterior circulation: Patent. Bilateral AICA not well seen. Aneurysms: None identified. Venous structures: Grossly unremarkable within limits of nondedicated technique. CT/STROKE CTA Head AND Neck W/Con IMPRESSION: 1. No high-grade stenosis or large vessel occlusion identified. 2. Additional description as above. Reading Location: [id number]
[2024-08-14 12:36] LABS: Bedside Glucose 93 mg/dL (74-106)
--- NOTE | 2024-08-14 12:41 | ED.VIS.STROK ---
HPI History of Present Illness Chief Complaint: Neuro S/Sx Narrative Narrative: 29-year-old female with no significant past medical history presents with headache, right facial droop, and right-sided numbness of her arm and leg that worsened today. She states she was last known well at 10 PM yesterday evening. That is when her symptoms began. No exacerbating or alleviating factors, but she states that she has a headache, and the right side of her arms and legs feels different than the left. PFSH PFSH Medical History Bilateral pulmonary infiltrates Vaginal delivery Dysuria Urinary tract infection affecting Anxiety COVID-19 Home Medications ?Medication ?Instructions ?Recorded ?Last Taken ?Type spironolactone 100 mg tablet 100 mg PO QDAY 01/01/24 08/13/24 History dupilumab 300 mg/2 mL subcutaneous 300 mg subcut .COMPLEX 06/24/24 08/10/24 History syringe (Dupixent) drospirenone 3 mg-ethinyl 1 tab PO DAILY #84 tabs 08/02/24 08/13/24 Rx estradiol 0.02 mg tablet (JAME (28)) multivitamin 1 tab PO QDAY 08/02/24 08/13/24 History fluoxetine 40 mg capsule 40 mg PO DAILY #30 caps 08/12/24 08/13/24 Rx Allergy/AdvReac Type Severity Reaction Status Date / Time gluten Allergy Intermediate Abd Verified 08/02/24 11:17 cramps/diarrhea cefuroxime (From Ceftin) Allergy Rash Verified 08/02/24 11:17 coconut AdvReac Intermediate Rash Verified 08/02/24 11:17 Family History Grandfather Throat cancer Grandfather Alzheimer disease Dementia Grandmother Cancer Mother Breast cancer, Onset Age: 25 Endometriosis Father No problems noted. 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 No fevers or chills, no loss of vision. No exacerbating or alleviating factors. EXAM Physical Exam Narrative Exam Narrative: Afebrile. Vital signs noted. Nontoxic appearing. Cardiovascular examination regular rate and rhythm. Lungs are clear to auscultation bilaterally. Abdomen is soft and nontender with normoactive bowel sounds. Right-sided facial droop, minimal, with forehead involvement, and inability to raise right eyebrow, but can close right eye. Mild conjunctival injection right conjunctiva. PERRL, EOMI. No pedal edema. Const Vital Signs: 08/14/24 11:59 08/14/24 12:00 08/14/24 12:13 Temperature 97.6 F L Temperature Source Temporal Pulse Rate 86 86 Respiratory Rate 16 16 Blood Pressure 154/104 H 154/104 H Blood Pressure Mean 120 120 Pulse Ox 99 99 Oxygen Delivery Method Room Air Room Air Room Air Oxygen Flow Rate (L/min) 08/14/24 12:15 08/14/24 12:30 08/14/24 13:00 Temperature Temperature Source Pulse Rate 83 76 73 Respiratory Rate 18 21 H 24 H Blood Pressure 137/81 H 135/88 H 132/85 H Blood Pressure Mean 99 103 100 Pulse Ox 99 97 96 Oxygen Delivery Method Room Air Room Air Room Air Oxygen Flow Rate (L/min) 08/14/24 13:30 08/14/24 14:00 08/14/24 14:05 Temperature Temperature Source Pulse Rate 80 60 Respiratory Rate 16 17 Blood Pressure 126/83 H 116/74 Blood Pressure Mean 97 88 Pulse Ox 98 100 99 Oxygen Delivery Method Room Air Room Air Nasal Cannula Oxygen Flow Rate (L/min) 2 08/14/24 14:05 Temperature 98.6 F Temperature Source Pulse Rate 63 Respiratory Rate 15 Blood Pressure 116/74 Blood Pressure Mean 88 Pulse Ox 99 Oxygen Delivery Method Oxygen Flow Rate (L/min) MDM MDM MDM Narrative Medical decision making narrative: Differential diagnosis includes but not limited to TIA versus stroke versus atypical migraine/complex migraine. Jain's palsy is also in the differential diagnosis. Stroke team was asked debated from triage. I discussed patient with the neurologist. Given the patient's mild symptoms, non-debilitating, was not felt TNKase indicated. Lbjix-zn-mood spine 3. Although neurology states that this most likely may be complex migraine, if the CT and CTA are negative, she should be observed for further stroke workup/rule out. I reviewed her laboratory work, she has normal white count of 7.3, hemoglobin 13.8, hematocrit 39.9, platelet count 315, coagulation studies are negative. Bftne-ea-cymc glucose 93. BMP still pending. I reviewed the radiology report of the CT of the brain and received a call from the radiologist as well, there is no acute hemorrhage. Regarding the CTA, I reviewed the radiology report and there is no large vessel occlusion. Once again in discussion with the teleneurologist Dr. Mantilla, it was felt that she should be observed for further stroke workup. Given the patient's right eye injection, she states that she has been having headaches all week but she thought it was secondary to her dieting and removing sugar from her diet. She has had some tearing of her right eye as well as rhinorrhea out of the right side. This makes me more suspicious for cluster headache. While she will be given Compazine and Benadryl, she will also be placed on oxygen. EKG was obtained as well and interpreted by myself independently as sinus bradycardia at 59 bpm without ectopy or acute ST changes. Patient discussed with Dr. Mehta for observation on the PCU. Patient is in stable condition. History & Record Review Discussion w/independent historian: Patient Lab Data Attestation: I reviewed the patient's lab results. Labs: Laboratory Results - last 24 hr 08/14/24 08/14/24 12:18 12:45 WBC 7.3 RBC 4.44 Hgb 13.8 Hct 39.9 MCV 89.9 MCH 31.1 MCHC 34.6 RDW Std Deviation 38.6 RDW Coeff of Marley 11.9 Plt Count 315 MPV 9.5 Immature Gran % (Auto) 0.100 Neut % (Auto) 59.3 Lymph % (Auto) 31.5 [place] % (Auto) 6.0 Eos % (Auto) 2.1 Baso % (Auto) 1.0 Absolute Neuts (auto) 4.3 Absolute Lymphs (auto) 2.29 Nucleated RBC % 0 PT 13.5 INR 1.0 APTT 24.6 POC Glucose 93 Radiography Diagnostic Testing: Clinical Impression(s) from Imaging Studies Brain CT 08/14/24 11:55 IMPRESSION: No visible acute intracranial findings. If there is persistent concern for an acute intracranial process, recommend MRI. Red Alert: As above The critical information above was relayed directly by me by telephone to Ricky Gaines on 08/14/2024 at 10:56 am. Reading Location: [facility] Head/Neck CTA 08/14/24 11:57 IMPRESSION: 1. No high-grade stenosis or large vessel occlusion identified. 2. Additional description as above. Reading Location: [id number] Management Discussion w/another healthcare provider: Hospitalist (Dr. Mehta) and Sales Officer (Dr. Mantilla, teleneurology) Discharge Plan Dx/Rx/DC Orders Clinical Impression: Right sided numbness, Facial droop, Cluster headache Disposition Disposition: Acute Care Hospital [facility] NIHSS NIHSS 1a. Level of Consciousness: 0 - Alert; keenly responsive 1b. LOC Questions: 0 - Answers BOTH questions correctly 1c. LOC Commands: 0 - Performs BOTH tasks correctly 2. Best Gaze: 0 - Normal 3. Visual: 0 - No visual loss 4. Facial Palsy: 1 - Minor paralysis (flattened nasolabial fold, asymmetry on smiling) (Right) 5a. Left Arm: 0 - No drift; arm holds 90 (or 45) degrees for full 10 seconds 5b. Right Arm: 0 - No drift; arm holds 90 (or 45) degrees for full 10 seconds 6a. Left Le - No drift; leg holds 30-degree position for full 5 seconds 6b. Right Le - No drift; leg holds 30-degree position for full 5 seconds 7. Limb Ataxia: 0 - Absent 8. Sensory: 1 - Trea-hv-eqahfjbr sensory loss; 9. Best Language: 0 - No aphasia; normal 10. Dysarthria: 0 - Normal 11. Extinction and Inattention: 0 - No abnormality Total: 2 Stroke Questions Stroke Team Activated: Yes Reviewed Inclusion/Exclusion criteria: Yes Was Patient considered for Endovascular Intervention?: No IV Thrombolytic Administered: No No contraindications from thrombolytic administration: No (Mild, minor symptoms, non-debilitating)
[2024-08-14 13:02] LABS: Absolute Lymphocyte Count 2.29 X10^3/uL (0.83-4.51); Absolute Neutrophil Count 4.3 X10^3/uL (2.0-7.7); Basophil# 0.07 X10^3/uL; Eosinophil# 0.15 X10^3/uL; Eosinophils% 2.1 % (0-5); Hematocrit 39.9 % (37-47); Hemoglobin 13.8 g/dL (12.0-15.0); Lymphocyte # 2.29 X10^3/ul (0.83-4.51); Lymphocyte % 31.5 % (19-41); Mean Corp Hgb Conc 34.6 g/dL (32-36); Mean Corpuscular Hgb 31.1 pg (27.0-32.0); Mean Corpuscular Volume 89.9 fL (81-99); Mean Platelet Vol. 9.5 fl (6.2-12.0); Monocyte# 0.44 X10^3/uL; NRBC Flagged by Analyzer 0 % (0-5); Neutrophil # 4.32 X10^3/uL (2.7-7.7); Neutrophil % 59.3 % (47-70); Platelet Count 315 K/mm3 (150-450); RBC Distribution Width CV 11.9 % (11.6-14.6); RBC Distribution Width SD 38.6 fl (35.1-43.9); Red Blood Count 4.44 M/mm3 (4.2-5.4); White Blood Count 7.3 K/mm3 (4.4-11.0)
[2024-08-14 13:14] LABS: Prothrombin Time (Protime)PT. 13.5 SECONDS (11.7-14.9)
[2024-08-14 13:15] LABS: Partial Thromboplast Time 24.6 Seconds (24.1-36.2)
[2024-08-14] MEDS: DiphenhydrAMINE 50 MG/ML Syringe 25 MG IV (13:58)
[2024-08-14] MEDS: 0.9% Normal Saline (1000mL) 1,000 ML 999 ML IV (13:58)
[2024-08-14] MEDS: proCHLORPERazine 10 MG/2 ML Vial IV (13:59)
[2024-08-14 14:16] LABS: Anion Gap 11 (5-15); BUN 19 mg/dL (4-19); Calcium,Total 8.9 mg/dL (7.6-11.0); Carbon Dioxide 21.5 mmol/L (21.0-32.0); Chloride 103 mmol/L (98-108); Creatinine, Serum 0.84 mg/dL (0.70-1.20); EST Glomerular Filtration Rate 96 (>60); Estimated Creatinine Clearance 105.69 ml/min (50-250); Glucose 98 mg/dL (70-99); Sodium Level 136 mmol/L (133-145); Troponin T High Sensitivity < 6 ng/L (<=14)
--- NOTE | 2024-08-14 14:18 | PCM.HP.STD ---
HPI - General General Date of Admission: 08/14/24 Date of Service: 08/14/24 Chief Complaint: R arm numbness and facial droop and headache HPI Narrative ARIES PARISI, is a 29-year-old female with a history of anxiety presented to [facility] ED 08/14/2024 with a headache, right facial droop, right-sided numbness of her arm and leg with last known well 10 PM yesterday evening when her symptoms began. Patient was a stroke team and teleneurology evaluated, they felt was most likely a complex migraine but that they would recommend further admission for workup for stroke rule out. In the ED temp 97.6, heart rate 86, blood pressure 154/104, respiratory rate 16, pulse ox 99% on room air. CT head and CTA head and neck unremarkable, CBC with no abnormalities. Hospitalist contacted for admission for stroke rule out. Patient evaluated at bedside. She reports that she had a headache when she went to bed last night and then today at some time when she was at work she noticed that her right arm felt like it was asleep and she had the right facial droop. Coming in she is presently denying that she ever had any sensory changes in her right leg though mother reports she had endorsed this earlier. Right now arm feels back to normal, still slight facial droop, still has right-sided headache and runny nose on the right side with some conjunctival injection which she thought was allergies. Denies any nausea or vomiting, no other numbness weakness or tingling. No other acute complaints [facility] Medical History Bilateral pulmonary infiltrates Vaginal delivery Dysuria Urinary tract infection affecting Anxiety COVID-19 Home Medications ?Medication ?Instructions ?Recorded ?Last Taken ?Type spironolactone 100 mg tablet 100 mg PO QDAY 01/01/24 08/13/24 History dupilumab 300 mg/2 mL subcutaneous 300 mg subcut .COMPLEX 06/24/24 08/10/24 History syringe (Dupixent) drospirenone 3 mg-ethinyl 1 tab PO DAILY #84 tabs 08/02/24 08/13/24 Rx estradiol 0.02 mg tablet (JAME (28)) multivitamin 1 tab PO QDAY 08/02/24 08/13/24 History fluoxetine 40 mg capsule 40 mg PO DAILY #30 caps 08/12/24 08/13/24 Rx Allergy/AdvReac Type Severity Reaction Status Date / Time gluten Allergy Intermediate Abd Verified 08/02/24 11:17 cramps/diarrhea cefuroxime (From Ceftin) Allergy Rash Verified 08/02/24 11:17 coconut AdvReac Intermediate Rash Verified 08/02/24 11:17 Family History Grandfather Throat cancer Grandfather Alzheimer disease Dementia Grandmother Cancer Mother Breast cancer, Onset Age: 25 Endometriosis Father No problems noted. 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/hazards: Yes pets and animals: Yes history of recent travel: No sexually active: Yes Smoking Status: Former smoker Electronic Cigarette Use: with nicotine alcohol intake: never substance use type: does not use caffeine: Yes what type of physical activity do you participate in: walking and weight training frequency: 1-2 times per week seatbelt use: always do you feel safe at home: Yes additional social history: Spouse - Marcos MARQUES Narrative General: Denies fever/chills HENT: Right-sided headache, some right sided rhinorrhea, denies sore throat EYES: [place] like maybe she once had some double vision earlier but not present Resp: Denies cough, denies shortness of breath Cardiac: Denies chest pain GI: Denies abdominal pain, denies changes in bowel, denies nausea/vomiting : Denies changes in urination Extremity: Denies swelling MSK: Denies weakness Neuro: Had some right upper extremity sensory changes that resolved Heme: Denies any bleeding or bruising Skin: Denies rashes Psychiatric: No complaints voiced Vital Signs Vital Signs Vital Signs: 08/14/24 11:59 08/14/24 12:00 08/14/24 12:13 Temperature 97.6 F L Temperature Source Temporal Pulse Rate 86 86 Respiratory Rate 16 16 Blood Pressure 154/104 H 154/104 H Blood Pressure Mean 120 120 Pulse Ox 99 99 Oxygen Delivery Method Room Air Room Air Room Air Oxygen Flow Rate (L/min) 08/14/24 12:15 08/14/24 12:30 08/14/24 13:00 Temperature Temperature Source Pulse Rate 83 76 73 Respiratory Rate 18 21 H 24 H Blood Pressure 137/81 H 135/88 H 132/85 H Blood Pressure Mean 99 103 100 Pulse Ox 99 97 96 Oxygen Delivery Method Room Air Room Air Room Air Oxygen Flow Rate (L/min) 08/14/24 13:30 08/14/24 14:00 08/14/24 14:05 Temperature Temperature Source Pulse Rate 80 60 Respiratory Rate 16 17 Blood Pressure 126/83 H 116/74 Blood Pressure Mean 97 88 Pulse Ox 98 100 99 Oxygen Delivery Method Room Air Room Air Nasal Cannula Oxygen Flow Rate (L/min) 2 08/14/24 14:05 Temperature 98.6 F Temperature Source Pulse Rate 63 Respiratory Rate 15 Blood Pressure 116/74 Blood Pressure Mean 88 Pulse Ox 99 Oxygen Delivery Method Oxygen Flow Rate (L/min) Weight Weight: 76.975 kg Body Mass Index (BMI) 26.6 Physical Exam Narrative General: Alert, oriented, appears to not feel well HEENT: Atraumatic, normocephalic Eyes: Anicteric, has some conjunctival injection right greater than left, extraocular movements intact, pupils equal Neck: Supple Respiratory: Clear to auscultation bilaterally, normal respiratory effort Cardiovascular: Regular rate and rhythm GI: Soft, nontender, nondistended Extremities: No edema Musculoskeletal: Strength 5 out of 5 in right upper extremity, 5 out of 5 left upper extremity, 5 out of 5 right lower extremity, 5 out of 5 left lower extremity Neuro: Does have decreased movement of right eye eyebrow and forehead otherwise facial movements symmetric, cranial nerves II through XII intact Skin: No rashes appreciated Psych: Cooperative Results Lab / Micro Data 08/14/24 12:45 08/14/24 13:34 Labs: Laboratory Results - last 24 hr 08/14/24 12:18: POC Glucose 93 08/14/24 12:45: WBC 7.3, RBC 4.44, Hgb 13.8, Hct 39.9, MCV 89.9, MCH 31.1, MCHC 34.6, RDW Std Deviation 38.6, RDW Coeff of Marley 11.9, Plt Count 315, MPV 9.5, Immature Gran % (Auto) 0.100, Neut % (Auto) 59.3, Lymph % (Auto) 31.5, [place] % (Auto) 6.0, Eos % (Auto) 2.1, Baso % (Auto) 1.0, Absolute Neuts (auto) 4.3, Absolute Lymphs (auto) 2.29, Nucleated RBC % 0, PT 13.5, INR 1.0, APTT 24.6 08/14/24 13:34: Sodium 136, Potassium 4.0, Chloride 103, Carbon Dioxide 21.5, Anion Gap 11, BUN 19, Creatinine 0.84, Estim Creat Clear Calc 105.69, Est GFR (MDRD) Non-Af 96, BUN/Creatinine Ratio 23.0 H, Glucose 98, Calcium 8.9, Troponin T High Sens < 6 Imaging Radiology Impression Brain CT 08/14/24 11:55 IMPRESSION: No visible acute intracranial findings. If there is persistent concern for an acute intracranial process, recommend MRI. Red Alert: As above The critical information above was relayed directly by me by telephone to Ricky Gaines on 08/14/2024 at 10:56 am. Reading Location: [facility] Head/Neck CTA 08/14/24 11:57 IMPRESSION: 1. No high-grade stenosis or large vessel occlusion identified. 2. Additional description as above. Reading Location: [facility] Assessment & Plan Assessment/Plan (1) Facial droop: (2) Right sided numbness: PLAN: Plan # Headache, right facial droop, right arm paresthesias -Still has some decreased movement of right forehead and eyebrow otherwise facial movement symmetric, sensory changes have improved -This may be complex migraine but will admit to rule out stroke, also symptoms that may be consistent with cluster headache -Admit to tele -CT head w/ no acute abnormalities -CTA head and neck no LVO or overt abnormalities -MRI ordered -NIH q4hr -asa, statin -Echo w/ bubble study -PT/OT/Speech eval -Teleneuro consult ordered -Hold BP medications to allow for permissive hypertension for 24 hours unless SBP greater than 220 or DBP greater than 120 or until stroke is ruled out # History of anxiety - Continue Prozac #DVT ppx: SCDs Zenaida Mehta, MD Charges/Coding Visit Charges Inpatient E&M: 82549 Init Hosp L1
--- NOTE | 2024-08-14 14:25 | MRI_ITS ---
PROCEDURE: BRAIN WITHOUT CONTRAST 08/14/2024 REASON FOR EXAM: TIA/CVA R/O TECHNIQUE: BRAIN WITHOUT CONTRAST Multiplanar and multisequence images were obtained. COMPARISON: None FINDINGS: No restricted diffusion on DWI to suggest acute infarct. There is no intracranial hemorrhage, mass effect, hydrocephalus, or significant midline shift. Basal cisterns are not effaced. The visualized paranasal sinuses and mastoids appear relatively well-aerated. Flow voids of the major intracranial vessels are preserved. The pituitary fossa is grossly unremarkable. Marrow signal in the upper cervical vertebrae appear intact. MRI/Brain without Contrast IMPRESSION: No acute infarction or intracranial hemorrhage. Reading Location: [id number]
--- NOTE | 2024-08-14 14:25 | ECHOD_ITS ---
Reason For Study Reason For Study: TIA/CVA Procedure This was a 2D Doppler, Color Flow transthoracic echocardiogram. Exam performed portable in ED. Left Ventricle Normal LV size. Left ventricular systolic function is normal. The left ventricular ejection fraction is 65 %. No regional wall motion abnormalities noted. Right Ventricle Normal RV size. Normal systolic function. Atria Normal left atrium. Normal right atrium. Bubble contrast study is negative for PFO/ASD. Mitral Valve Normal mitral valve. Tricuspid Valve Normal tricuspid valve. Aortic Valve Trisinus/trileaflet aortic valve. Pulmonic Valve Normal pulmonic valve. Great Vessels Normal aortic root. Pericardium/Pleural No pericardial effusion. Medication Performed a rapid injection of agitated mix of 9 cc saline and 1cc air to assess for atrial septal defect. MMode/2D Measurements & Calculations LVIDd: 4.6 cm IVSd: 0.80 cm LVOT diam: 2.0 cm LVIDs: 2.7 cm LVPWd: 0.88 cm RVDd: 3.2 cm FS: 40.6 % LVOT area: 3.0 cm2 asc Aorta Diam: 2.6 cm LAV(MOD-bp): 26.2 ml LVAd ap4: 26.2 cm2 LAV(MOD-bp) Indexed: 13.9 ml/m2 LVLd ap4: 7.7 cm LAV(MOD-sp2): 31.9 ml EDV(MOD-sp4): 72.8 ml LAV(MOD-sp4): 20.5 ml EDV(sp4-el): 75.1 ml LVAs ap4: 14.0 cm2 LVLs ap4: 6.0 cm ESV(MOD-sp4): 27.7 ml ESV(sp4-el): 27.5 ml EF(MOD-sp4): 62.0 % EF(sp4-el): 63.4 % LVAd ap2: 27.5 cm2 SV(MOD-sp4): 45.1 ml SV(MOD-sp2): 52.0 ml LVLd ap2: 8.1 cm SI(MOD-sp4): 24.0 ml/m2 SI(MOD-sp2): 27.6 ml/m2 EDV(MOD-sp2): 76.8 ml EDV(sp2-el): 79.1 ml LVAs ap2: 13.5 cm2 LVLs ap2: 6.1 cm ESV(MOD-sp2): 24.8 ml ESV(sp2-el): 25.6 ml EF(MOD-sp2): 67.7 % SV(sp4-el): 47.6 ml Ao sinus diam: 2.[address] Junction: 2.1 cm LA dimension(2D): 3.2 cm LA A4 area: 10.6 cm2 RA A4 area: 11.8 cm2 TAPSE: 1.9 cm Time Measurements MV dec time: 0.20 sec Doppler Measurements & Calculations MV E max demetris: 78.7 cm/sec Lat Peak E' Demetris: 16.8 cm/sec Med Peak E' Demetris: 11.1 cm/sec MV A max demetris: 45.9 cm/sec E/E' lat: 4.7 E/E' med: 7.1 MV E/A: 1.7 MV dec slope: 399.1 cm/sec2 Ao V2 max: 107.8 cm/sec LV V1 max: 103.7 cm/sec Ao max P.6 mmHg LV V1 max P.3 mmHg Ao V2 mean: 78.0 cm/sec LV V1 mean P.2 mmHg Ao mean P.6 mmHg LV V1 mean: 69.7 cm/sec Ao V2 VTI: 21.4 cm LV V1 VTI: 21.7 cm AV (velocity ratio): 1.0 CHELO(I,D): 3.1 cm2 CHELO(V,D): 2.9 cm2 SV(LVOT): 65.6 ml PA V2 max: 96.6 cm/sec ECHO/Echo Complete Interpretation Summary Normal LV size. Left ventricular systolic function is normal. The left ventricular ejection fraction is 65 %. Bubble contrast study is negative for PFO/ASD. Ordering Physician: Zenaida Mehta Performed By: Zamzam Donald RDCS
[2024-08-14 16:05] LABS: Troponin T High Sens 2 HR < 6 ng/L (<=14)
[2024-08-14] MEDS: Aspirin 81 MG TAB.CHEW PO (18:01)
[2024-08-14] MEDS: 0.9% Normal Saline (1000mL) 1,000 ML 100 ML IV (18:07)
[2024-08-14 18:34] LABS: Troponin T High Sens 4 HR < 6 ng/L (<=14)
[2024-08-14] MEDS: Atorvastatin Calcium 80 MG Tablet PO (21:45)
--- NOTE | 2024-08-14 22:04 | PN.HOSP_ITS ---
Hospitalist Note MRI brain without acute stroke.
--- NOTE | 2024-08-14 22:04 | PCM.HOSP.N ---
Hospitalist Note MRI brain without acute stroke.
[2024-08-15 02:24] VITALS: BP 118/70; PULSE 64; RESP 14; TEMP 35.9; O2SAT 98
[2024-08-15 03:00] VITALS: PULSE 71
[2024-08-15 05:54] LABS: Absolute Lymphocyte Count 2.07 X10^3/uL (0.83-4.51); Absolute Neutrophil Count 2.8 X10^3/uL (2.0-7.7); Basophil# 0.06 X10^3/uL; Basophil% 1.1 % (0-1); Eosinophil# 0.24 X10^3/uL; Eosinophils% 4.3 % (0-5); Hematocrit 40.4 % (37-47); Hemoglobin 13.6 g/dL (12.0-15.0); Lymphocyte # 2.07 X10^3/ul (0.83-4.51); Lymphocyte % 37.4 % (19-41); Mean Corp Hgb Conc 33.7 g/dL (32-36); Mean Corpuscular Hgb 30.8 pg (27.0-32.0); Mean Corpuscular Volume 91.4 fL (81-99); Mean Platelet Vol. 9.3 fl (6.2-12.0); Monocyte# 0.39 X10^3/uL; NRBC Flagged by Analyzer 0 % (0-5); Neutrophil # 2.77 X10^3/uL (2.7-7.7); Platelet Count 296 K/mm3 (150-450); RBC Distribution Width CV 11.8 % (11.6-14.6); RBC Distribution Width SD 39.8 fl (35.1-43.9); Red Blood Count 4.42 M/mm3 (4.2-5.4); White Blood Count 5.5 K/mm3 (4.4-11.0)
[2024-08-15] MEDS: 0.9% Normal Saline (1000mL) 1,000 ML 100 ML IV (06:01)
[2024-08-15 06:10] LABS: Prothrombin Time (Protime)PT. 13.6 SECONDS (11.7-14.9)
[2024-08-15 07:04] LABS: Anion Gap 10 (5-15); BUN 15 mg/dL (4-19); BUN/Creat Ratio 17.5 RATIO (10-20); Calcium,Total 8.5 mg/dL (7.6-11.0); Carbon Dioxide 21.5 mmol/L (21.0-32.0); Chloride 109 mmol/L (98-108); Cholesterol 167 mg/dL (<=200); Creatinine, Serum 0.85 mg/dL (0.70-1.20); EST Glomerular Filtration Rate 96 (>60); Glucose 108 mg/dL (70-99); High Density Lipoprotein 59 mg/dL; Low Density Lipoprotein Calc. 86 mg/dL; Potassium 4.4 mmol/L (3.3-5.1); Sodium Level 140 mmol/L (133-145); Triglycerides 110 mg/dL; Very Low Density Lipoprotein 22 mg/dL (5-40); cholesterol:hdl ratio screen 2.84
[2024-08-15 09:00] VITALS: BP 102/66; PULSE 67; RESP 12; TEMP 36.9; O2SAT 99
[2024-08-15] MEDS: Fluoxetine HCl 40 MG CAPSULE PO (09:51)
--- NOTE | 2024-08-15 11:09 | NEURO.CONS ---
Assessment and Plan: Neuro Assessment/Plan ARIES PARISI is a 29 F with a past medical history of , being evaluated by Teleneurology for Diagnosis: Plan: Transfer to [facility] for the following reasons: I personally attended this patient and spent a total time of minutes evaluating this patient including clinical assessment, review of chart, medical history imaging, and determining appropriate treatment and workup. HPI Consult Data Date of Consult: 08/15/24 HPI Narrative HPI Narrative: ARIES PARISI, is a 29-year-old female with a history of anxiety presented to [facility] ED 08/14/2024 with a headache, right facial droop, right-sided numbness of her arm and leg with last known well 10 PM yesterday evening when her symptoms began. Patient was a stroke team and teleneurology evaluated, they felt was most likely a complex migraine but that they would recommend further admission for workup for stroke rule out. In the ED temp 97.6, heart rate 86, blood pressure 154/104, respiratory rate 16, pulse ox 99% on room air. CT head and CTA head and neck unremarkable, CBC with no abnormalities. Hospitalist contacted for admission for stroke rule out. Patient evaluated at bedside. She reports that she had a headache when she went to bed last night and then today at some time when she was at work she noticed that her right arm felt like it was asleep and she had the right facial droop. Coming in she is presently denying that she ever had any sensory changes in her right leg though mother reports she had endorsed this earlier. Right now arm feels back to normal, still slight facial droop, still has right-sided headache and runny nose on the right side with some conjunctival injection which she thought was allergies. Denies any nausea or vomiting, no other numbness weakness or tingling. No other acute complaints Neurologic History Exam: -? General: Laying comfortably in bed; in no acute distress. -? HENT: Normal oropharynx and mucosa. Normal external appearance of ears and nose. Exophthalmos. -? Neck: Supple, no pain or tenderness -? CV:? No peripheral edema. -? Pulmonary:? Normal respiratory effort. -? Ext: No cyanosis, edema, or deformity -? Skin: No rash. Normal palpation of skin.? -? Musculoskeletal: full range of motion; no joint tenderness. Normal digits and nails by inspection. No clubbing. -? NEURO: -? Mental Status: The patient was alert and oriented to time, place, and person. Normal recent/remote memory, concentration, and general fund of knowledge. -? Language: speech is .? Naming, repetition, fluency, and comprehension intact. -? Cranial Nerves: PERRL mm/brisk. EOMI, visual alcocer full, no facial asymmetry, facial sensation intact, hearing intact, tongue midline, no evidence of atrophy or fibrillations. As performed by the nurse/KENNY Sternocleidomastoid and trapezius were equally strong. Soft palate raises equally, no uvular deviations -? Motor: normal bulk, tone, and strength throughout. No pronator drift or satelliting. Upper and lower extremities equal bilaterally. -? Detailed strength exam as performed by the nurse/KENNY and witnessed by the physician: R L SA EE EF WE WF Lockstitch Zipper Setter HF KE KF DF PF -? Detailed reflex exam as performed by the nurse/KENNY and witnessed by the physician: R L Biceps Patellar Ankle Babinski -? Tone: is normal and bulk is normal -? Sensation- Intact to light touch bilaterally -? Coordination: No dysmetria on [id number], finger follow finger or [id number]. -? Gait- Gait initiation was normal. Narrow base with good heel strike and stride length was observed during ambulation. Turns were in stride. Patient was able to walk normally in tandem. Romberg was normal. [facility] Medical History Bilateral pulmonary infiltrates Vaginal delivery Dysuria Urinary tract infection affecting Anxiety COVID-19 Home Medications ?Medication ?Instructions ?Recorded ?Last Taken ?Type spironolactone 100 mg tablet 100 mg PO QDAY diuretic 01/01/24 08/13/24 History dupilumab 300 mg/2 mL subcutaneous 300 mg subcut .COMPLEX skin 06/24/24 08/10/24 History syringe (Dupixent) drospirenone 3 mg-ethinyl 1 tab PO DAILY #84 tabs 08/02/24 08/13/24 Rx estradiol 0.02 mg tablet (JAME (28)) multivitamin 1 tab PO QDAY vitamin 08/02/24 08/13/24 History fluoxetine 40 mg capsule 40 mg PO DAILY mental health #30 08/12/24 08/13/24 Rx caps ciprofloxacin HCl 0.3 % eye drops See Rx Instructions EACH EYE 08/15/24 Unknown Rx .COMPLEX #5 mL Allergy/AdvReac Type Severity Reaction Status Date / Time gluten Allergy Intermediate Abd Verified 08/02/24 11:17 cramps/diarrhea cefuroxime (From Ceftin) Allergy Rash Verified 08/02/24 11:17 coconut AdvReac Intermediate Rash Verified 08/02/24 11:17 Family History Grandfather Throat cancer Grandfather Alzheimer disease Dementia Grandmother Cancer Mother Breast cancer, Onset Age: 25 Endometriosis Father No problems noted. 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[employer] current occupational exposures/hazards: Yes pets and animals: Yes history of recent travel: No sexually active: Yes Smoking Status: Former smoker Electronic Cigarette Use: with nicotine alcohol intake: never substance use type: does not use caffeine: Yes what type of physical activity do you participate in: walking and weight training frequency: 1-2 times per week seatbelt use: always do you feel safe at home: Yes additional social history: Spouse - Marcos Medical Information Officer Vital Signs Vital Signs Vital Signs: 08/14/24 11:59 08/14/24 12:00 08/14/24 12:13 Temperature 97.6 F L Temperature Source Temporal Pulse Rate 86 86 Respiratory Rate 16 16 Respiratory Effort Respiratory Depth Respiratory Pattern Blood Pressure 154/104 H 154/104 H Blood Pressure Mean 120 120 Blood Pressure Source Blood Pressure Position Blood Pressure Location Pulse Ox 99 99 Oxygen Delivery Method Room Air Room Air Room Air Oxygen Flow Rate (L/min) 08/14/24 12:15 08/14/24 12:30 08/14/24 13:00 Temperature Temperature Source Pulse Rate 83 76 73 Respiratory Rate 18 21 H 24 H Respiratory Effort Respiratory Depth Respiratory Pattern Blood Pressure 137/81 H 135/88 H 132/85 H Blood Pressure Mean 99 103 100 Blood Pressure Source Blood Pressure Position Blood Pressure Location Pulse Ox 99 97 96 Oxygen Delivery Method Room Air Room Air Room Air Oxygen Flow Rate (L/min) 08/14/24 13:30 08/14/24 14:00 08/14/24 14:05 Temperature Temperature Source Pulse Rate 80 60 Respiratory Rate 16 17 Respiratory Effort Respiratory Depth Respiratory Pattern Blood Pressure 126/83 H 116/74 Blood Pressure Mean 97 88 Blood Pressure Source Blood Pressure Position Blood Pressure Location Pulse Ox 98 100 99 Oxygen Delivery Method Room Air Room Air Nasal Cannula Oxygen Flow Rate (L/min) 2 08/14/24 14:05 08/14/24 14:30 08/14/24 15:00 Temperature 98.6 F Temperature Source Pulse Rate 63 67 62 Respiratory Rate 15 18 14 Respiratory Effort Respiratory Depth Respiratory Pattern Blood Pressure 116/74 112/80 115/61 Blood Pressure Mean 88 90 79 Blood Pressure Source Blood Pressure Position Blood Pressure Location Pulse Ox 99 99 99 Oxygen Delivery Method Room Air Room Air Oxygen Flow Rate (L/min) 08/14/24 15:30 08/14/24 16:21 08/14/24 16:51 Temperature 97.8 F Temperature Source Oral Pulse Rate 70 62 Respiratory Rate 21 H 16 Respiratory Effort Normal Non-Labored Respiratory Depth Normal Respiratory Pattern Normal Blood Pressure 119/78 115/76 Blood Pressure Mean 91 89 Blood Pressure Source Monitor Blood Pressure Position Supine Blood Pressure Location Left Arm Pulse Ox 94 100 Oxygen Delivery Method Room Air Room Air Room Air Oxygen Flow Rate (L/min) 08/14/24 19:00 08/14/24 20:15 08/14/24 20:17 Temperature 98.4 F Temperature Source Oral Pulse Rate 60 62 Respiratory Rate 14 Respiratory Effort Normal Non-Labored Respiratory Depth Normal Respiratory Pattern Normal Blood Pressure 98/57 L Blood Pressure Mean 70 Blood Pressure Source Monitor Blood Pressure Position Right Lateral Blood Pressure Location Left Arm Pulse Ox 97 Oxygen Delivery Method Room Air Room Air Oxygen Flow Rate (L/min) 08/15/24 02:24 08/15/24 03:00 08/15/24 07:51 Temperature 96.6 F L Temperature Source Oral Pulse Rate 64 71 Respiratory Rate 14 Respiratory Effort Respiratory Depth Respiratory Pattern Blood Pressure 118/70 Blood Pressure Mean 86 Blood Pressure Source Monitor Blood Pressure Position Left Lateral Blood Pressure Location Left Arm Pulse Ox 98 Oxygen Delivery Method Room Air Room Air Oxygen Flow Rate (L/min) 08/15/24 09:00 08/15/24 10:00 Temperature 98.4 F Temperature Source Oral Pulse Rate 67 Respiratory Rate 12 Respiratory Effort Respiratory Depth Respiratory Pattern Blood Pressure 102/66 Blood Pressure Mean 78 Blood Pressure Source Monitor Blood Pressure Position Sitting Blood Pressure Location Left Arm Pulse Ox 99 Oxygen Delivery Method Room Air Room Air Oxygen Flow Rate (L/min) Weight Weight: 75.6 kg Body Mass Index (BMI) 26.1 EEG Results Procedure Details EEG Procedure Details: ARIES PARISI is a 29 year old F with a past medical history of , who presents for evaluation of Electroencephalogram on DATE at TIME Lab / Micro Data 08/15/24 05:40 08/15/24 05:40 Labs: Laboratory Results - last 24 hr 08/14/24 12:18: POC Glucose 93 08/14/24 12:45: WBC 7.3, RBC 4.44, Hgb 13.8, Hct 39.9, MCV 89.9, MCH 31.1, MCHC 34.6, RDW Std Deviation 38.6, RDW Coeff of Marley 11.9, Plt Count 315, MPV 9.5, Immature Gran % (Auto) 0.100, Neut % (Auto) 59.3, Lymph % (Auto) 31.5, [place] % (Auto) 6.0, Eos % (Auto) 2.1, Baso % (Auto) 1.0, Absolute Neuts (auto) 4.3, Absolute Lymphs (auto) 2.29, Nucleated RBC % 0, PT 13.5, INR 1.0, APTT 24.6 08/14/24 13:34: Sodium 136, Potassium 4.0, Chloride 103, Carbon Dioxide 21.5, Anion Gap 11, BUN 19, Creatinine 0.84, Estim Creat Clear Calc 105.69, Est GFR (MDRD) Non-Af 96, BUN/Creatinine Ratio 23.0 H, Glucose 98, Calcium 8.9, Troponin T High Sens < 6 08/14/24 15:34: Troponin T Hi Sens 2 Hr < 6 08/14/24 17:56: Troponin T Hi Sens 4Hr < 6 08/15/24 05:40: WBC 5.5, RBC 4.42, Hgb 13.6, Hct 40.4, MCV 91.4, MCH 30.8, MCHC 33.7, RDW Std Deviation 39.8, RDW Coeff of [place] 11.8, Plt Count 296, MPV 9.3, Immature Gran % (Auto) 0.200, Neut % (Auto) 50.0, Lymph % (Auto) 37.4, [place] % (Auto) 7.0, Eos % (Auto) 4.3, Baso % (Auto) 1.1 H, Absolute Neuts (auto) 2.8, Absolute Lymphs (auto) 2.07, Nucleated RBC % 0, PT 13.6, INR 1.0, Sodium 140, Potassium 4.4, Chloride 109 H, Carbon Dioxide 21.5, Anion Gap 10, BUN 15, Creatinine 0.85, Estim Creat Clear Calc 103.60, Est GFR (MDRD) Non-Af 96, BUN/Creatinine Ratio 17.5, Glucose 108 H, Calcium 8.5, Triglycerides 110, Cholesterol 167, LDL Cholesterol, Calc 86, VLDL Cholesterol 22, HDL Cholesterol 59, Cholesterol/HDL Ratio 2.84, TSH 2.820 Imaging Radiology Impression Brain CT 08/14/24 11:55 IMPRESSION: No visible acute intracranial findings. If there is persistent concern for an acute intracranial process, recommend MRI. Red Alert: As above The critical information above was relayed directly by me by telephone to Ricky Gaines on 08/14/2024 at 10:56 am. Reading Location: [facility] Head/Neck CTA 08/14/24 11:57 IMPRESSION: 1. No high-grade stenosis or large vessel occlusion identified. 2. Additional description as above. Reading Location: [id number] Brain MRI 08/14/24 14:25 IMPRESSION: No acute infarction or intracranial hemorrhage. Reading Location: [id number] Echocardiogram 08/14/24 14:25 Interpretation Summary Normal LV size. Left ventricular systolic function is normal. The left ventricular ejection fraction is 65 %. Bubble contrast study is negative for PFO/ASD. Ordering Physician: Zenaida Mehta Performed By: Zamzam Donald RDCS Active Medications Active Medications Active Medications: Current Medications Generic Name Dose Route Start Last Admin Trade Name Freq PRN Reason Stop Dose Admin Acetaminophen 650 mg 08/14/24 16:16 Acetaminophen 325 Mg Tablet PO Q6H PRN PRN Pain 1-10 Or Fever >100.7 Albuterol Sulfate 2.5 mg 08/14/24 16:16 Albuterol 2.5 Mg/3 Ml Vial.Neb. INHALATION Q2H PRN PRN SOB &/OR WHEEZING Aspirin 81 mg 08/15/24 08:00 08/15/24 09:56 Aspirin 81 Mg Tab.Chew PO Not Given BREAKFAST SHAINA Atorvastatin Calcium 80 mg 08/14/24 22:00 08/14/24 21:45 Atorvastatin Calcium 80 Mg Tablet PO 80 mg QHS SHAINA Administration Fluoxetine HCl 40 mg 08/15/24 10:00 08/15/24 09:51 Fluoxetine Hcl 40 Mg Capsule PO 40 mg DAILY SHAINA Administration Hydralazine HCl 5 mg 08/14/24 16:16 Hydralazine 20 Mg/Ml Vial IV 08/15/24 16:16 Q30M PRN maintain BP parameters with HR <60 Sodium Chloride 1,000 mls @ 100 mls/hr 08/14/24 16:16 08/15/24 06:01 IV 08/15/24 12:15 100 mls/hr .Q10H SHAINA Administration Sodium Chloride 250 mls @ 15 mls/hr 08/14/24 18:34 IV .[id number] PRN Saline Flush Sodium Chloride 250 mls @ 15 mls/hr 08/14/24 18:34 IV .[id number] PRN Additional IVPB Infusion Ketorolac Tromethamine 30 mg 08/14/24 16:16 Ketorolac 30 Mg/Ml Syringe IV 08/19/24 16:16 Q6H PRN PRN Pain Score 1-10 Labetalol HCl 20 mg 08/14/24 11:56 Labetalol 20 Mg/4 Ml Vial IV 08/15/24 11:56 X1 PRN BLOOD PRESSURE Labetalol HCl 10 - 20 mg 08/14/24 16:16 Labetalol 20 Mg/4 Ml Vial IV 08/15/24 16:16 Q10M PRN PRN maintain BP parameters with HR >/=60 Lorazepam 0.5 mg 08/14/24 17:30 Lorazepam 0.5 Mg Tablet PO X1 PRN Anxiety with MRI Melatonin 10 mg 08/14/24 16:16 Melatonin 10 Mg Tablet PO QHS PRN PRN INSOMNIA Ondansetron HCl 4 mg 08/14/24 16:16 Ondansetron 4 Mg/2 Ml Vial IV Q8H PRN PRN NAUSEA/VOMITING Senna/Docusate Sodium 2 tablet 08/14/24 16:16 Senna/Docusate Sodium 1 Tablet PO BID PRN PRN Constipation Sodium Chloride 10 - 40 ml 08/14/24 18:34 0.9% Saline Lock 10 Ml Syringe IV UD PRN SALINE FLUSH Spironolactone 100 mg 08/15/24 10:00 08/15/24 09:51 Spironolactone 50 Mg Tablet PO 100 mg DAILY SHAINA Administration NIHSS NIHSS Nursing Documentation NIHSS Nursing Documentation: NIHSS: Ischemic Stroke/TIA Start: 08/14/24 16:16 Text: For PCU Patients: NIH and Neuro Check every 4 Status: Complete hours, PRN and with change in RN caregiver. Freq: [id number] Protocol: Activity Type Activity Date Activity User E-sign Co-sign Detail Recorded Client Recorded Date Recorded By Document 08/14/24 19:11 RM [id number] 08/14/24 20:30 08/14/24 19:11 NIH Stroke Scale [NIHSS] A score of 0 is normal or asymptomatic . Total possible score is 42. Inpatient: RN or Physician to activate a stroke alert for onset of new stroke symptoms or with NIHSS increase >/= 3 points. Following change in neurological status, NIHSS will be performed per physician order or more frequently PRN. -1a. Level of Consciousness 0 - Alert; keenly responsive -1b. LOC Questions 0 - Answers BOTH questions correctly -1c. LOC Commands 0 - Performs BOTH tasks correctly -2. Best Gaze 0 - Normal -3. Visual 0 - No visual loss -5a. Left Arm 0 - No drift; arm holds 90 ( or 45) degrees for full 10 seconds -5b. Right Arm 0 - No drift; arm holds 90 ( or 45) degrees for full 10 seconds -6a. Left Leg 0 - No drift; leg holds 30- degree position for full 5 seconds -6b. Right Leg 0 - No drift; leg holds 30- degree position for full 5 seconds -7. Limb Ataxia 0 - Absent -8. Sensory 0 - Normal; no sensory loss -9. Best Language 0 - No aphasia; normal -10. Dysarthria 0 - Normal -11. Extinction and Inattention 0 - No abnormality -Total 0 Query Text:A score of 0 is normal or asymptomatic. Total possible score is 42 . ED: Notify Physician for NIHSS increase by > / = 3 points. Inpatient: RN or Physician to activate a stroke alert for NIHSS increase of > / = 3 points. Coma Scale [Assess] -Eye Opening Spontaneous -Motor Obeys Commands -Verbal Oriented [Total] -Coma Scale Total 15
--- NOTE | 2024-08-15 11:59 | PCM.DC ---
Discharge Instructions Diet Discharge Diet: No restrictions DC O2, CPAP, BIPAP needs Home O2 Discharge instructions: No Dressing / Incision Discharge Activity: No Restrictions Weight Bearing Status: Full weight bearing Follow Up Care Test Results: Test results from this visit will be discussed in further detail at your follow-up appointment, if applicable. Discharge Plan Admission Admit Date/Time: 08/14/24 14:18 Primary Reason for Your Visit: Complex migraine Attending Provider: Ritchie Iverson Primary Care Provider: Melanie Russo Consulting Providers: Daniel Moe; Alice Jose; Radha Gaspar; Genia Wells; Nani Lopez; Jeferson Condon; Angeles Bland; Silver Li; Charlie Martinez; Sourav Huizar; Patrizia Choi; Noel Ayon; Maria L Ballesteros; Jake Ng; Devora Mitchell; Bruno Ordonez; Jose Leone; Nigel Duncan; Vanessa Mantilla; Puneet Aiken; Zenaida Mehta Instructions Additional Instructions / Restrictions: You may use 2 Excedrin at the onset of headache for headache relief Discharge Orders/Prescriptions Prescriptions: New ciprofloxacin HCl 0.3 % drops See Rx Instructions .ROUTE .COMPLEX Qty: 5 0RF Rx Instructions: put 1-2 drps in affected eye(s) every 2hr up to 8 times/day x2days; then 4 times/day x5days Continued spironolactone 100 mg tablet 100 mg PO QDAY multivitamin Tablet 1 tab PO QDAY Dupixent Syringe 300 mg/2 mL syringe 300 mg subcut .COMPLEX Rx Instructions: 300 mg subcutaneously qoweek; drospirenone-ethinyl estradiol [JAME (28)] 3-0.02 mg tablet 1 tab PO DAILY Qty: 84 4RF Rx Instructions: take active pills only fluoxetine 40 mg capsule 40 mg PO DAILY Qty: 30 12RF Referrals / Follow Up: Bella Ma DO [Med Staff - Active Staff] - Melanie Russo, MAINTENANCE MECHANIC ENGINE-[employer] [Primary Care Provider] - Within 2 Weeks Disposition Disposition (needs filled in before D/C Order can be placed): Home, Self Care
--- NOTE | 2024-08-15 12:03 | PCM.DC.SUM ---
Providers Date of Admission: 08/14/24 Date of Discharge: 08/15/24 Primary Care Physician: DEMI Jain Consultations 08/14/24 16:16 Consult: Tele-Neurology Routine Consulting Provider: [facility] Reason for Consult: Acute Ischemic Stroke/TIA EMERGENT Consult: No MD Notified: Yes Date Notified: 08/14/24 Time Notified: 16:34 Method of Notification: Answering Service Nursing Unit Staff Notify [facility] of Tele-Neurology Consult: Yes Reason For Visit: CVA RULE OUT Diagnosis Discharge Diagnosis (1) Facial droop: Status: Acute Code(s): R29.810 - Facial weakness (2) Right sided numbness: Status: Acute Code(s): R20.0 - Anesthesia of skin Plan Final diagnosis: #1 complex migraine #2 right eye conjunctivitis #3 chronic anxiety Medications at Discharge Home Medications spironolactone 100 mg tablet 100 mg PO QDAY diuretic 01/01/24 dupilumab 300 mg/2 mL subcutaneous syringe ([employer]) 300 mg subcut .COMPLEX skin 06/24/24 drospirenone 3 mg-ethinyl estradiol 0.02 mg tablet (JAME (28)) 1 tab PO DAILY #84 tabs 08/02/24 multivitamin 1 tab PO QDAY vitamin 08/02/24 fluoxetine 40 mg capsule 40 mg PO DAILY mental health #30 caps 08/12/24 ciprofloxacin HCl 0.3 % eye drops See Rx Instructions EACH EYE .COMPLEX #5 mL 08/15/24 Hospital Course Operations None Procedures 2-D Echocardiogram Summary of Care Provided Minutes Spent on Discharge: 31 Hospital Course: This 29-year-old white female was seen in the emergency room at [facility] with complaints of a headache, right facial droop, right-sided numbness of her arm and leg that worsened during the day. Her last well-known was 10 PM the day before, that was when her symptoms began. Stroke team was called, the case was discussed with the neurologist, given the patient's mild symptoms which were non-debilitating, it was not felt that TNK was indicated. Neurology stated that was most likely due to a complex migraine. Patient had a CT of brain and a CTA of the head and neck both which were unremarkable. Lab work was also unremarkable. The patient was placed in observation status on PCU, she underwent an echocardiogram which showed no evidence of thrombus or PFO. Patient's headache subsided and her symptoms also subsided. She had mild conjunctivitis in her right eye that was present on admission. On 08/15/2024, the patient was seen and examined: On examination she appeared in good health and spirits, she does not appear to be in any distress. Vital signs as documented. Skin warm and dry and without overt rashes. Neck without JVD, thyroid appears normal, trachea is midline, neck is supple. Lungs clear, normal air movement was noted. Heart exam notable for regular rhythm, normal sounds and absence of murmurs, rubs or gallops. Abdomen unremarkable and without evidence of organomegaly, masses, or abdominal aortic enlargement, bowel sounds are present in all 4 quadrants, no abdominal tenderness was noted. Extremities nonedematous, no cyanosis was noted, no clubbing was noted. Neuro: Cranial nerves II through XII are grossly intact, no focal motor deficits were noted, sensation to light touch and pinprick is intact, motor exam 5/5 throughout. Psych: Patient is alert and oriented x3, she does not appear anxious or depressed, she does not appear agitated. Patient was discharged home in stable condition on 08/15/2024, she was instructed to ask her primary care physician about migraine treatment. Weight / BMI Weight Weight: 75.6 kg Body Mass Index (BMI) 26.1 ABG / Lab / Microbiology Data 08/15/24 05:40 08/15/24 05:40 Laboratory: Laboratory Results - last 24 hr 08/14/24 12:18: POC Glucose 93 08/14/24 12:45: WBC 7.3, RBC 4.44, Hgb 13.8, Hct 39.9, MCV 89.9, MCH 31.1, MCHC 34.6, RDW Std Deviation 38.6, RDW Coeff of Marley 11.9, Plt Count 315, MPV 9.5, Immature Gran % (Auto) 0.100, Neut % (Auto) 59.3, Lymph % (Auto) 31.5, Florence % (Auto) 6.0, Eos % (Auto) 2.1, Baso % (Auto) 1.0, Absolute Neuts (auto) 4.3, Absolute Lymphs (auto) 2.29, Nucleated RBC % 0, PT 13.5, INR 1.0, APTT 24.6 08/14/24 13:34: Sodium 136, Potassium 4.0, Chloride 103, Carbon Dioxide 21.5, Anion Gap 11, BUN 19, Creatinine 0.84, Estim Creat Clear Calc 105.69, Est GFR (MDRD) Non-Af 96, BUN/Creatinine Ratio 23.0 H, Glucose 98, Calcium 8.9, Troponin T High Sens < 6 08/14/24 15:34: Troponin T Hi Sens 2 Hr < 6 08/14/24 17:56: Troponin T Hi Sens 4Hr < 6 08/15/24 05:40: WBC 5.5, RBC 4.42, Hgb 13.6, Hct 40.4, MCV 91.4, MCH 30.8, MCHC 33.7, RDW Std Deviation 39.8, RDW Coeff of Marley 11.8, Plt Count 296, MPV 9.3, Immature Gran % (Auto) 0.200, Neut % (Auto) 50.0, Lymph % (Auto) 37.4, Florence % (Auto) 7.0, Eos % (Auto) 4.3, Baso % (Auto) 1.1 H, Absolute Neuts (auto) 2.8, Absolute Lymphs (auto) 2.07, Nucleated RBC % 0, PT 13.6, INR 1.0, Sodium 140, Potassium 4.4, Chloride 109 H, Carbon Dioxide 21.5, Anion Gap 10, BUN 15, Creatinine 0.85, Estim Creat Clear Calc 103.60, Est GFR (MDRD) Non-Af 96, BUN/Creatinine Ratio 17.5, Glucose 108 H, Calcium 8.5, Triglycerides 110, Cholesterol 167, LDL Cholesterol, Calc 86, VLDL Cholesterol 22, HDL Cholesterol 59, Cholesterol/HDL Ratio 2.84, TSH 2.820 Radiography Diagnostic Testing: Radiology Impression Brain CT 08/14/24 11:55 IMPRESSION: No visible acute intracranial findings. If there is persistent concern for an acute intracranial process, recommend MRI. Red Alert: As above The critical information above was relayed directly by me by telephone to Ricky Gaines on 08/14/2024 at 10:56 am. Reading Location: [id number] Head/Neck CTA 08/14/24 11:57 IMPRESSION: 1. No high-grade stenosis or large vessel occlusion identified. 2. Additional description as above. Reading Location: [id number] Brain MRI 08/14/24 14:25 IMPRESSION: No acute infarction or intracranial hemorrhage. Reading Location: [facility] Echocardiogram 08/14/24 14:25 Interpretation Summary Normal LV size. Left ventricular systolic function is normal. The left ventricular ejection fraction is 65 %. Bubble contrast study is negative for PFO/ASD. Ordering Physician: Zenaida Mehta Performed By: Zamzam Donald RDCS D/C Instructions Discharge Diet: No restrictions Weight Bearing Status: Full weight bearing DC O2, CPAP, BIPAP Needs Home O2 Discharge instructions: No Meaningful Use Info Meaningful Use Meaningful Use Diagnoses (Choose all that apply): None applicable Ischemic Stroke Statin Dosing Therapy Reference: STATIN DOSE THERAPY REFERENCE: * Patients > 75 years receive moderate or high dose statin therapy. * Patients 75 years or YOUNGER should receive HIGH intensity statin dose unless contraindicated. You will be required to document reason for non-treatment if statin daily dose does not meet guidelines. HIGH DOSE STATIN THERAPY DAILY Atorvastatin > than or = to 40 mg Rosuvastatin > than or = to 20 mg Amlodipine + Atorvastatin > than or = to 2.5/40 mg Ezetimibe + Simvastatin 10/80 mg Simvastatin 80mg Discharge Plan Admission Admit Date/Time: 08/14/24 14:18 Primary Reason for Your Visit: Complex migraine Attending Provider: Ritchie Iverson Primary Care Provider: Melanie Russo Consulting Providers: Daniel Moe; Alice Jose; Radha Gaspar; Genia Wells; Nani Lopez; Jeferson Condon; Angeles Bland; Silver Li; Charlie Martinez; Sourav Huizar; Patrizia Choi; Noel Ayon; Maria L Ballesteros; Jake Ng; Devora Mitchell; Bruno Ordonez; Jose Leone; Nigel Duncan; Vanessa Mantilla; Puneet Aiken; Zenaida Mehat Instructions Additional Instructions / Restrictions: You may use 2 Excedrin at the onset of headache for headache relief Discharge Orders/Prescriptions Prescriptions: New ciprofloxacin HCl 0.3 % drops See Rx Instructions .ROUTE .COMPLEX Qty: 5 0RF Rx Instructions: put 1-2 drps in affected eye(s) every 2hr up to 8 times/day x2days; then 4 times/day x5days Continued spironolactone 100 mg tablet 100 mg PO QDAY multivitamin Tablet 1 tab PO QDAY Dupixent Syringe 300 mg/2 mL syringe 300 mg subcut .COMPLEX Rx Instructions: 300 mg subcutaneously qoweek; drospirenone-ethinyl estradiol [JAME (28)] 3-0.02 mg tablet 1 tab PO DAILY Qty: 84 4RF Rx Instructions: take active pills only fluoxetine 40 mg capsule 40 mg PO DAILY Qty: 30 12RF Referrals / Follow Up: Bella Ma DO [Med Staff - Active Staff] - Melanie Russo NP-C [Primary Care Provider] - Within 2 Weeks Disposition Disposition (needs filled in before D/C Order can be placed): Home, Self Care Charges/Coding Visit Charges Inpatient E&M: 63481 Disch Hosp >30min
--- NOTE | 2024-08-15 12:29 | CASEMGMT ---
SW did not complete a PHQ9 as patient did not have a Stroke. Tasneem MUNIZ
--- NOTE | 2024-08-15 12:34 | CASEMGMT ---
Patient has order for discharge. RN CM in to discuss needs at discharge. Patient denies needs or help at discharge. Patient had no further questions or concerns.
== END 2024-08-15 12:03 | disposition home or self-care (01) ==
LOC: ED 14:06 → PCU 15:28
PROVIDERS: Admitting Provider Internal Medicine; Emergency Provider Emergency Medicine; PCP Nurse Practitioner Family; Visit Provider Internal Medicine
DX: G43.109 Migraine with aura, not intractable, without status migrainosus (principal); H10.9 Unspecified conjunctivitis; Z87.891 Personal history of nicotine dependence; R29.810 Facial weakness; R20.2 Paresthesia of skin; F41.9 Anxiety disorder, unspecified; Z79.899 Other long term (current) drug therapy
CPT/HCPCS: 36415; 70450; 70496; 70498; 70551; 80048; 80061; 82962; 84443; 84484; 85025; 85610; 85730; 93005; 93306; 96361; 96374; 96375; 99221; 99285; Q9967; A4216; G0378

== ENCOUNTER → 2024-10-30 | Outpatient (CLI) | payer OTHER, SELFPAY ==
[2024-11-01 13:08] LABS: QNTFERON TB Mitogen Value > 10.00 IU/mL (.); QNTFERON TB Nil Value 0.03 IU/mL (.); QNTFERON TB1+ Ag Value 0.01 IU/mL (.); QNTFERON TB2+ Ag Value 0 IU/mL (.); QNTIFERON TB Positive Criteria Negative (Negative)
== END | disposition home or self-care (01) ==
LOC: MTLAB 11:38
PROVIDERS: PCP Nurse Practitioner Family; Referring Provider Physician Assistant Medical; Visit Provider Physician Assistant Medical
DX: Z79.899 Other long term (current) drug therapy (principal)
CPT/HCPCS: 36415; 86480